=== PATIENT | male | born 1935 | race Caucasian/White ===

== ENCOUNTER 2016-12-23 08:54 | Outpatient (CLI) | payer MEDICARE ==
[2016-12-23 10:03] LABS: #Basophils 0.1 thou/uL (0.0-0.2); #Eosinphils 0.4 thou/uL (0.0-0.7); #Lymphocytes 1.6 thou/uL (1.20-3.40); #Monocytes 0.7 thou/uL (0.11-0.59); #Neutrophils 4.3 thou/uL (1.40-6.50); %Eosinophils 5.6 % (0.0-10.0); %Lymphocytes 22.6 % (21.0-51.0); %Monocytes 9.4 % (0.0-10.0); %Neutrophils 61.4 % (42.0-75.0); Hemoglobin 13.8 g/dL (14.0-18.0); Mean Corpuscular HGB CONC 30.9 g/dL (32.0-36.0); Mean Corpuscular Hemoglobin 25.8 pg (27.0-31.0); Mean Corpuscular Volume 83.6 fl (80.0-94.0); Mean Platelet Volume 7.7 fL (7.4-10.4); Platelet Count 177 thou/uL (130-400); RBC Distribution Width 17.8 % (11.5-14.5); Red Blood Cell (RBC) Count 5.37 mill/uL (4.70-6.10)
[2016-12-23 10:05] LABS: Hemoglobin A1c 5.9 % (4.0-6.0)
[2016-12-23 10:44] LABS: ALT (SGPT) 18 U/L (0-55); AST (SGOT) 21 U/L (5-34); Albumin 3.9 g/dL (3.4-4.8); Alkaline Phosphatase 62 U/L (40-150); Anion Gap 16 mmol/L (10-20); BUN (Urea Nitrogen) 30 mg/dL (8.4-25.7); Bilirubin, Direct 0.2 mg/dL (0.1-0.3); Bilirubin, Total 0.4 mg/dL (0.2-1.2); Calc. Creatinine Clearance 0 mL/min (70-130); Calcium 9.4 mg/dL (7.8-10.44); Carbon Dioxide 26 mmol/L (23-31); Cardiac Risk 3.1 (Less than 4.5); Chloride 103 mmol/L (98-107); Cholesterol 144 mg/dL (< 200 Desired); Estimated GFR-MDRD 34; Globulin 3.3 g/dL (2.4-3.5); Glucose 101 mg/dL (83-110); HDL Cholesterol 46 mg/dL (>60 Neg Risk); LDL Cholesterol, Calculated 68 mg/dL; Potassium 4.8 mmol/L (3.5-5.1); Protein, Total 7.2 g/dL (5.8-8.1); Sodium 140 mmol/L (136-145); Triglycerides 151 mg/dL (Less than 150)
[2016-12-24 12:15] LABS: % Free PSA 18.4 % (.); Total PSA 6.3 ng/mL (0.0-4.0)
== END 2016-12-23 08:55 ==
LOC: MADLABBHPM 08:54
PROVIDERS: ATTEND Urology
DX: E11.9 Type 2 diabetes mellitus without complications (principal)
CPT/HCPCS: 36415; 80053; 80061; 82248; 83036; 84153; 84154; 85025

== ENCOUNTER 2017-01-29 14:20 | Outpatient (CLI) | payer MEDICARE ==
--- NOTE | 2017-01-29 16:55 | RAD ---
TWO VIEW CHEST: Comparison: 01-28-16 Clinical history: Bronchitis. FINDINGS: Re-demonstration of sternotomy. Cardiac silhouette is stable. There is a new nodular density at the right lung base. Chest is otherwise stable. IMPRESSION: Nodular density of the right lung base. This is nonspecific. Possibility of underlying pulmonary nod ule is the diagnosis of exclusion. Recommend follow up CT thorax for further evaluation. Code T POS: CHRISTIE
== END 2017-01-29 14:21 | disposition home or self-care (01) ==
LOC: MADRAD 14:20
PROVIDERS: ATTEND Family Medicine
DX: J45.909 Unspecified asthma, uncomplicated (principal); J98.4 Other disorders of lung
CPT/HCPCS: 71020

== ENCOUNTER 2017-06-18 09:29 | Outpatient (CLI) | payer MEDICARE ==
[2017-06-18 10:06] LABS: #Basophils 0.1 thou/uL (0.0-0.2); #Eosinphils 0.1 thou/uL (0.0-0.7); #Lymphocytes 1.4 thou/uL (1.20-3.40); #Monocytes 0.6 thou/uL (0.11-0.59); #Neutrophils 5.7 thou/uL (1.40-6.50); %Basophils 0.9 % (0.0-1.0); %Eosinophils 1.4 % (0.0-10.0); %Lymphocytes 17.8 % (21.0-51.0); %Monocytes 8.1 % (0.0-10.0); %Neutrophils 71.7 % (42.0-75.0); Hemoglobin 14.9 g/dL (14.0-18.0); Mean Corpuscular HGB CONC 30.4 g/dL (32.0-36.0); Mean Corpuscular Hemoglobin 25.8 pg (27.0-31.0); Mean Corpuscular Volume 85.1 fl (80.0-94.0); Mean Platelet Volume 8.4 fL (7.4-10.4); Platelet Count 180 thou/uL (130-400); RBC Distribution Width 15.5 % (11.5-14.5); Red Blood Cell (RBC) Count 5.79 mill/uL (4.70-6.10); White Blood Cell (WBC) Count 7.9 thou/uL (4.8-10.8)
[2017-06-18 11:23] LABS: Hemoglobin A1c 7.1 % (4.0-6.0)
[2017-06-18 11:32] LABS: ALT (SGPT) 30 U/L (8-55); AST (SGOT) 19 U/L (5-34); Albumin 3.6 g/dL (3.4-4.8); Alkaline Phosphatase 64 U/L (40-150); Anion Gap 14 mmol/L (10-20); BUN (Urea Nitrogen) 26 mg/dL (8.4-25.7); Bilirubin, Direct 0.2 mg/dL (0.1-0.3); Bilirubin, Total 0.4 mg/dL (0.2-1.2); Calc. Creatinine Clearance 0 mL/min (70-130); Calcium 9.2 mg/dL (7.8-10.44); Carbon Dioxide 30 mmol/L (23-31); Cardiac Risk 3.4 (Less than 4.5); Chloride 102 mmol/L (98-107); Cholesterol 172 mg/dl (< 200 Desired); Estimated GFR-MDRD 33; Glucose 124 mg/dL (83-110); HDL Cholesterol 50 mg/dL (>60 Neg Risk); LDL Cholesterol, Calculated 85 mg/dL; Potassium 3.8 mmol/L (3.5-5.1); Protein, Total 7.1 g/dL (5.8-8.1); Sodium 142 mmol/L (136-145); Triglycerides 183 mg/dL (Less than 150)
== END 2017-06-18 09:30 | disposition home or self-care (01) ==
LOC: MADLABBHPM 09:29
PROVIDERS: ATTEND Family Medicine
DX: E78.5 Hyperlipidemia, unspecified (principal); E11.22 Type 2 diabetes mellitus with diabetic chronic kidney disease; N18.9 Chronic kidney disease, unspecified
CPT/HCPCS: 36415; 80048; 80061; 80076; 83036; 85025

== ENCOUNTER 2018-02-03 14:13 | Outpatient (CLI) | payer MEDICARE ==
--- NOTE | 2018-02-03 16:04 | RAD ---
CHEST PA AND LATERAL: 02/03/18 HISTORY: 82-year-old male with history of pulmonary nodule. COMPARISON: 01/29/17. FINDINGS: Postop midline sternotomy. Heart size is within normal limits. A poorly circumscribed focal asymmetry seen on the prior study is not redemonstrated on today's study, although there is slightly less insp iration and this could conceivably be hidden by the diaphragm. Minimal bilateral pleural thickening. No new process. IMPRESSION: Somewhat poorly defined nodular area seen in the right lower chest on the prior study is not redemons trated on this study, although may be obscured by the overlying right hemidiaphragm. Consider followu p chest CT scan to completely rule out the possibility of a small right lower lobe pulmonary nodule. POS: CHRISTIE
== END 2018-02-03 14:14 | disposition home or self-care (01) ==
LOC: MADLAB 14:13
DX: R91.1 Solitary pulmonary nodule (principal)
CPT/HCPCS: 71046

== ENCOUNTER 2018-02-25 13:59 | Inpatient (IN) | payer MEDICARE ==
[~2018-02-25 13:59] MED LIST: Iopamidol 370 76% 100 ML VIAL ONE; Sodium Chloride 0.9% 1,000 ML BAG ONE
[2018-02-25] MEDS ORDERED: Ondansetron HCl/PF 4 MG/2 ML Vial ONE (14:16)
[2018-02-25] MEDS ORDERED: Morphine 10 MG/ML VIAL ONE (14:16)
[2018-02-25 14:26] LABS: #Basophils 0.1 thou/uL (0.0-0.2); #Eosinphils 0.1 thou/uL (0.0-0.7); #Lymphocytes 1.3 thou/uL (1.20-3.40); %Basophils 0.6 % (0.0-1.0); %Eosinophils 0.6 % (0.0-10.0); %Lymphocytes 12.3 % (21.0-51.0); %Monocytes 9.4 % (0.0-10.0); %Neutrophils 77.1 % (42.0-75.0); Hemoglobin 15.3 g/dL (14.0-18.0); Mean Corpuscular HGB CONC 31.4 g/dL (32.0-36.0); Mean Corpuscular Hemoglobin 27.2 pg (27.0-31.0); Mean Corpuscular Volume 86.6 fl (80.0-94.0); Mean Platelet Volume 6.9 fL (7.4-10.4); Platelet Count 173 thou/uL (130-400); RBC Distribution Width 13.9 % (11.5-14.5); Red Blood Cell (RBC) Count 5.65 mill/uL (4.70-6.10); White Blood Cell (WBC) Count 10.3 thou/uL (4.8-10.8)
[2018-02-25 14:37] LABS: PTT 30.5 SEC (22.9-36.1); Prothrombin Time 13.5 SEC (12.0-14.7)
[2018-02-25 14:48] LABS: ALT (SGPT) 32 U/L (8-55); AST (SGOT) 28 U/L (5-34); Albumin 3.7 g/dL (3.4-4.8); Alkaline Phosphatase 52 U/L (40-150); Anion Gap 16 mmol/L (10-20); BUN (Urea Nitrogen) 24 mg/dL (8.4-25.7); Bilirubin, Total 0.8 mg/dL (0.2-1.2); Calc. Creatinine Clearance 0 mL/min (70-130); Calcium 9.3 mg/dL (7.8-10.44); Carbon Dioxide 29 mmol/L (23-31); Chloride 99 mmol/L (98-107); Estimated GFR-MDRD 36; Globulin 3.4 g/dL (2.4-3.5); Glucose 136 mg/dL (83-110); Lipase 39 U/L (8-78); Potassium 4.2 mmol/L (3.5-5.1); Protein, Total 7.1 g/dL (5.8-8.1); Sodium 140 mmol/L (136-145)
--- NOTE | 2018-02-25 15:37 | CT ---
CT OF THE BRAIN WITHOUT CONTRAST: Date: 02/25/18 COMPARISON: 01/23/16. HISTORY: Fell down stairs with head injury. TECHNIQUE: Multiple contiguous axial images were obtained in a CT of the brain without contrast. FINDINGS: There are diffuse hypodensities in the subcortical and periventricular white matter, likely secondary to small vessel ischemic disease. No large confluent infarction is seen. There is no evidence of hyd rocephalus, intracranial hemorrhage, or extra-axial fluid collection. Calvarium and overlying soft tissues are unremarkable. The visualized mastoid air cells are well aera pat. Fluid is seen in the bilateral maxillary sinuses. IMPRESSION: 1. No evidence of acute intracranial abnormality. 2. Extensive small vessel ischemic disease. POS: [facility]
[2018-02-25] MEDS ORDERED: Adacel (T-DAP) 0.5 ML VIAL ONE (16:09)
--- NOTE | 2018-02-25 16:15 | CT ---
CHEST CT WITH CONTRAST ABDOMEN CT WITH CONTRAST PELVIC CT WITH CONTRAST LIMITED CT OF THE THORACIC AND LUMBAR SPINE 02/25/18 HISTORY: Patient fell down some stairs yesterday. Left sided pain. COMPARISON: None. TECHNIQUE: Chest, abdomen and pelvic CT are performed with IV contrast. Coronal reformatted images are submitted for interpretation. Limited CT of the thoracic and lumbar spine with reformatted images. FINDINGS: CHEST CT: No mediastinal mass, lymphadenopathy or hematoma. Heart size is upper normal. No significant pericard ial fluid. The thoracic aorta and abdominal aorta have a normal caliber. No periaortic fat stranding. There is opacification of the right lower lobe which may represent aspiration pneumonia versus atelec tasis. Pulmonary contusion is less favored given no evidence of right thoracic injury. Dependent atel ectatic changes in the left lower lobe. Small left sided pleural effusion is suspected. Trachea and c entral bronchi are patent. No pneumothorax. ABDOMEN CT: Nonspecific subcentimeter hypodensity in the liver. Liver, spleen, pancreas, and adrenal glands have appropriate arterial phase enhancement. Gallbladder is surgically absent. Portal vein is unremarkable. Exophytic hypodensity emanating from the lower pole of the left kidney measuring 11.7 cm has a small peripheral area of nodular enhancement measuring 1.2 cm which may represent a small focus of renal pa renchyma or possible enhancement of the wall of the cyst. There is an isodense lesion in the mid pole of the right kidney with attenuation coefficient of 54 Hounsfield units measuring 1.4 cm. No evidenc e of obstructive uropathy. No gastrohepatic, retrocrural or periportal lymphadenopathy. No mesenteric mass, lymphadenopathy, free air or free fluid. Limited evaluation of the alimentary canal due to lack of oral contrast. No evidence of bowel obstruc tion. Ileocecal junction is normal. Normal caliber appendix. No evidence of colon obstruction. There is diverticulosis, without evidence of diverticulitis. There are fractures involving the left third, fourth, fifth, sixth ribs. There is mild displacement o f multiple ribs. No evidence of a right rib fracture. Sternotomy changes are noted. The bony pelvis i s intact. PELVIC CT: No pelvic mass, lymphadenopathy, free air or free fluid. Urinary bladder is unremarkable. CT OF THE THORACIC AND LUMBAR SPINE. Vertebral body heights are maintained. No fracture. IMPRESSION: 1. Multiple left sided rib fractures. 2. No evidence of pneumothorax. 3. Opacification of the right lower lobe which may be due to atelectasis or pneumonia. 4. Possible Bosniak 3 lesion involving the right kidney. Urological consultation is recommended nonemergently. POS: CHRISTIE
[2018-02-25] MEDS ORDERED: HYDROcodone/Acetaminophen 5/325 mg Tablet ONE (16:42)
[2018-02-25] MEDS ORDERED: Ondansetron ODT 4 MG TAB PO PRN (17:13)
[2018-02-25] MEDS ORDERED: Acetaminophen 325 MG TAB PO PRN (17:13)
[2018-02-25] MEDS ORDERED: HYDROcodone/Acetaminophen 5/325 mg Tablet PO PRN ×3 (17:13→18:41)
[2018-02-25 17:30] VITALS: BMI 27.3
[2018-02-25] MEDS ORDERED: Meclizine HCl 25 MG TAB PO PRN (18:36)
[2018-02-25] MEDS: HYDROcodone/Acetaminophen 5/325 mg Tablet PO PRN (20:36)
[2018-02-25] MEDS: Fluticasone Propionate Nasal Spray 16 gm Bottle NASAL SCH (20:37)
[2018-02-25] MEDS: Senokot 8.6 MG TAB PO SCH (20:39)
[2018-02-25] MEDS: Docusate 100 MG CAP PO SCH (20:39)
[2018-02-25] MEDS: Clopidogrel Bisulfate 75 MG TAB PO SCH (20:39)
[2018-02-25] MEDS: Albuterol Sulfate 2.5 mg/3 ml Neb NEB SCH (20:40)
[2018-02-25] MEDS: Famotidine 20 MG TAB PO SCH (20:41)
[2018-02-25] MEDS: Tamsulosin HCl 0.4 MG CAP PO SCH (20:41)
[2018-02-25] MEDS: Cephalexin 500 MG CAP PO SCH (20:45)
[2018-02-25] MEDS: Melatonin 3 MG TAB PO SCH (20:45)
[2018-02-25] MEDS: ALOE VERA PO SCH (20:46)
[2018-02-25] MEDS: Pitavastatin Calcium [Livalo] 4 MG PO SCH (20:46)
--- NOTE | 2018-02-26 03:11 | HP ---
DATE OF ADMISSION: 02/26/2018 CHIEF COMPLAINT: Fell and hurt his upper back. PRESENT ILLNESS: Patient is an 82-year-old white male who has a history of hypertension, coronary ar mark disease, for which he is asymptomatic, chronic kidney disease, and severe generalized osteoarthr itis. He has undergone a right total knee replacement that was complicated by fall requiring a repai r and washout after had bust it open from the fall, this later became infected and required removal o f hardware and long-term IV antibiotics eventually underwent a right total knee arthroplasty on 05/09, and complete the 6-week course of IV ceftriaxone, did very well. He is on long-term suppressi ve antibiotics with cephalexin. Patient is independent of his ADLs, but has chronic pain in the knee s and legs and gets around with the use of a cane. He lives at home where he assisted his who h as early Alzheimer's. Patient had been seen in the office on 02/23/2018 for routine checkup and he w as doing well other than the chronic pain in the legs. He was managing this with one hydrocodone at night time that allowed him relief from the pain and allowed him to rest. Patient had a fall that same day. He had gone to visit his son and was stepping off a porch that had 2 steps and he ma naged to get onto the upper step, but then somehow fell onto the ground and hit his left upper back. He had immediate pain. He had no loss of consciousness, did not think he hit his head. He had rest less night. He had this hydrocodone that he used to help and the following day 02/24/2018, he said h e could just not doing very well. He is having a hard time getting around, his legs felt weak. On 0 02/25/2018, he was no better, still had the pain in the right upper back and was weak that had not muc h of an appetite and could hardly get around. His family brought him to the emergency room, where he was evaluated and there he underwent CT scan of the chest, abdomen, and pelvis that showed a fractur e of the left posterior third, fourth, fifth and sixth ribs with mild displacement. There was no aurelio dence of pneumothorax. He had some mild opacification of the right lower lobe that probably was from atelectasis, also noted that he had a lesion of the right kidney that was considered a Bosniak 3 les ion and recommended nonemergent neurologic consult. He had a CT scan of the brain that showed no acu te changes, but did show extensive small vessel ischemic changes. Patient initially was given morphi ne to help with his pain, later hydrocodone. His O2 saturation room air was 89%, for which he was pl aced on O2 and he was admitted for control of the pain and treatment of the atelectasis. Patient was seen in his room soon after his admission and he was able to relay to me the history of w hat had happened. He said he has had a lot of pain in that left upper back particularly with movemen t or breathing and he said he cannot use the left arm. His legs have been very weak. He said he has not been short of breath. Patient has been trying to manage the pain at home with the hydrocodone u sually only takes 10/325 in the mornings to help get him go on, but lately he has been having to take some more. Also in the emergency room, CBC was done that showed an H&H of 15.3 and 48.6, white cell count 10,300 with 77% segs, 12% lymphocytes, platelet count of 173,000. His PT was 13.5, INR 1, PTT 30.5. Sodium 140, potassium 4.2, BUN 24, creatinine 1.81, GFR 36, glucose 136, albumin 3.7. PAST HISTORY: Patient has severe generalized osteoarthritis, particularly of the right knee. He [place] underwent replacement of that right knee on 08/06/2016. After he went home, he had a fall, op ening the incision with near displacement requiring repeat operation repair of medial collatera l ligaments on 01/19/2016. 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 He underwent excisional arthropl asty and right total knee temporary arthroplasty on 05/09/2016. He completed a 6-week course of IV ceftriaxone and then he went in for a revision of the right total knee arthroplasty on 08/06/2016. Barbie wiseman has since been on cephalexin 500 mg b.i.d. for the infected right total knee arthroplasty. He has had no recurrence of the infection in the knee does pretty well. He is able to ambulate with the use of a cane, but the knee still causes some chronic pain. Patient has coronary artery disease, for wh [facility] he has undergone a coronary artery bypass x4 in 2008. He has since been asymptomatic. He has hy pertension, hypercholesterolemia, benign prostatic hypertrophy, depression, insomnia, neuropathy of t he lower extremities, chronic kidney disease stage 3, gastroesophageal reflux disease, history of olegario betes has been controlled with diet alone, obstructive sleep apnea, tobacco abuse from chewing tobacc o, EGD 2010 showed Grgeg's esophagus, hiatal hernia, status post cholecystectomy. Patient has had a lithotripsy for renal calculus. Colonoscopy 04 showed diverticulosis, repeat 05/08/2014 showed div erticulosis, depression. PRESENT MEDICATIONS: Cephalexin 500 mg b.i.d. indefinitely, Aloe vera 120 mg b.i.d. for his arthriti s, vitamin D3 of 5000 units daily, Zyrtec 10 mg daily, carvedilol 3.125 mg b.i.d., aspirin 81 mg clementina y, Livalo 4 mg at bedtime, Senna 1 tablet at bedtime, Antivert 1-2 tablets b.i.d. p.r.n. vertigo, the se were the 12.5 mg, melatonin 3 mg at bedtime, Zetia 10 mg daily, fluticasone 2 sprays in each nostr um daily, hydrocodone/acetaminophen 10/325 one daily p.r.n., tamsulosin 40 mg daily, Plavix 75 mg tiffanie ly, venlafaxine 150 mg q.a.m. ALLERGIES: PENICILLIN causes a rash, LEVAQUIN causes a rash, SIMVASTATIN myalgias, CELEXA nausea, an d vomiting, LYRICA myalgias, NIACIN myalgias, NEXIUM headaches, CRESTOR myalgias, ATORVASTATIN myalgi as. REVIEW OF SYSTEMS: Patient said he has not had any recent fevers, had no recent weight gain or loss. Head and Neck: No complaints. Pulmonary: Patient said he is not breathing well deep because it h urts. He has not felt short of breath. He has not been coughing. Cardiovascular: No anterior ches t pain. Gastrointestinal: Appetite diminished. He has had no nausea or vomiting, no change in dave l habits. Musculoskeletal: Patient has a lot of pain in his legs from his arthritis and multiple keys rgeries on the right knee. ADLs: Patient is independent of his ADLs, ambulates with the use of a wa lker. Patient still drives and looks after his and a son. HABITS: Alcohol none. Tobacco, chews tobacco. PHYSICAL EXAMINATION: GENERAL: Shows an 82-year-old white male who is lying in bed with the head elevated. He is alert, b ut he has recently had the hydrocodone. He is a little slow answering his questions, but he did coleman gnize me and knows that he is in the hospital and could relate to me what had happened. VITAL SIGNS: Shows a temperature of 97.4, pulse 83, respirations 20, O2 saturation 94% on 2 liters, blood pressure 168/90, weight 201. HEAD: Normocephalic and atraumatic. EYES: Pupils are equal, round, and reactive. Sclerae nonicteric. EARS: TMs are clear. NOSE: Normal. MOUTH AND THROAT: Normal. NECK: Supple. There is no points of tenderness. Carotids are equal and strong, no bruits. Thyroid not enlarged. LUNGS: Patient has good breath sounds anteriorly. There is mild decreased breath sounds at the righ t posterior base. There is bruising over the left upper chest in the scapula and just below the scap ular area that extends across to the right side. The bruising extends down some to the left lateral chest wall. I did not feel any bony crepitation or air crepitation. He does splint when asked to ta ke a deep breath. HEART: Regular rate. No murmurs. ABDOMEN: Soft, no organomegaly, no areas of tenderness. EXTREMITIES: Upper extremity, patient keeps the left arm flexed and up against his side to help spli nt that left chest, but he is able to move the arm and there is no evidence of injury or the arms. T he lower extremities, there is no edema. There is no redness over the knees. NEUROLOGIC: Patient is alert and oriented to person, place, and situation. He has generalized weakn ess, but no focal weakness. IMPRESSION: 1. Closed mildly displaced fracture of the left posterior third, fourth, fifth and sixth ribs. A. Secondary to a fall to the ground from a porch step. B. No evidence of pneumothorax. C. Mild atelectasis of the right base. D. Pain not well controlled at home. 2. Generalized weakness. A. Complicated by gait abnormality stabilized with a cane. B. Marked decline in functional capability after a fall on 02/23/2018, resulting the multiple rib fr actures. Presently requiring assistance with his ADLs. 3. Mild hypoxemia. A. Secondary to the multiple rib fractures and atelectasis of the right base. 4. Coronary artery disease. A. Status post coronary artery bypass x4 in 2008. B. Stable, asymptomatic. 5. Hypertension. 6. Generalized osteoarthritis, particularly of the right knee. A. 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 B. Fall resulting in opening of the incision and near displacement requiring repeat operation and repair of collateral ligaments on 01/19/2016. C. 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 D. Completed 6-week course of IV ceftriaxone. E. Status post revision right total knee arthroplasty on 08/06/2016. F. Chronic suppressive antibiotics with cephalexin 500 mg b.i.d. 7. Neuropathy of the lower extremity. 8. Chronic kidney disease, stage 3. 9. Gastroesophageal reflux disease. 10. Depression. CODE STATUS: FULL CODE. PLAN: Patient has been admitted to the hospital due to the pain with multiple rib fractures. Compli cated by some splinting of the chest and hypoxemia and atelectasis of the right base. We will start him on DVT prophylaxis, incentive spirometry, supplemental O2 as needed, and nebulization treatments. The hydrocodone will be used the one every 6 hours as needed for pain in the past if he is u sed too much of this and has caused some confusional problem. We will increase his activities when a ble, we will have physical therapy begin working with him. See orders.
[2018-02-26] MEDS: HYDROcodone/Acetaminophen 5/325 mg Tablet PO PRN ×4 (03:41→23:33)
[2018-02-26 05:16] LABS: #Basophils 0.1 thou/uL (0.0-0.2); #Eosinphils 0.2 thou/uL (0.0-0.7); #Lymphocytes 1.2 thou/uL (1.20-3.40); #Monocytes 0.8 thou/uL (0.11-0.59); #Neutrophils 6.3 thou/uL (1.40-6.50); %Basophils 0.9 % (0.0-1.0); %Eosinophils 2.6 % (0.0-10.0); %Lymphocytes 13.4 % (21.0-51.0); %Monocytes 9.6 % (0.0-10.0); %Neutrophils 73.4 % (42.0-75.0); Hemoglobin 14.5 g/dL (14.0-18.0); Mean Corpuscular HGB CONC 31.6 g/dL (32.0-36.0); Mean Corpuscular Hemoglobin 27.4 pg (27.0-31.0); Mean Corpuscular Volume 86.7 fl (80.0-94.0); Mean Platelet Volume 6.9 fL (7.4-10.4); Platelet Count 146 thou/uL (130-400); Red Blood Cell (RBC) Count 5.28 mill/uL (4.70-6.10); White Blood Cell (WBC) Count 8.5 thou/uL (4.8-10.8)
[2018-02-26 05:28] LABS: Anion Gap 17 mmol/L (10-20); BUN (Urea Nitrogen) 25 mg/dL (8.4-25.7); Calc. Creatinine Clearance 39 mL/min (70-130); Carbon Dioxide 29 mmol/L (23-31); Chloride 100 mmol/L (98-107); Estimated GFR-MDRD 34; Glucose 122 mg/dL (83-110); Potassium 4.2 mmol/L (3.5-5.1); Sodium 142 mmol/L (136-145)
[2018-02-26] MEDS: Ezetimibe 10 MG TAB PO SCH (08:56)
[2018-02-26] MEDS: Venlafaxine HCl XR 150 MG CAP PO SCH (08:56)
[2018-02-26] MEDS: Loratadine 10 MG TAB PO SCH (08:57)
[2018-02-26] MEDS: Cephalexin 500 MG CAP PO SCH ×2 (08:57→20:39)
[2018-02-26] MEDS: Albuterol Sulfate 2.5 mg/3 ml Neb NEB SCH ×4 (08:57→21:00)
[2018-02-26] MEDS: Carvedilol 3.125 MG TAB PO SCH ×2 (08:57→17:15)
[2018-02-26] MEDS: Docusate 100 MG CAP PO SCH ×2 (08:59→20:40)
[2018-02-26] MEDS ORDERED: Pantoprazole 40 MG GRANULES PACKET PO SCH (09:00)
[2018-02-26] MEDS ORDERED: Prevnar 13-Val Conj/PF 0.5 ML SYRINGE IM ONE (09:00)
[2018-02-26] MEDS: ALOE VERA PO SCH ×2 (09:01→20:42)
[2018-02-26] MEDS: Enoxaparin Sodium 40 MG/0.4 ML SYRINGE SC SCH (09:02)
--- NOTE | 2018-02-26 12:28 | PRG ---
DATE OF SERVICE: 02/26/2018 SUBJECTIVE: The patient said he is doing okay this morning. He said he still hurts in that left upp er back typically with movement and breathing. He said he has never really had anything hurt as much as these broken ribs. He is breathing good this morning. OBJECTIVE: The patient is sitting up on the side of the bed. Physical therapy is beginning to work with him. The movement to that position was uncomfortable, but he seemed very comfortable sitting the re. He is in no acute distress. His vital signs show a temperature 97.1, pulse 93, respirations 20, O2 sat 95% on 2 liters, blood pressure 166/106, earlier it was 134/95. Lungs; the patient has good breath sounds that are equal on the anterior and posterior chest. The patient has some expiratory rh onchi and some wheeze in the chest. There are no rales. There is bruising across the upper left angel st in the scapular area that extends a little bit across midline to the right side. Heart has regula r rate. Extremities; no edema. His lab shows an H&H of 14.5 and 45.8, white cell count 8500 with 73% segs, 13% lymphocytes, and a pl atelet count 146,000. Sodium 142, potassium 4.2, BUN 25, creatinine 1.9, GFR 34, yesterday 36. FBS 122. ASSESSMENT: 1. Closed mildly displaced fracture of the left posterior third, fourth, fifth and sixth ribs. A. Secondary to a fall to the ground from a porch step on 02/23/2018. B. No evidence of pneumothorax. C. Complicated by mild atelectasis of the right base. Improved as of 02/26/2018. D. Pain better controlled as of 02/26/2018. E. Complicated by bronchitis as of 02/26/2018. 2. Generalized weakness. A. Complicated by gait abnormality stabilized with a cane. B. Marked decline in functional capability after a fall on 02/23/2018, resulting the multiple rib fr actures. Presently requiring assistance with his ADLs. 3. Mild hypoxemia. A. Secondary to the multiple rib fractures and atelectasis of the right base. 4. Coronary artery disease. A. Status post coronary artery bypass x4 in 2008. B. Stable, asymptomatic. 5. Hypertension. 6. Generalized osteoarthritis, particularly of the right knee. A. 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 B. Fall resulting in opening of the incision and near displacement of the TKR requiring repeat opera tion with washout and repair of the collateral ligaments on 01/19/2016. C. 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 D. Completed 6-week course of IV ceftriaxone. E. Status post revision right total knee arthroplasty on 08/06/2016. F. Chronic suppressive antibiotics with cephalexin 500 mg b.i.d. 7. Neuropathy of the lower extremity. 8. Chronic kidney disease, stage 3. 9. Gastroesophageal reflux disease. 10. Depression. PLAN: Continue present care. The patient will continue incentive spirometry, neb treatment, supplem ental O2. Physical therapy is working with him for general strength and gait.
[2018-02-26] MEDS: Famotidine 20 MG TAB PO SCH (20:39)
[2018-02-26] MEDS: Tamsulosin HCl 0.4 MG CAP PO SCH (20:39)
[2018-02-26] MEDS: Clopidogrel Bisulfate 75 MG TAB PO SCH (20:39)
[2018-02-26] MEDS: Melatonin 3 MG TAB PO SCH (20:40)
[2018-02-26] MEDS: Senokot 8.6 MG TAB PO SCH (20:40)
[2018-02-26] MEDS: Pitavastatin Calcium [Livalo] 4 MG PO SCH (20:42)
[2018-02-26] MEDS ORDERED: cloNIDine 0.1 MG TAB ONE (21:13)
[2018-02-27] MEDS: Fluticasone Propionate Nasal Spray 16 gm Bottle NASAL SCH ×2 (02:12→20:17)
[2018-02-27] MEDS: HYDROcodone/Acetaminophen 5/325 mg Tablet PO PRN ×2 (04:22→11:09)
[2018-02-27] MEDS: cloNIDine 0.1 MG TAB PO PRN ×2 (04:23→16:05)
[2018-02-27] MEDS: Albuterol Sulfate 2.5 mg/3 ml Neb NEB SCH ×4 (08:34→20:25)
[2018-02-27] MEDS: Carvedilol 3.125 MG TAB PO SCH ×2 (08:34→16:05)
[2018-02-27] MEDS: Enoxaparin Sodium 40 MG/0.4 ML SYRINGE SC SCH (08:35)
[2018-02-27] MEDS: Docusate 100 MG CAP PO SCH ×2 (08:35→20:16)
[2018-02-27] MEDS: Loratadine 10 MG TAB PO SCH (08:35)
[2018-02-27] MEDS: Cephalexin 500 MG CAP PO SCH ×2 (08:35→20:16)
[2018-02-27] MEDS: Ezetimibe 10 MG TAB PO SCH (08:35)
[2018-02-27] MEDS: Venlafaxine HCl XR 150 MG CAP PO SCH (08:36)
[2018-02-27] MEDS: ALOE VERA PO SCH ×2 (08:36→20:18)
--- NOTE | 2018-02-27 11:09 | PRG ---
DATE OF SERVICE: 02/27/2018 SUBJECTIVE: The patient said he is doing better. He is able to get up into a chair with help and th e movement still creates quite a bit of pain from those fractured ribs. He is with help standing, ab le to walk some, any deep breathing or cough creates severe pain from the ribs. Overall, he thinks h e is a little better. His level of assistance is still beyond what support he would have in the home . OBJECTIVE: GENERAL: The patient is sitting up in a bedside chair. He is alert, talkative, appears comfortable, but when he coughed, he had a sharp pain in that left chest from the rib is never fractured. VITAL SIGNS: His temperature is 96.7, pulse 85, respirations 16, O2 sat is 96% on 2 liters, blood pr essure 130/84, last night blood pressure had risen to 189/207. He was given clonidine 0.1 mg for thi s and the pressure normalized. LUNGS: Clear. There are still some coarse expiratory breath sounds, but did not hear the rhonchi an d wheezes he had yesterday. Breath sounds at the bases are good and equal. HEART: Regular rate. EXTREMITIES: No edema. BACK: Over his back over the upper back scapular area on the left, there is still the transverse str ipe of bruising from the fall. ASSESSMENT: 1. Closed mildly displaced fracture of the left posterior third, fourth, fifth and sixth ribs. A. Secondary to a fall to the ground from a porch step on 02/23/2018. B. No evidence of pneumothorax. C. Complicated by mild atelectasis of the right base. Improved as of 02/27/2018. D. Pain better controlled as of 02/27/2018. E. Complicated by bronchitis that is improving as of 02/27/2018. 2. Generalized weakness. A. Complicated by gait abnormality stabilized with a cane. B. Marked decline in functional capability after a fall on 02/23/2018, resulting the multiple rib fr actures. Presently requiring assistance with his ADLs. C. Improving as of 02/27/2018. 3. Mild hypoxemia. A. Secondary to the multiple rib fractures and atelectasis of the right base. 4. Coronary artery disease. A. Status post coronary artery bypass x4 in 2008. B. Stable, asymptomatic. 5. Hypertension. A. Episode of increasing pressure on the evening of 02/26/2018 that was managed with clonidine p.o. Blood pressure is normal as of the morning of 02/27/2018. Remaining diagnoses are the same. 6. Generalized osteoarthritis, particularly of the right knee. A. 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 B. Fall resulting in opening of the incision and near displacement of the TKR requiring repeat opera tion with washout and repair of the collateral ligaments on 01/19/2016. C. 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 D. Completed 6-week course of IV ceftriaxone. E. Status post revision right total knee arthroplasty on 08/06/2016. F. Chronic suppressive antibiotics with cephalexin 500 mg b.i.d. 7. Neuropathy of the lower extremity. 8. Chronic kidney disease, stage 3. 9. Gastroesophageal reflux disease. 10. Depression. PLAN: Continue present care. Continue physical therapy. We will reevaluate the patient in the [facility] ing. Anticipate moving him then to extended care for continued physical therapy in an effort to impr ove his general strength, gait, and functional capabilities.
[2018-02-27] MEDS: Clopidogrel Bisulfate 75 MG TAB PO SCH (20:15)
[2018-02-27] MEDS: Tamsulosin HCl 0.4 MG CAP PO SCH (20:15)
[2018-02-27] MEDS: Famotidine 20 MG TAB PO SCH (20:15)
[2018-02-27] MEDS: Melatonin 3 MG TAB PO SCH (20:16)
[2018-02-27] MEDS: Senokot 8.6 MG TAB PO SCH (20:16)
[2018-02-27] MEDS: Pitavastatin Calcium [Livalo] 4 MG PO SCH (20:16)
[2018-02-28] MEDS: cloNIDine 0.1 MG TAB PO PRN (05:52)
[2018-02-28 07:00] VITALS: TEMP 98
[2018-02-28] MEDS: HYDROcodone/Acetaminophen 5/325 mg Tablet PO PRN (07:36)
[2018-02-28] MEDS: Carvedilol 3.125 MG TAB PO SCH (07:38)
[2018-02-28] MEDS: Venlafaxine HCl XR 150 MG CAP PO SCH (08:28)
[2018-02-28] MEDS: Docusate 100 MG CAP PO SCH (08:28)
[2018-02-28] MEDS: Cephalexin 500 MG CAP PO SCH (08:28)
[2018-02-28] MEDS: Loratadine 10 MG TAB PO SCH (08:28)
[2018-02-28] MEDS: Ezetimibe 10 MG TAB PO SCH (08:28)
[2018-02-28] MEDS: Enoxaparin Sodium 40 MG/0.4 ML SYRINGE SC SCH (08:29)
[2018-02-28] MEDS: ALOE VERA PO SCH (08:30)
[2018-02-28] MEDS: Albuterol Sulfate 2.5 mg/3 ml Neb NEB SCH (08:31)
[2018-02-28 10:50] VITALS: BP 167/92
--- NOTE | 2018-02-28 13:14 | PRG ---
DATE OF SERVICE: 02/28/2018 SUBJECTIVE: The patient said he still has the pain when he tries to get up and down out of bed and w hen he coughs. His breathing he thinks he is doing pretty good. He is able to get around a little b grisel, but still has the pain. OBJECTIVE: GENERAL: The patient is sitting up in a chair. He appears comfortable. VITAL SIGNS: Shows a temperature 98, pulse 86, respirations 22, O2 sat 92% on room air, blood pressu re 183/93. LUNGS: Clear. There is a little coarseness on forced expiration, otherwise chest clear. HEART: Regular rate. EXTREMITIES: No edema. ASSESSMENT: 1. Closed mildly displaced fracture of the left posterior third, fourth, fifth and sixth ribs. A. Secondary to a fall to the ground from a porch step on 02/23/2018. B. No evidence of pneumothorax. C. Complicated by mild atelectasis of the right base. Improved as of 02/28/2018. D. The patient still has pain with movement and deep breathing, but overall a little better as far a s 02/28/2018. E. Complicated by bronchitis that is improving as of 02/28/2018. 2. Generalized weakness. A. Complicated by gait abnormality stabilized with a cane. B. Marked decline in functional capability after a fall on 02/23/2018, resulting the multiple rib fr actures. Presently requiring assistance with his ADLs. C. Improving as of 02/27/2018. 3. Mild hypoxemia. A. Secondary to the multiple rib fractures and atelectasis of the right base. B. Resolving as of 02/28/2018. 4. Coronary artery disease. A. Status post coronary artery bypass x4 in 2008. B. Stable, asymptomatic. 5. Hypertension. 5. A. Not adequately controlled as of 02/28/2018. 6. Generalized osteoarthritis, particularly of the right knee. A. 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 B. Fall resulting in opening of the incision and near displacement of the TKR requiring repeat opera tion with washout and repair of the collateral ligaments on 01/19/2016. C. 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 D. Completed 6-week course of IV ceftriaxone. E. Status post revision right total knee arthroplasty on 08/06/2016. F. Chronic suppressive antibiotics with cephalexin 500 mg b.i.d. 7. Neuropathy of the lower extremity. 8. Chronic kidney disease, stage 3. 9. Gastroesophageal reflux disease. 10. Depression. PLAN: We will start the patient on low dose lisinopril 10 mg daily. We will move the patient to [facility] for continuation of physical therapy. Continue the incentive spirometry. Continue deep v enous thrombosis prophylaxis.
== END 2018-02-28 10:51 | disposition swing bed (61) | DRG 184 ==
LOC: MADERS 13:59 → MADMS 16:21
PROVIDERS: ADMIT Family Medicine; ATTEND Family Medicine
DX: S22.42XA Multiple fractures of ribs, left side, initial encounter for closed fracture (principal); J98.11 Atelectasis; W10.8XXA Fall (on) (from) other stairs and steps, initial encounter; I25.10 Atherosclerotic heart disease of native coronary artery without angina pectoris; I12.9 Hypertensive chronic kidney disease with stage 1 through stage 4 chronic kidney disease, or unspecified chronic kidney disease; N18.3 Chronic kidney disease, stage 3 (moderate); M19.90 Unspecified osteoarthritis, unspecified site; Z96.651 Presence of right artificial knee joint; G62.9 Polyneuropathy, unspecified; F17.210 Nicotine dependence, cigarettes, uncomplicated; F32.9 Major depressive disorder, single episode, unspecified
CPT/HCPCS: 36415; 70450; 71260; 74177; 80048; 80053; 83690; 85025; 85610; 85730; 90471; 90715; 94640; 96361; 96374; 96375; A4216; G8978-GP-CK; G8979-GP-CI; J1650; J2270; J2405; J7050; J7611; Q0162

== ENCOUNTER 2018-02-28 10:59 | Inpatient (IN) | payer MEDICARE ==
[2018-02-28 11:13] VITALS: BMI 27.3
[2018-02-28] MEDS ORDERED: HYDROcodone/Acetaminophen 5/325 mg Tablet PO PRN (11:52)
[2018-02-28] MEDS ORDERED: Meclizine HCl 25 MG TAB PO PRN (11:53)
[2018-02-28] MEDS ORDERED: Ondansetron ODT 4 MG TAB PO PRN (11:53)
[2018-02-28] MEDS: Albuterol Sulfate 2.5 mg/3 ml Neb NEB SCH ×2 (14:00→18:32)
[2018-02-28] MEDS: Carvedilol 3.125 MG TAB PO SCH (17:13)
[2018-02-28] MEDS: cloNIDine 0.1 MG TAB PO PRN (17:14)
[2018-02-28] MEDS: Fluticasone Propionate Nasal Spray 16 gm Bottle NASAL SCH (21:25)
[2018-02-28] MEDS: Famotidine 20 MG TAB PO SCH (21:25)
[2018-02-28] MEDS: Clopidogrel Bisulfate 75 MG TAB PO SCH (21:26)
[2018-02-28] MEDS: Cephalexin 500 MG CAP PO SCH (21:26)
[2018-02-28] MEDS: Docusate 100 MG CAP PO SCH (21:26)
[2018-02-28] MEDS: Melatonin 3 MG TAB PO SCH (21:26)
[2018-02-28] MEDS: Tamsulosin HCl 0.4 MG CAP PO SCH (21:27)
[2018-02-28] MEDS: Senokot 8.6 MG TAB PO SCH (21:27)
[2018-02-28] MEDS: ALOE VERA CAPSULE PO SCH (21:28)
[2018-02-28] MEDS: LIVALO 4 MG PO SCH (22:28)
[2018-03-01] MEDS: cloNIDine 0.1 MG TAB PO PRN (04:45)
[2018-03-01] MEDS: Albuterol Sulfate 2.5 mg/3 ml Neb NEB SCH ×4 (06:06→18:17)
[2018-03-01] MEDS: Acetaminophen 325 MG TAB PO PRN ×2 (07:47→17:29)
[2018-03-01] MEDS: Enoxaparin Sodium 40 MG/0.4 ML SYRINGE SC SCH (08:15)
[2018-03-01] MEDS: Carvedilol 3.125 MG TAB PO SCH ×2 (08:17→16:44)
[2018-03-01] MEDS: Cephalexin 500 MG CAP PO SCH ×2 (08:17→20:08)
[2018-03-01] MEDS: Venlafaxine HCl XR 150 MG CAP PO SCH (08:17)
[2018-03-01] MEDS: Lisinopril 10 MG TAB PO SCH (08:17)
[2018-03-01] MEDS: Ezetimibe 10 MG TAB PO SCH (08:17)
[2018-03-01] MEDS: Docusate 100 MG CAP PO SCH ×2 (08:17→20:08)
[2018-03-01] MEDS: Loratadine 10 MG TAB PO SCH (08:17)
[2018-03-01] MEDS: Aspirin 81 mg Enteric Coated Tablet PO SCH (08:18)
[2018-03-01] MEDS: ALOE VERA CAPSULE PO SCH ×2 (08:18→20:10)
[2018-03-01] MEDS: Famotidine 20 MG TAB PO SCH (20:08)
[2018-03-01] MEDS: Senokot 8.6 MG TAB PO SCH (20:08)
[2018-03-01] MEDS: Melatonin 3 MG TAB PO SCH (20:08)
[2018-03-01] MEDS: Clopidogrel Bisulfate 75 MG TAB PO SCH (20:08)
[2018-03-01] MEDS: Tamsulosin HCl 0.4 MG CAP PO SCH (20:09)
[2018-03-01] MEDS: Fluticasone Propionate Nasal Spray 16 gm Bottle NASAL SCH (20:09)
[2018-03-01] MEDS: LIVALO 4 MG PO SCH (20:11)
[2018-03-02] MEDS: Albuterol Sulfate 2.5 mg/3 ml Neb NEB SCH ×4 (06:07→18:28)
[2018-03-02] MEDS: HYDROcodone/Acetaminophen 5/325 mg Tablet PO PRN (06:09)
[2018-03-02] MEDS: Carvedilol 3.125 MG TAB PO SCH ×2 (09:07→17:41)
[2018-03-02] MEDS: Aspirin 81 mg Enteric Coated Tablet PO SCH (09:07)
[2018-03-02] MEDS: Docusate 100 MG CAP PO SCH ×2 (09:08→20:39)
[2018-03-02] MEDS: Ezetimibe 10 MG TAB PO SCH (09:08)
[2018-03-02] MEDS: Enoxaparin Sodium 40 MG/0.4 ML SYRINGE SC SCH (09:08)
[2018-03-02] MEDS: Cephalexin 500 MG CAP PO SCH ×2 (09:08→20:39)
[2018-03-02] MEDS: Venlafaxine HCl XR 150 MG CAP PO SCH (09:09)
[2018-03-02] MEDS: Loratadine 10 MG TAB PO SCH (09:09)
[2018-03-02] MEDS: Lisinopril 10 MG TAB PO SCH (09:17)
[2018-03-02] MEDS: ALOE VERA CAPSULE PO SCH ×2 (09:22→20:40)
--- NOTE | 2018-03-02 15:52 | PRG ---
DATE OF SERVICE: 03/02/2018 SUBJECTIVE: The patient is doing better. He is walking well, still has trouble with transfers. Sti ll has pain, but it is a little better. He did have for the first several days while in the hospital , a little bit of confusion that the family feels like is related to the morphine. They said in the p ast when he has received this, it has taken a couple of weeks to completely get his mind back to his baseline. This morning he is already up and walking. He says he does feel better. Most of the time he is only receiving 1 hydrocodone 5/325 for pain and this seemed to be working well. OBJECTIVE: The patient is sitting up in a chair. He is alert, appears comfortable in no distress. His temp 98.1, pulse 85, O2 sat is 91% on room air, respirations 20, blood pressure 178/87, earlier 1 39/78. Lungs are clear with good breath sounds. Heart, regular rate. Extremities, no edema. ASSESSMENT: 1. Closed mildly displaced fracture of the left posterior third, fourth, fifth and sixth ribs. A. Secondary to a fall to the ground from a porch step on 02/23/2018. B. No evidence of pneumothorax. C. Complicated by mild atelectasis of the right base, clinically resolved as of 03/02/2018. D. The patient still has pain with movement and deep breathing. Overall, though, this is improving as of 03/02/2018. E. Complicated by bronchitis that is improving as of 03/02/2018. 2. Generalized weakness. A. Complicated by gait abnormality stabilized with a cane. B. Marked decline in functional capability after a fall on 02/23/2018, resulting the multiple rib fr actures. Presently requiring assistance with his ADLs. C. Improving as of 03/02/2018. 3. Mild hypoxemia. A. Secondary to the multiple rib fractures and atelectasis of the right base. B. Resolving as of 02/28/2018. 4. Coronary artery disease. A. Status post coronary artery bypass x4 in 2008. B. Stable, asymptomatic. 5. Hypertension. A. Not adequately controlled as of 02/28/2018. B. Improved as of 03/02/2018. 6. Generalized osteoarthritis, particularly of the right knee. A. 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 B. Fall resulting in opening of the incision and near displacement of the TKR requiring repeat opera tion with washout and repair of the collateral ligaments on 01/19/2016. C. 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 D. Completed 6-week course of IV ceftriaxone. E. Status post revision right total knee arthroplasty on 08/06/2016. F. Chronic suppressive antibiotics with cephalexin 500 mg b.i.d. 7. Neuropathy of the lower extremity. 8. Chronic kidney disease, stage 3. 9. Gastroesophageal reflux disease. 10. Depression. PLAN: Overall, the patient continues to improve. Will continue physical therapy. Continue present medicines.
[2018-03-02] MEDS: Fluticasone Propionate Nasal Spray 16 gm Bottle NASAL SCH (20:38)
[2018-03-02] MEDS: Melatonin 3 MG TAB PO SCH (20:39)
[2018-03-02] MEDS: Clopidogrel Bisulfate 75 MG TAB PO SCH (20:39)
[2018-03-02] MEDS: Tamsulosin HCl 0.4 MG CAP PO SCH (20:39)
[2018-03-02] MEDS: Famotidine 20 MG TAB PO SCH (20:39)
[2018-03-02] MEDS: Senokot 8.6 MG TAB PO SCH (20:39)
[2018-03-02] MEDS: LIVALO 4 MG PO SCH (20:40)
[2018-03-03] MEDS: Albuterol Sulfate 2.5 mg/3 ml Neb NEB SCH ×4 (06:07→18:10)
[2018-03-03] MEDS: Carvedilol 3.125 MG TAB PO SCH ×2 (08:45→17:11)
[2018-03-03] MEDS: Acetaminophen 325 MG TAB PO PRN (08:45)
[2018-03-03] MEDS: Aspirin 81 mg Enteric Coated Tablet PO SCH (08:45)
[2018-03-03] MEDS: Lisinopril 10 MG TAB PO SCH (08:45)
[2018-03-03] MEDS: Venlafaxine HCl XR 150 MG CAP PO SCH (08:45)
[2018-03-03] MEDS: Loratadine 10 MG TAB PO SCH (08:45)
[2018-03-03] MEDS: Docusate 100 MG CAP PO SCH ×2 (08:46→20:31)
[2018-03-03] MEDS: Enoxaparin Sodium 40 MG/0.4 ML SYRINGE SC SCH (08:46)
[2018-03-03] MEDS: Cephalexin 500 MG CAP PO SCH ×2 (08:47→20:31)
[2018-03-03] MEDS: Ezetimibe 10 MG TAB PO SCH (08:48)
[2018-03-03] MEDS: ALOE VERA CAPSULE PO SCH ×2 (08:48→20:31)
[2018-03-03] MEDS: HYDROcodone/Acetaminophen 5/325 mg Tablet PO PRN (14:02)
[2018-03-03] MEDS: Tamsulosin HCl 0.4 MG CAP PO SCH (20:31)
[2018-03-03] MEDS: Senokot 8.6 MG TAB PO SCH (20:31)
[2018-03-03] MEDS: Famotidine 20 MG TAB PO SCH (20:31)
[2018-03-03] MEDS: Clopidogrel Bisulfate 75 MG TAB PO SCH (20:31)
[2018-03-03] MEDS: Fluticasone Propionate Nasal Spray 16 gm Bottle NASAL SCH (20:31)
[2018-03-03] MEDS: LIVALO 4 MG PO SCH (20:31)
[2018-03-03] MEDS: Melatonin 3 MG TAB PO SCH (20:31)
[2018-03-04] MEDS: Albuterol Sulfate 2.5 mg/3 ml Neb NEB SCH ×4 (06:10→18:04)
[2018-03-04] MEDS: Enoxaparin Sodium 40 MG/0.4 ML SYRINGE SC SCH (08:23)
[2018-03-04] MEDS: Aspirin 81 mg Enteric Coated Tablet PO SCH (08:24)
[2018-03-04] MEDS: Acetaminophen 325 MG TAB PO PRN ×2 (08:24→20:39)
[2018-03-04] MEDS: Ezetimibe 10 MG TAB PO SCH (08:24)
[2018-03-04] MEDS: Lisinopril 10 MG TAB PO SCH (08:24)
[2018-03-04] MEDS: Venlafaxine HCl XR 150 MG CAP PO SCH (08:24)
[2018-03-04] MEDS: Docusate 100 MG CAP PO SCH ×2 (08:24→20:33)
[2018-03-04] MEDS: ALOE VERA CAPSULE PO SCH ×2 (08:24→20:34)
[2018-03-04] MEDS: Carvedilol 3.125 MG TAB PO SCH ×2 (08:24→16:44)
[2018-03-04] MEDS: Cephalexin 500 MG CAP PO SCH ×2 (08:24→20:32)
[2018-03-04] MEDS: Loratadine 10 MG TAB PO SCH (08:24)
--- NOTE | 2018-03-04 09:34 | PRG ---
DATE OF SERVICE: 03/04/2018 SUBJECTIVE: The patient said he is doing better with his therapy. He is walking further, but still having pain and trouble with transfers and still requiring supervision or standby assistance. He has had a little confusion, but this is improving. His pain is being managed with Tylenol and occasiona l 1 hydrocodone/acetaminophen 5/325. He has had his urinary incontinence, maybe a little more than w hat he has at home. OBJECTIVE: The patient is lying in bed, is alert, recognizes me, was talkative and looked comfortabl e. His vital signs show a temperature of 98.2, pulse 82, respirations 22, O2 sat 91% on room air, bl ood pressure 174/92, earlier 135/80. Lungs were clear. Heart, regular rate. Back, there is still br uising over the upper left back scapular area, but this is less. Extremities, no edema. ASSESSMENT: 1. Closed mildly displaced fracture of the left posterior third, fourth, fifth and sixth ribs. A. Secondary to a fall to the ground from a porch step on 02/23/2018. B. No evidence of pneumothorax. C. Complicated by mild atelectasis of the right base, clinically resolved as of 03/02/2018. D. Pain much better controlled. E. Resolving as of 03/04/2018. 2. Generalized weakness. A. Complicated by gait abnormality stabilized with a cane. B. Marked decline in functional capability after a fall on 02/23/2018, resulting the multiple rib fr actures. Presently requiring assistance with his ADLs. C. Continued improvement. Tolerating sitting up in a chair. Walking much further with the use of h is walker. Still requires some help with transfers as of 03/04/2018. 3. Mild hypoxemia. A. Secondary to the multiple rib fractures and atelectasis of the right base. B. Resolved as of 03/04/2018. 4. Coronary artery disease. A. Status post coronary artery bypass x4 in 2008. B. Stable, asymptomatic. 5. Hypertension. A. Controlled as of 03/04/2018. 6. Generalized osteoarthritis, particularly of the right knee. A. 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 B. Fall resulting in opening of the incision and near displacement of the TKR requiring repeat opera tion with washout and repair of the collateral ligaments on 01/19/2016. C. 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 D. Completed 6-week course of IV ceftriaxone. E. Status post revision right total knee arthroplasty on 08/06/2016. F. Chronic suppressive antibiotics with cephalexin 500 mg b.i.d. 7. Neuropathy of the lower extremity. 8. Chronic kidney disease, stage 3. 9. Gastroesophageal reflux disease. 10. Depression. 11. Some confusion. A. Improving. Suspect this has been related to the pain medication, but this pain medicine needs is markedly diminished as of 03/04/2018 and the confusion is improving. 12. Urinary incontinence. PLAN: Overall, patient is better, is primarily try to manage his pain with Tylenol and an occasional 1 hydrocodone 5/325. He had a little confusion, it is improving. The family had talked about selene de leon him home tomorrow. I think the patient would benefit by a little longer staying to allow for impro vement on his transfer which will make things much easier at home. As he transfers easier, I think i t will be easier for him to make it to control his urge incontinence and this also will help alleviat e some of the care needs at home. I will probably allow patient to go home on a pass on Friday, if things go well, then probably early next week should be able to discharge.
[2018-03-04] MEDS: Melatonin 3 MG TAB PO SCH (20:30)
[2018-03-04] MEDS: Clopidogrel Bisulfate 75 MG TAB PO SCH (20:30)
[2018-03-04] MEDS: Famotidine 20 MG TAB PO SCH (20:30)
[2018-03-04] MEDS: Senokot 8.6 MG TAB PO SCH (20:32)
[2018-03-04] MEDS: Tamsulosin HCl 0.4 MG CAP PO SCH (20:33)
[2018-03-04] MEDS: LIVALO 4 MG PO SCH (20:33)
[2018-03-04] MEDS: Fluticasone Propionate Nasal Spray 16 gm Bottle NASAL SCH (20:34)
[2018-03-05] MEDS: Albuterol Sulfate 2.5 mg/3 ml Neb NEB SCH ×4 (06:01→18:01)
[2018-03-05] MEDS: Carvedilol 3.125 MG TAB PO SCH ×2 (08:49→16:33)
[2018-03-05] MEDS: Ezetimibe 10 MG TAB PO SCH (08:50)
[2018-03-05] MEDS: Loratadine 10 MG TAB PO SCH (08:50)
[2018-03-05] MEDS: Aspirin 81 mg Enteric Coated Tablet PO SCH (08:50)
[2018-03-05] MEDS: Cephalexin 500 MG CAP PO SCH ×2 (08:51→21:03)
[2018-03-05] MEDS: Lisinopril 10 MG TAB PO SCH (08:51)
[2018-03-05] MEDS: Enoxaparin Sodium 40 MG/0.4 ML SYRINGE SC SCH (08:51)
[2018-03-05] MEDS: Docusate 100 MG CAP PO SCH ×2 (08:52→21:04)
[2018-03-05] MEDS: Venlafaxine HCl XR 150 MG CAP PO SCH (08:52)
[2018-03-05] MEDS: Acetaminophen 325 MG TAB PO PRN ×2 (08:52→18:00)
[2018-03-05] MEDS: ALOE VERA CAPSULE PO SCH ×2 (08:53→21:10)
[2018-03-05] MEDS: Melatonin 3 MG TAB PO SCH (21:04)
[2018-03-05] MEDS: Famotidine 20 MG TAB PO SCH (21:04)
[2018-03-05] MEDS: Clopidogrel Bisulfate 75 MG TAB PO SCH (21:04)
[2018-03-05] MEDS: Fluticasone Propionate Nasal Spray 16 gm Bottle NASAL SCH (21:05)
[2018-03-05] MEDS: LIVALO 4 MG PO SCH (21:11)
[2018-03-05] MEDS: Senokot 8.6 MG TAB PO SCH (21:12)
[2018-03-05] MEDS: Tamsulosin HCl 0.4 MG CAP PO SCH (21:12)
[2018-03-06] MEDS: Albuterol Sulfate 2.5 mg/3 ml Neb NEB SCH ×4 (06:14→18:07)
[2018-03-06] MEDS: ALOE VERA CAPSULE PO SCH ×2 (08:44→20:53)
[2018-03-06] MEDS: Enoxaparin Sodium 40 MG/0.4 ML SYRINGE SC SCH (08:46)
[2018-03-06] MEDS: Carvedilol 3.125 MG TAB PO SCH ×2 (08:47→16:45)
[2018-03-06] MEDS: Aspirin 81 mg Enteric Coated Tablet PO SCH (08:47)
[2018-03-06] MEDS: Venlafaxine HCl XR 150 MG CAP PO SCH (08:47)
[2018-03-06] MEDS: Lisinopril 10 MG TAB PO SCH (08:47)
[2018-03-06] MEDS: Cephalexin 500 MG CAP PO SCH ×2 (08:48→20:49)
[2018-03-06] MEDS: Ezetimibe 10 MG TAB PO SCH (08:48)
[2018-03-06] MEDS: Loratadine 10 MG TAB PO SCH (08:48)
[2018-03-06] MEDS: Docusate 100 MG CAP PO SCH ×2 (08:48→20:48)
[2018-03-06] MEDS ORDERED: Albuterol Sulfate 2.5 mg/3 ml Neb ONE (11:44)
[2018-03-06] MEDS: Senokot 8.6 MG TAB PO SCH (20:48)
[2018-03-06] MEDS: Tamsulosin HCl 0.4 MG CAP PO SCH (20:49)
[2018-03-06] MEDS: Melatonin 3 MG TAB PO SCH (20:49)
[2018-03-06] MEDS: Famotidine 20 MG TAB PO SCH (20:49)
[2018-03-06] MEDS: Fluticasone Propionate Nasal Spray 16 gm Bottle NASAL SCH (20:50)
[2018-03-06] MEDS: Clopidogrel Bisulfate 75 MG TAB PO SCH (20:50)
[2018-03-06] MEDS: LIVALO 4 MG PO SCH (20:52)
[2018-03-06] MEDS: Acetaminophen 325 MG TAB PO PRN (20:55)
[2018-03-07] MEDS: Albuterol Sulfate 2.5 mg/3 ml Neb NEB SCH ×4 (05:43→18:13)
[2018-03-07] MEDS: Ezetimibe 10 MG TAB PO SCH (08:39)
[2018-03-07] MEDS: Docusate 100 MG CAP PO SCH ×2 (08:40→20:38)
[2018-03-07] MEDS: Enoxaparin Sodium 40 MG/0.4 ML SYRINGE SC SCH (08:40)
[2018-03-07] MEDS: Lisinopril 10 MG TAB PO SCH (08:40)
[2018-03-07] MEDS: Aspirin 81 mg Enteric Coated Tablet PO SCH (08:40)
[2018-03-07] MEDS: Cephalexin 500 MG CAP PO SCH ×2 (08:40→20:38)
[2018-03-07] MEDS: Loratadine 10 MG TAB PO SCH (08:40)
[2018-03-07] MEDS: Carvedilol 3.125 MG TAB PO SCH ×2 (08:41→17:05)
[2018-03-07] MEDS: ALOE VERA CAPSULE PO SCH ×2 (08:49→20:40)
[2018-03-07] MEDS: Tamsulosin HCl 0.4 MG CAP PO SCH (20:38)
[2018-03-07] MEDS: Fluticasone Propionate Nasal Spray 16 gm Bottle NASAL SCH (20:39)
[2018-03-07] MEDS: Famotidine 20 MG TAB PO SCH (20:39)
[2018-03-07] MEDS: Senokot 8.6 MG TAB PO SCH (20:39)
[2018-03-07] MEDS: Clopidogrel Bisulfate 75 MG TAB PO SCH (20:39)
[2018-03-07] MEDS: Melatonin 3 MG TAB PO SCH (20:39)
[2018-03-07] MEDS: LIVALO 4 MG PO SCH (20:40)
[2018-03-07] MEDS: Acetaminophen 325 MG TAB PO PRN (20:40)
[2018-03-08] MEDS: Albuterol Sulfate 2.5 mg/3 ml Neb NEB SCH ×4 (06:17→18:18)
[2018-03-08] MEDS: Ezetimibe 10 MG TAB PO SCH (08:32)
[2018-03-08] MEDS: Lisinopril 10 MG TAB PO SCH (08:32)
[2018-03-08] MEDS: Acetaminophen 325 MG TAB PO PRN ×2 (08:32→15:38)
[2018-03-08] MEDS: Loratadine 10 MG TAB PO SCH (08:33)
[2018-03-08] MEDS: Docusate 100 MG CAP PO SCH ×2 (08:33→20:52)
[2018-03-08] MEDS: Cephalexin 500 MG CAP PO SCH ×2 (08:33→20:52)
[2018-03-08] MEDS: Carvedilol 3.125 MG TAB PO SCH ×2 (08:33→17:14)
[2018-03-08] MEDS: Venlafaxine HCl XR 150 MG CAP PO SCH (08:33)
[2018-03-08] MEDS: Aspirin 81 mg Enteric Coated Tablet PO SCH (08:33)
[2018-03-08] MEDS: Enoxaparin Sodium 40 MG/0.4 ML SYRINGE SC SCH (08:34)
[2018-03-08] MEDS: ALOE VERA CAPSULE PO SCH ×2 (08:34→20:53)
--- NOTE | 2018-03-08 13:51 | PRG ---
DATE OF SERVICE: 03/06/2018 SUBJECTIVE: The patient says he is feeling better. He says that he still has pain in the back, part icularly if he sneezes or coughs, but overall he thinks it is a little better. He is getting up a li ttle easier and able to walk better. The patient has not had any more of the hydrocodone last dose w as 3 days ago. He is trying to get Tylenol. He said a little bit of confusion seems to all be clearing. OBJECTIVE: GENERAL: The patient is lying in bed, is moving in bed much easier. VITAL SIGNS: Show a temperature of 98.3, pulse 94, blood pressure 169/93, respirations 22, O2 sat 95 % on room air, 90% this morning, this improves once he is up and breathing deeper. LUNGS: Clear. HEART: Regular rate. He still has bruising over the left upper back, but this is slowly diminishing . EXTREMITIES: No edema. The patient is doing better with his physical therapy, walking further and his transfers are improvin g, where he is (02:25) with standby assistance. ASSESSMENT: 1. Closed mildly displaced fracture of the left posterior third, fourth, fifth and sixth ribs. A. Secondary to a fall to the ground from a porch step on 02/23/2018. B. No evidence of pneumothorax. C. Complicated by mild atelectasis of the right base, clinically resolved as of 03/02/2018. D. Pain controlled with Tylenol as of 03/06/2018. 2. Generalized weakness. A. Complicated by gait abnormality stabilized with a cane. B. Marked decline in functional capability after a fall on 02/23/2018, resulting the multiple rib fr actures. Presently requiring assistance with his ADLs. C. Marked improvement where he is walking up to 200 feet and transferring with standby assistance as of 03/06/2018. 3. Mild hypoxemia. A. Secondary to the multiple rib fractures and atelectasis of the right base. B. Resolved as of 03/04/2018. 4. Coronary artery disease. A. Status post coronary artery bypass x4 in 2008. B. Stable, asymptomatic. 5. Hypertension. A. Controlled as of 03/06/2018. 6. Generalized osteoarthritis, particularly of the right knee. A. 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 B. Fall resulting in opening of the incision and near displacement of the TKR requiring repeat opera tion with washout and repair of the collateral ligaments on 01/19/2016. C. 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 D. Completed 6-week course of IV ceftriaxone. E. Status post revision right total knee arthroplasty on 08/06/2016. F. Chronic suppressive antibiotics with cephalexin 500 mg b.i.d. 7. Neuropathy of the lower extremity. 8. Chronic kidney disease, stage 3. 9. Gastroesophageal reflux disease. 10. Depression. 11. Some confusion. A. Improving. Suspect this has been related to the pain medication, but this pain medicine needs is markedly diminished as of 03/04/2018 and the confusion is improving. 12. Urinary incontinence. A. Improved as of 03/06/2018. PLAN: Overall, patient looks better. His pain seems to be adequately controlled with Tylenol. The episodes where he was a little bit more confused or forgetful all resolving. Tomorrow, we will plan on let him go on pass home if this works well, probably early next week, plan on discharge.
[2018-03-08] MEDS: Clopidogrel Bisulfate 75 MG TAB PO SCH (20:52)
[2018-03-08] MEDS: Tamsulosin HCl 0.4 MG CAP PO SCH (20:52)
[2018-03-08] MEDS: Melatonin 3 MG TAB PO SCH (20:52)
[2018-03-08] MEDS: Senokot 8.6 MG TAB PO SCH (20:52)
[2018-03-08] MEDS: Famotidine 20 MG TAB PO SCH (20:52)
[2018-03-08] MEDS: LIVALO 4 MG PO SCH (20:53)
[2018-03-08] MEDS: Fluticasone Propionate Nasal Spray 16 gm Bottle NASAL SCH (20:53)
[2018-03-09] MEDS: Albuterol Sulfate 2.5 mg/3 ml Neb NEB SCH ×2 (05:47→11:29)
[2018-03-09] MEDS: Acetaminophen 325 MG TAB PO PRN ×2 (05:49→08:36)
[2018-03-09 06:52] VITALS: TEMP 99.5
[2018-03-09] MEDS: Venlafaxine HCl XR 150 MG CAP PO SCH (08:32)
[2018-03-09] MEDS: Ezetimibe 10 MG TAB PO SCH (08:32)
[2018-03-09] MEDS: Carvedilol 3.125 MG TAB PO SCH (08:32)
[2018-03-09] MEDS: Cephalexin 500 MG CAP PO SCH (08:33)
[2018-03-09] MEDS: ALOE VERA CAPSULE PO SCH (08:33)
[2018-03-09] MEDS: Docusate 100 MG CAP PO SCH (08:33)
[2018-03-09] MEDS: Enoxaparin Sodium 40 MG/0.4 ML SYRINGE SC SCH (08:33)
[2018-03-09] MEDS: Loratadine 10 MG TAB PO SCH (08:33)
[2018-03-09] MEDS: Lisinopril 10 MG TAB PO SCH (08:33)
[2018-03-09 08:34] VITALS: BP 169/93
[2018-03-09] MEDS: Aspirin 81 mg Enteric Coated Tablet PO SCH (08:34)
--- NOTE | 2018-03-09 10:48 | DIS ---
FINAL DIAGNOSES: 1. Closed mildly displaced fracture of the left posterior third, fourth, fifth and sixth ribs. A. Secondary to a fall to the ground from a porch step on 02/23/2018. B. No evidence of pneumothorax. C. Complicated by mild atelectasis of the right base, clinically resolved as of 03/02/2018. D. Pain controlled with Tylenol as of 03/09/2018. 2. Generalized weakness. A. Complicated by gait abnormality stabilized with a cane. B. Marked decline in functional capability after a fall on 02/23/2018, resulting the multiple rib fr actures. Presently requiring assistance with his ADLs. C. Walking up to 200 feet with his rolling walker and transferring just was standby assistance as of 03/09/2018. 3. Mild hypoxemia. A. Secondary to the multiple rib fractures and atelectasis of the right base. B. Resolved as of 03/04/2018. 4. Coronary artery disease. A. Status post coronary artery bypass x4 in 2008. B. Stable, asymptomatic. 5. Hypertension. A. Controlled as of 03/06/2018. 6. Generalized osteoarthritis, particularly of the right knee. A. 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 B. Fall resulting in opening of the incision and near displacement of the TKR requiring repeat opera tion with washout and repair of the collateral ligaments on 01/19/2016. C. 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 D. Completed 6-week course of IV ceftriaxone. E. Status post revision right total knee arthroplasty on 08/06/2016. F. Chronic suppressive antibiotics with cephalexin 500 mg b.i.d. 7. Neuropathy of the lower extremity. 8. Chronic kidney disease, stage 3. 9. Gastroesophageal reflux disease. 10. Depression. 11. Some confusion. A. Improving. Suspect this has been related to the pain medication, but this pain medicine needs is markedly diminished as of 03/04/2018 and the confusion is improving. B. Resolved as of 03/09/2018. 12. Urinary incontinence. A. Resolved as of 03/09/2018. REASON FOR ADMISSION: The patient is an 82-year-old white male with a history of hypertension, coron terri heart disease for which he is asymptomatic, chronic kidney disease, severe generalized osteoarthr itis, he has undergone right total knee replacement that was complicated by a fall with reopening of the incision requiring a washout and repair of ligaments. He then developed an infection in that an d required removal of hardware and long-term IV antibiotics and then a repeat knee arthroplasty. He has done well since then, but has required chronic suppressive antibiotics with cephalexin. The michelle ent presented to the emergency room on 02/26/2018. He had fallen coming down some porch steps on 05/2018. The patient said there were two steps up to the porch and he was on coming down and fell fr om the 1st step. He must have hit on that left upper back. There was no loss of consciousness. He had immediate pain in that area of the left upper back. He tried to put up with it at home, but it j ust got worse and worse where his pain was not manageable and he was unable to take care of himself. In the emergency room he was evaluated and a CT scan showed fracture of the left posterior 3rd, 4th, 5th and 6th ribs with mild displacement. There was no evidence of pneumothorax. He had some mild a telectasis of the right base and mild hypoxemia. The patient was admitted. The patient in the emerg ency room he was given a dose of morphine, hydrocodone and was admitted to the hospital for pain cont rol, mild hypoxemia and atelectasis. HOSPITAL COURSE: The patient was admitted to a hospital room. He was placed on supplemental O2. He had a bronchitis for which he was placed on antibiotics, he was placed on neb treatments and incenti ve spirometry and was ordered the hydrocodone 5/325 1-2 q.6h. The patient became a little confused. It was felt to be from the morphine. Morphine had been stopped and the hydrocodone dosing was decrea sed. Overall, he continued to improve, but was extremely sore. He was moved to extended care on 09/2018. His pain gradually was improved. The confusion improved, but still was a little present. He was able to tolerate and manage the pain with Tylenol 325 mg 2 every 4 hours and the hydrocodone w as stopped. Once the hydrocodone was stopped the confusion seemed to get better and better and he re turned to his baseline. He had also had some incontinence, but this seemed improve as his mobility i mproved. His lungs remained clear. The atelectasis and the hypoxemia resolved. His O2 saturation r emained in the mid 90s on room air. The patient made excellent progress with his physical therapy wh ere he was walking over 200 feet twice a day with a rolling walker and just standby assistance and he was transferring with standby assistance. The patient went home on a pass for a few hours on 2017 and did very well with this. On 03/09/2018 he was doing well and felt like he could now manage at home. His son lives next door and he said he will be looking in on him and assisting him and he f eels like he will be fine there. He is able to manage his pain strictly with the Tylenol. The atele ctasis had resolved, the hypoxemia resolved. The acute bronchitis, resolved. His pain was well cont rolled. He was ambulating independently with a walker and transferring independently. DIET: Regular diet. ACTIVITIES: Ambulate with the use of a rolling walker. MEDICATIONS: Acetaminophen 325 mg 2 every 4 hours as needed, albuterol inhaler (Ventolin 2 inhalatio ns q.i.d. and every 4 hours as needed) Aloe vera capsule 120 mg b.i.d., aspirin 81 mg daily, carvedil ol 3.125 mg b.i.d., cephalexin 500 mg b.i.d., vitamin D3 5000 units daily, Plavix 75 mg daily, docusa te sodium 100 mg b.i.d., Zetia 10 mg daily, famotidine 20 mg at bedtime, Flonase 2 inhalations each n ostrum daily, lisinopril 10 mg daily, Livalo 4 mg daily, loratadine 10 mg daily as needed, meclizine 25 mg b.i.d. p.r.n. vertigo, melatonin 3 mg at bedtime, pantoprazole 40 mg q.a.m., Senokot-S 1 at be dtime, tamsulosin 0.4 mg at bedtime, venlafaxine XR 150 mg daily. FOLLOW UP: The patient will be seen in followup in my office in 2 weeks.
== END 2018-03-09 12:30 | disposition home or self-care (01) | DRG 560 ==
LOC: MADMS 10:59
PROVIDERS: ADMIT Family Medicine; ATTEND Family Medicine
DX: S22.42XD Multiple fractures of ribs, left side, subsequent encounter for fracture with routine healing (principal); J98.11 Atelectasis; R26.9 Unspecified abnormalities of gait and mobility; R09.02 Hypoxemia; I25.10 Atherosclerotic heart disease of native coronary artery without angina pectoris; Z95.1 Presence of aortocoronary bypass graft; M17.11 Unilateral primary osteoarthritis, right knee; Z96.651 Presence of right artificial knee joint; G62.9 Polyneuropathy, unspecified; K21.9 Gastro-esophageal reflux disease without esophagitis; F32.9 Major depressive disorder, single episode, unspecified; R41.0 Disorientation, unspecified; R32 Unspecified urinary incontinence; I12.9 Hypertensive chronic kidney disease with stage 1 through stage 4 chronic kidney disease, or unspecified chronic kidney disease; N18.3 Chronic kidney disease, stage 3 (moderate); N28.9 Disorder of kidney and ureter, unspecified; E11.22 Type 2 diabetes mellitus with diabetic chronic kidney disease; G47.33 Obstructive sleep apnea (adult) (pediatric); Z72.0 Tobacco use
CPT/HCPCS: 94640; G8987-GO-CK; G8988-GO-CH; J1650; J7611; Q0162

== ENCOUNTER 2018-04-09 09:46 | Emergency (ER) | payer MEDICARE ==
[~2018-04-09 09:46] MED LIST changes: -Iopamidol 370 76% 100 ML VIAL ONE
[2018-04-09] MEDS ORDERED: Azithromycin 500 MG VIAL ONE (10:14)
[2018-04-09] MEDS ORDERED: Ibuprofen 800 MG TAB ONE (10:14)
[2018-04-09] MEDS ORDERED: Acetaminophen 500 MG TAB ONE (10:15)
[2018-04-09 10:39] LABS: Band 7 % (5-11); Hemoglobin 15.5 g/dL (14.0-18.0); Lymphocytes 6 % (21-51); MDiff Complete? YES; Mean Corpuscular HGB CONC 30.3 g/dL (32.0-36.0); Mean Corpuscular Hemoglobin 26.5 pg (27.0-31.0); Mean Corpuscular Volume 87.4 fL (78.0-98.0); Mean Platelet Volume 7.2 fL (7.4-10.4); Metamyelocyte 1 % (0-0); Monocytes 3 % (0-10); Neutrophil 83 % (42-75); Platelet Count 176 thou/uL (130-400); RBC Distribution Width 14.4 % (11.5-14.5); Red Blood Cell (RBC) Count 5.84 mill/uL (4.70-6.10); White Blood Cell (WBC) Count 14.4 thou/uL (4.8-10.8)
[2018-04-09 10:41] LABS: ALT (SGPT) 22 U/L (8-55); AST (SGOT) 24 U/L (5-34); Albumin 3.6 g/dL (3.4-4.8); Alkaline Phosphatase 85 U/L (40-150); Anion Gap 18 mmol/L (10-20); BUN (Urea Nitrogen) 21 mg/dL (8.4-25.7); Bilirubin, Total 0.6 mg/dL (0.2-1.2); Calc. Creatinine Clearance 0 mL/min (70-130); Carbon Dioxide 26 mmol/L (23-31); Chloride 102 mmol/L (98-107); Estimated GFR-MDRD 43; Globulin 3.3 g/dL (2.4-3.5); Glucose 123 mg/dL (83-110); Potassium 3.5 mmol/L (3.5-5.1); Protein, Total 6.9 g/dL (5.8-8.1); Sodium 142 mmol/L (136-145)
[2018-04-09 10:43] LABS: Bilirubin Negative (Negative); Blood, Urine Large (Negative); Clarity Hazy (Clear); Glucose, Urine (Dipstick) Negative (Negative); Leukocyte Negative (Negative); Nitrite Negative (Negative); Protein, Urine (Dipstick) 100 mg/dL (Neg-Trace); Specific Gravity, Urine 1.025 (1.005-1.030); Urobilinogen 0.2 mg/dL (0.2-1.0); pH, Urine 5.5 (5.0-9.0)
[2018-04-09 10:44] LABS: Bacteria/HPF Rare-Few HPF (None Seen); RBC/HPF GREATER THAN 50-TNTC HPF (0-3); Squamous Epithelial 0-3 HPF (0-3); WBC/HPF None Seen HPF (0-3)
[2018-04-09 10:47] LABS: CKMB 1.1 ng/mL (0-6.6); Troponin I 0.022 ng/mL (< 0.028)
--- NOTE | 2018-04-09 10:59 | RAD ---
CHEST ONE VIEW: History: Dyspnea. Comparison: 02-25-18 FINDINGS: Cardiac silhouette magnified by projection. Pulmonary vasculature upper limits of normal. Dense conso lidation at the lateral anterior lung base with some component of atelectasis. Mediastinum is midline with post-operative changes. Post-operative changes left shoulder. IMPRESSION: Dense consolidation lateral segment right middle lobe. Close radiographic follow up after medical micah atment is suggested. CT chest could be considered also. POS: [facility]
[2018-04-09] MEDS ORDERED: Cefepime 1 GM VIAL ONE (11:28)
== END 2018-04-09 12:35 | disposition short-term general hospital (02) ==
LOC: MADERS 09:46
DX: A41.9 Sepsis, unspecified organism (principal); J18.9 Pneumonia, unspecified organism; I10 Essential (primary) hypertension; I25.10 Atherosclerotic heart disease of native coronary artery without angina pectoris; F17.220 Nicotine dependence, chewing tobacco, uncomplicated
CPT/HCPCS: 36415; 71045; 80053; 81003; 81015; 82553; 83605; 83880; 84484; 85025; 87040; 87086; 93005; 94760; 96365; 96367; J0456; J0692; J7050; J7620

== ENCOUNTER 2018-05-01 11:20 | Emergency (ER) | payer MEDICARE ==
[2018-05-01] MEDS ORDERED: HYDROcodone/Acetaminophen 10/325 mg Tablet ONE (11:55)
[2018-05-01] MEDS ORDERED: Ibuprofen 600 MG TAB ONE (12:27)
--- NOTE | 2018-05-01 12:30 | RAD ---
THREE VIEWS OF THE LEFT WRIST: DATE: 05/01/18. HISTORY: Fall, trauma, pain. FINDINGS: There is prominent degenerative change of the 1st carpometacarpal joint and the distal carpal row lat erally. There is no widening of the scapulolunate interval. There is no displaced fracture or evide nce of dislocation noted. IMPRESSION: Degenerative changes. No displaced fracture or dislocation. If symptoms persist, followup in 7-10 d ays with dedicated scaphoid views advised. POS: [facility]
== END 2018-05-01 12:30 | disposition home or self-care (01) ==
LOC: MADERS 11:20
DX: S63.502A Unspecified sprain of left wrist, initial encounter (principal); W18.30XA Fall on same level, unspecified, initial encounter

== ENCOUNTER 2018-12-07 14:50 | Outpatient (CLI) | payer MEDICARE ==
--- NOTE | 2018-12-07 16:20 | RAD ---
CHEST TWO VIEWS: 12/07/2018 HISTORY: Follow up atelectasis. COMPARISON: 02/03/2018 FINDINGS: Two views of the chest demonstrate sternotomy wires seen. The lungs are well aerated. No evidence of active intrathoracic disease is seen. No evidence of eff usions, pneumonia, or pneumothorax is seen. When compared to the previous chest radiograph from 04/10/2018, the right lung base is now well aerat ed. IMPRESSION: Unremarkable two views chest. No evidence of acute intrathoracic abnormality is seen. POS: [facility]
== END 2018-12-07 14:51 | disposition home or self-care (01) ==
LOC: MADRAD 14:50
PROVIDERS: ATTEND Family Medicine
DX: J98.11 Atelectasis (principal)
CPT/HCPCS: 71046

== ENCOUNTER 2019-04-14 09:24 | Inpatient (IN) | payer MEDICARE ==
[2019-04-14] MEDS ORDERED: Meclizine HCl 25 MG TAB PO PRN (17:24)
[2019-04-14] MEDS: traMADol HCl 50 MG TAB PO PRN (19:53)
[2019-04-14] MEDS: Senokot S 8.6-50 MG TAB PO SCH (20:33)
[2019-04-14] MEDS: Apixaban 5 MG TAB PO SCH (20:33)
[2019-04-14] MEDS: Melatonin 3 MG TAB PO SCH (20:33)
[2019-04-14] MEDS: Tamsulosin HCl 0.4 MG CAP PO SCH (20:33)
[2019-04-14] MEDS: Cephalexin 500 MG CAP PO SCH (20:33)
[2019-04-14] MEDS: Fluticasone Propionate Nasal Spray 16 gm Bottle NASAL SCH (20:34)
[2019-04-14] MEDS: PITAVASTATIN CALCIUM 4 MG PO SCH (20:34)
[2019-04-15 05:22] LABS: ALT (SGPT) Less than 7 U/L (8-55); AST (SGOT) 22 U/L (5-34); Albumin 3.1 g/dL (3.4-4.8); Alkaline Phosphatase 39 U/L (40-150); Anion Gap 11 mmol/L (10-20); BUN (Urea Nitrogen) 15 mg/dL (8.4-25.7); Bilirubin, Total 0.4 mg/dL (0.2-1.2); Calc. Creatinine Clearance 48 mL/min (70-130); Calcium 8.5 mg/dL (7.8-10.44); Carbon Dioxide 31 mmol/L (23-31); Cardiac Risk 2.8 (Less than 4.5); Chloride 104 mmol/L (98-107); Cholesterol 135 mg/dl (< 200 Desired); Estimated GFR-MDRD 43; Globulin 2.7 g/dL (2.4-3.5); Glucose 91 mg/dL (83-110); HDL Cholesterol 49 mg/dL (>60 Neg Risk); LDL Cholesterol, Calculated 66 mg/dL; Potassium 3.8 mmol/L (3.5-5.1); Protein, Total 5.8 g/dL (5.8-8.1); Sodium 142 mmol/L (136-145); Triglycerides 100 mg/dL (Less than 150)
[2019-04-15 05:32] LABS: Eosinophils 1 % (0-10); Hemoglobin 10.1 g/dL (14.0-18.0); Hypochromia MODERATE=16-30 cells (100X) (0-5/hpf); Lymphocytes 16 % (21-51); MDiff Complete? YES; Mean Corpuscular HGB CONC 31.1 g/dL (32.0-36.0); Mean Corpuscular Hemoglobin 27.3 pg (27.0-31.0); Mean Corpuscular Volume 87.7 fL (78.0-98.0); Mean Platelet Volume 6.3 fL (7.4-10.4); Monocytes 11 % (0-10); Neutrophil 65 % (42-75); Platelet Count 141 thou/uL (130-400); Platelet Morphology Comment Appears Adequate; RBC Distribution Width 16.2 % (11.5-14.5); RBC Morphology Abnormal; Reactive Lymphocytes 7 % (0-10); Red Blood Cell (RBC) Count 3.72 mill/uL (4.70-6.10); White Blood Cell (WBC) Count 6.9 thou/uL (4.8-10.8)
[2019-04-15] MEDS: Cephalexin 500 MG CAP PO SCH ×2 (07:54→21:48)
[2019-04-15] MEDS: Ezetimibe 10 MG TAB PO SCH (07:54)
[2019-04-15] MEDS: Venlafaxine HCl XR 150 MG CAP PO SCH (07:54)
[2019-04-15] MEDS: Polyethylene Glycol 3350 17 GM Packet PO SCH (07:54)
[2019-04-15] MEDS: Carvedilol 6.25 MG TAB PO SCH ×2 (07:55→17:30)
[2019-04-15] MEDS: Aspirin Chewable 81 MG TAB PO SCH (07:55)
[2019-04-15] MEDS: Apixaban 5 MG TAB PO SCH ×2 (07:55→21:48)
[2019-04-15] MEDS: Multivit, Therapeutic 1 TAB PO SCH (07:55)
[2019-04-15] MEDS: Furosemide 20 MG TAB PO SCH (07:55)
[2019-04-15] MEDS: Amlodipine 5 MG TAB PO SCH (07:55)
[2019-04-15] MEDS: Senokot S 8.6-50 MG TAB PO SCH ×2 (07:56→21:50)
--- NOTE | 2019-04-15 08:15 | HP ---
CHIEF COMPLAINT: Weakness following a fracture and surgery on his right ankle. HISTORY OF PRESENT ILLNESS: The patient is an 84-year-old white male, who has a history of hypertension, coronary artery disease, for which he is asymptomatic, chronic kidney disease, and generalized osteoarthritis. He has undergone right total knee replacement that was complicated by a fall requiring repair and washout after it burst open. This later became infected and required removal of hardware and long-term IV antibiotics and then eventually underwent a right total knee arthroplasty again on 05/09/2016 and completed 6 weeks of IV ceftriaxone. This has healed well. He lives at home with his and is independent of his ADLs. His has had problems with Alzheimer's and infections and amputation of her toe and he assists with her care, also assists with the care of a son, who lives in a home adjacent to theirs, who has traumatic brain injury and recent fracture of his ankle. The patient was cleaning a bathroom and sprained it with Lysol and slipped on the tile floors and fell and injured his right ankle. He was taken to the emergency room and transferred to [facility] on 04/11/2019 for a trimalleolar fracture of the right ankle. He underwent surgery on 04/12/2019, open reduction and internal fixation using a Pfeiffer michelle and screws and then was placed in a posterior splint and nonweightbearing. He has done well postop, but has been left very weak and unable to ambulate due to the nonweightbearing on the right leg. He was sent to [facility] for Physical Therapy and Occupational Therapy. The patient was seen soon after his admission, was able to review with me the history what had happened and he said he is presently doing well other than soreness in the ankle and the weakness and hopes to stay here until he can get stronger. He is due to see Dr. Zabala in followup in 2 weeks. PAST MEDICAL HISTORY: Hospitalized at [facility] from 04/11/2019 to 04/14/2019 for trimalleolar fracture of the right ankle from a fall, ground level, requiring open reduction and internal fixation with a Pfeiffer michelle and two screws on 04/12/[address] Zabala. Hospitalized in March 2018 for community-acquired pneumonia. Hospitalized for a fall at [facility] that resulted in mildly displaced fracture of the left posterior 3rd, 4th, 5th, and 6th ribs complicated by mild atelectasis, that clinically resolved. The patient has generalized osteoarthritis. He underwent a right total knee replacement that after discharge was complicated by a fall that burst opened the incision, required a washout and repair of some ligaments that were injured. This later became infected and required removal of the hardware and long-term IV antibiotics and eventually underwent a right total knee arthroplasty on 05/09/2016, followed by a 6-week course of IV ceftriaxone. He has been on suppressive antibiotics with cephalexin since and has done well. He has some chronic pain from his knees and legs. He has coronary artery disease, underwent coronary artery bypass x4 in 2008. He has since been asymptomatic. He has hypertension, hypercholesterolemia, benign prostatic hypertrophy, depression, insomnia, neuropathy of the lower extremities, chronic kidney disease stage 3, GERD, history of diabetes controlled with diet alone, obstructive sleep apnea, tobacco abuse of chewing tobacco. 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 Colonoscopy in 2003 showed diverticulosis. Repeat colonoscopy in 2013 showed diverticulosis. The patient also has a history of a deep vein thrombosis, for which he is on Eliquis. This occurred in October 2018. PRESENT MEDICATIONS: 1. Aspirin 81 mg a day. 2. Melatonin 3 mg at bedtime. 3. Livalo 4 mg daily. 4. Claritin 10 mg daily p.r.n. congestion. 5. Cephalexin 500 mg every 12 hours. 6. Zetia 10 mg daily. 7. Tamsulosin 0.4 mg at bedtime. 8. Venlafaxine 150 mg ER daily. 9. Coreg 12.5 mg b.i.d. 10. Meclizine 25 mg daily p.r.n. vertigo. 11. Sulfasalazine 1000 mg b.i.d. 12. Senokot S 1 b.i.d. as needed. 13. Pantoprazole 40 mg daily. 14. Furosemide 40 mg daily. 15. Vitamin D3 5000 units at bedtime. 16. Hydrocodone/acetaminophen 10/325 one a day p.r.n. knee pain. 17. Hydralazine 25 mg b.i.d. 18. Eliquis 5 mg b.i.d. 19. Tramadol 50 mg 1 every 6 hours p.r.n. 20. Multivitamin 1 a day. 21. Amlodipine 5 mg daily. ALLERGIES: AMBIEN CAUSES JERKING MOVEMENTS AT NIGHT. SIMVASTATIN, MUSCLE PAIN. CELEXA, NAUSEA. LYRICA, MYALGIAS. NIACIN, MYALGIAS. PENICILLIN, RASH. LEVAQUIN, RASH. NEXIUM, HEADACHES. CRESTOR, MYALGIAS. ATORVASTATIN, MYALGIAS. REVIEW OF SYSTEMS: GENERAL: The patient said he has not had any chills or fever. He does not think his weight changed any. HEAD AND NECK: No complaints. PULMONARY: No complaints. CARDIOVASCULAR: No chest pain. GI: No nausea or vomiting. : No complaints. MUSCULOSKELETAL: The patient said he cannot do any weightbearing on the right leg. Prior to his fall, he had some chronic pain in the right knee from the previous surgeries and on occasion he would use the hydrocodone for this. ADLs, the patient was independent of all his ADLs prior to this fall and fracture of the right ankle. HABITS: Alcohol, none. Tobacco, the patient does not smoke. SOCIAL HISTORY: The patient lives at home with his and he assist her with her care and his son who lives next door, who has traumatic brain injury. PHYSICAL EXAMINATION: GENERAL: Shows a very pleasant 84-year-old white male, who is sitting up in bed. He is alert, talkative, appears comfortable, and in no distress. VITAL SIGNS: Shows a temperature of 98.4, pulse 72, respirations 16, O2 saturation 95% on room air, blood pressure 166/83. His weight is 203. HEENT: Head, normocephalic and atraumatic. Eyes, pupils are equal, round, and reactive. Sclerae are nonicteric. Nose normal. Mouth and throat normal. Neck, carotids are equal and strong. No bruits. Thyroid not enlarged. LUNGS: Clear. HEART: Regular rate. No murmurs. ABDOMEN: Soft, no organomegaly, nor areas of tenderness. EXTREMITIES: Lower extremities, the right lower leg is in a posterior splint. The toes were out of the splint and showed no swelling or blue discoloration, and they are warm. The right knee has a well-healed vertical incision. There is no effusion or redness. Left knee, there is no effusion or swelling. NEUROLOGIC: The patient is alert and oriented x3. Has weakness in the right lower extremity from the fracture and is nonweightbearing, otherwise remainder of extremities were all weak and symmetric. IMPRESSION: 1. Generalized weakness. a. Secondary to trimalleolar fracture of the right ankle and repair and open reduction and internal fixation on 04/12. b. Left the patient nonweightbearing on the right leg. c. Requires assistance with all his ADLs and ambulation since he is nonweightbearing on the right. 2. Fall from slipping, ground level resulting in trimalleolar fracture of the right ankle. 3. Trimalleolar fracture of the right ankle. a. Secondary to a fall on 04/11. b. Status post open reduction and internal fixation with a Pfeiffer michelle and two screws on 04/12/[address] Ramy Zabala. c. In a posterior splint and no weightbearing on the right leg. 4. Coronary artery disease. a. Status post coronary artery bypass x4 in 2008. b. Stable, asymptomatic. 5. Hypertension. 6. Hyperlipidemia. 7. Chronic kidney disease, stage III. 8. Neuropathy of the lower extremity. 9. Severe osteoarthritis of the right knee. a. 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 b. Fall resulting in opened incision and displacement of the total knee replacement requiring washout and repair of the collateral ligaments. c. Complicated by infection requiring re-excision and arthoplasty and 6- week course of IV antibiotics. d. 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 e. On chronic suppressive antibiotics with cephalexin 500 mg b.i.d. 10. Depression, controlled. 11. Deep venous thrombosis of the left lower leg. a. Venous Doppler 11/26/2018 showed DVT. b. On Eliquis 5 mg b.i.d. PLAN: The patient is admitted to [facility] for purpose of Physical Therapy and Occupational Therapy, presently is nonweightbearing on the right leg. PT and OT will work with him. He is due to see Dr. Zabala, Orthopedic Surgeon. Follow up in 2 weeks. We will continue his Eliquis. CODE STATUS: Full code. Job ID: [id number] MTDD
[2019-04-15] MEDS ORDERED: Prevnar 13-Val Conj/PF 0.5 ML SYRINGE IM ONE (09:00)
[2019-04-15] MEDS: traMADol HCl 50 MG TAB PO PRN (09:52)
--- NOTE | 2019-04-15 09:55 | PRG ---
DATE OF SERVICE: 04/15/2019 SUBJECTIVE: The patient said he was doing all right this morning. He is ready to get up, get started. Initially in conversation, he seemed to be just a little mixed up, he did recognize me and call me correctly by name, but seemed to be a little disoriented, this quickly though resolved and he was able to correctly recall that he was here in the hospital in [place]. OBJECTIVE: GENERAL: The patient is sitting up in bed. He is alert, talkative, appears comfortable, in no distress. VITAL SIGNS: Show a temperature of 98.6, pulse 78, respirations 18, O2 saturation 95% on room air, blood pressure was 184/90, last night 149/70, he has not yet had his morning medications. LUNGS: Clear. HEART: Regular rate. EXTREMITIES: Right lower leg, he has a posterior splint on the lower leg. Toes show adequate circulation and appears comfortable. LABORATORY DATA: H and H of 10.1 and 32.6, white cell count 6900 with 65% segs , 16% lymphocytes and platelet count of 141,000. Sodium 142, potassium 3.8, BUN 15, creatinine 1.5, GFR 43, and glucose 91. TSH 1.4. Cholesterol 135, triglycerides 100, LDL 66, and HDL 49. ASSESSMENT: 1. Generalized weakness. a. Secondary to trimalleolar fracture of the right ankle and repair and open reduction and internal fixation on 04/12. b. Left the patient nonweightbearing on the right leg. c. Requires assistance with all his ADLs and ambulation since he is nonweightbearing on the right. d. Physical Therapy and Occupational Therapy will start working with him today, as of 04/15/2019. 2. Fall from slipping, ground level resulting in trimalleolar fracture of the right ankle. 3. Trimalleolar fracture of the right ankle. a. Secondary to a fall on 04/11. b. Status post open reduction and internal fixation with a Pfeiffer michelle and two screws on 04/12/[address] Ramy Zabala. c. In a posterior splint and no weightbearing on the right leg. d. Comfortable, posterior splint appropriately fitting as of . 4. Coronary artery disease. a. Status post coronary artery bypass x4 in 2008. b. Stable, asymptomatic. 5. Hypertension. 6. Hyperlipidemia. 7. Chronic kidney disease, stage III. 8. Neuropathy of the lower extremity. 9. Severe osteoarthritis of the right knee. a. 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 b. Fall resulting in opened incision and displacement of the total knee replacement requiring washout and repair of the collateral ligaments. c. Complicated by infection requiring re-excision and arthoplasty and 6- week course of IV antibiotics. d. 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 e. On chronic suppressive antibiotics with cephalexin 500 mg b.i.d. 10. Depression, controlled. 11. Deep venous thrombosis of the left lower leg. a. Venous Doppler 11/26/2018 showed DVT. b. On Eliquis 5 mg b.i.d. PLAN: Continue present care. The patient seemed to have taken just a minute to get oriented to where he was this morning, but this quickly improved. We will watch this. We will utilize the Tylenol as initially for pain and the tramadol only as a fall back. PT and OT will begin working with him. Job ID: [id number] [facility]
[2019-04-15] MEDS: Fluticasone Propionate Nasal Spray 16 gm Bottle NASAL SCH (21:49)
[2019-04-15] MEDS: Melatonin 3 MG TAB PO SCH (21:49)
[2019-04-15] MEDS: PITAVASTATIN CALCIUM 4 MG PO SCH (21:49)
[2019-04-15] MEDS: Tamsulosin HCl 0.4 MG CAP PO SCH (21:50)
[2019-04-16] MEDS: traMADol HCl 50 MG TAB PO PRN ×3 (08:50→23:21)
[2019-04-16] MEDS: Ezetimibe 10 MG TAB PO SCH (08:51)
[2019-04-16] MEDS: Furosemide 20 MG TAB PO SCH (08:51)
[2019-04-16] MEDS: Apixaban 5 MG TAB PO SCH ×2 (08:51→20:27)
[2019-04-16] MEDS: Aspirin Chewable 81 MG TAB PO SCH (08:51)
[2019-04-16] MEDS: Carvedilol 6.25 MG TAB PO SCH ×2 (08:51→17:31)
[2019-04-16] MEDS: Venlafaxine HCl XR 150 MG CAP PO SCH (08:51)
[2019-04-16] MEDS: Multivit, Therapeutic 1 TAB PO SCH (08:52)
[2019-04-16] MEDS: Senokot S 8.6-50 MG TAB PO SCH ×2 (08:52→20:26)
[2019-04-16] MEDS: Polyethylene Glycol 3350 17 GM Packet PO SCH (08:52)
[2019-04-16] MEDS: Amlodipine 5 MG TAB PO SCH (08:52)
[2019-04-16] MEDS: Cephalexin 500 MG CAP PO SCH ×2 (08:52→20:27)
--- NOTE | 2019-04-16 10:50 | PRG ---
DATE OF SERVICE: 04/16/2019 SUBJECTIVE: The patient thinks he is doing better. It just hurts a lot when he moves the right leg. There was just a little serous drainage on the dressing yesterday. This was just reinforced with that Adaptic per recommendations of his surgeon, Dr. Zabala. OBJECTIVE: GENERAL: The patient is sitting up in bed. He is alert and answers question appropriately. He is oriented x3. VITAL SIGNS: Shows a temperature of 98.7, pulse 84, respirations 18, O2 saturation 96%, and blood pressure 161/81. LUNGS: Clear. HEART: Regular rate. EXTREMITIES: Right lower leg, toes are normal color. Good capillary refill. The posterior splint seemed to be fitting appropriately. Around the ankle area, there has been a Kerlix wrap, but the dressing is dry. ASSESSMENT: 1. Generalized weakness. a. Secondary to trimalleolar fracture of the right ankle and repair and open reduction and internal fixation on 04/12. b. Left the patient nonweightbearing on the right leg. c. Requires assistance with all his ADLs and ambulation since he is nonweightbearing on the right. d. PT and OT. Continue to work with the patient as of 04/16/2019. 2. Fall from slipping, ground level resulting in trimalleolar fracture of the right ankle. 3. Trimalleolar fracture of the right ankle. a. Secondary to a fall on 04/11. b. Status post open reduction and internal fixation with a Pfeiffer michelle and two screws on 04/12/[address] Ramy Zabala. c. In a posterior splint and no weightbearing on the right leg. d. Comfortable, posterior splint appropriately fitting as of 04/16/2019. 4. Coronary artery disease. a. Status post coronary artery bypass x4 in 2008. b. Stable, asymptomatic. 5. Hypertension. 6. Hyperlipidemia. 7. Chronic kidney disease, stage III. 8. Neuropathy of the lower extremity. 9. Severe osteoarthritis of the right knee. a. 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 b. Fall resulting in opened incision and displacement of the total knee replacement requiring washout and repair of the collateral ligaments. c. Complicated by infection requiring re-excision and arthoplasty and 6- week course of IV antibiotics. d. 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 e. On chronic suppressive antibiotics with cephalexin 500 mg b.i.d. 10. Depression, controlled. 11. Deep venous thrombosis of the left lower leg. a. Venous Doppler 11/26/2018 showed DVT. b. On Eliquis 5 mg b.i.d. PLAN: Continue present care. Continue PT/OT. The patient is due to see Dr. Zabala in followup on 04/27/2019. Job ID: [id number] MTDD
[2019-04-16] MEDS: Melatonin 3 MG TAB PO SCH (20:25)
[2019-04-16] MEDS: Tamsulosin HCl 0.4 MG CAP PO SCH (20:26)
[2019-04-16] MEDS: Fluticasone Propionate Nasal Spray 16 gm Bottle NASAL SCH (20:27)
[2019-04-16] MEDS: PITAVASTATIN CALCIUM 4 MG PO SCH (20:28)
[2019-04-17] MEDS: Furosemide 20 MG TAB PO SCH (08:16)
[2019-04-17] MEDS: Ezetimibe 10 MG TAB PO SCH (08:16)
[2019-04-17] MEDS: Polyethylene Glycol 3350 17 GM Packet PO SCH (08:16)
[2019-04-17] MEDS: Aspirin Chewable 81 MG TAB PO SCH (08:16)
[2019-04-17] MEDS: Carvedilol 6.25 MG TAB PO SCH ×2 (08:16→17:27)
[2019-04-17] MEDS: Senokot S 8.6-50 MG TAB PO SCH ×2 (08:17→20:34)
[2019-04-17] MEDS: Cephalexin 500 MG CAP PO SCH ×2 (08:17→20:34)
[2019-04-17] MEDS: Venlafaxine HCl XR 150 MG CAP PO SCH (08:17)
[2019-04-17] MEDS: Multivit, Therapeutic 1 TAB PO SCH (08:17)
[2019-04-17] MEDS: Apixaban 5 MG TAB PO SCH ×2 (08:17→20:34)
[2019-04-17] MEDS: traMADol HCl 50 MG TAB PO PRN ×2 (08:17→19:46)
[2019-04-17] MEDS: Amlodipine 5 MG TAB PO SCH (08:20)
[2019-04-17] MEDS: Acetaminophen 325 MG TAB PO PRN (12:31)
[2019-04-17] MEDS: Tamsulosin HCl 0.4 MG CAP PO SCH (20:33)
[2019-04-17] MEDS: Melatonin 3 MG TAB PO SCH (20:35)
[2019-04-17] MEDS: Fluticasone Propionate Nasal Spray 16 gm Bottle NASAL SCH (20:37)
[2019-04-17] MEDS: PITAVASTATIN CALCIUM 4 MG PO SCH (20:37)
[2019-04-18] MEDS: traMADol HCl 50 MG TAB PO PRN ×2 (08:13→15:42)
[2019-04-18] MEDS: Acetaminophen 325 MG TAB PO PRN ×2 (08:15→12:31)
[2019-04-18] MEDS: Aspirin Chewable 81 MG TAB PO SCH (08:15)
[2019-04-18] MEDS: Ezetimibe 10 MG TAB PO SCH (08:16)
[2019-04-18] MEDS: Carvedilol 6.25 MG TAB PO SCH ×2 (08:16→17:08)
[2019-04-18] MEDS: Multivit, Therapeutic 1 TAB PO SCH (08:16)
[2019-04-18] MEDS: Apixaban 5 MG TAB PO SCH ×2 (08:16→20:11)
[2019-04-18] MEDS: Furosemide 20 MG TAB PO SCH (08:16)
[2019-04-18] MEDS: Amlodipine 5 MG TAB PO SCH (08:16)
[2019-04-18] MEDS: Cephalexin 500 MG CAP PO SCH ×2 (08:16→20:09)
[2019-04-18] MEDS: Venlafaxine HCl XR 150 MG CAP PO SCH (08:16)
[2019-04-18] MEDS: Senokot S 8.6-50 MG TAB PO SCH ×2 (08:17→20:08)
[2019-04-18] MEDS: Polyethylene Glycol 3350 17 GM Packet PO SCH (08:17)
[2019-04-18] MEDS: Melatonin 3 MG TAB PO SCH (20:09)
[2019-04-18] MEDS: Tamsulosin HCl 0.4 MG CAP PO SCH (20:10)
[2019-04-18] MEDS: PITAVASTATIN CALCIUM 4 MG PO SCH (20:11)
[2019-04-18] MEDS: Fluticasone Propionate Nasal Spray 16 gm Bottle NASAL SCH (20:11)
[2019-04-19] MEDS: traMADol HCl 50 MG TAB PO PRN (00:19)
[2019-04-19] MEDS: Carvedilol 6.25 MG TAB PO SCH (08:22)
[2019-04-19] MEDS: Polyethylene Glycol 3350 17 GM Packet PO SCH (08:22)
[2019-04-19] MEDS: Ezetimibe 10 MG TAB PO SCH (08:23)
[2019-04-19] MEDS: Apixaban 5 MG TAB PO SCH ×2 (08:23→22:01)
[2019-04-19] MEDS: Venlafaxine HCl XR 150 MG CAP PO SCH (08:23)
[2019-04-19] MEDS: Senokot S 8.6-50 MG TAB PO SCH ×2 (08:23→22:03)
[2019-04-19] MEDS: Multivit, Therapeutic 1 TAB PO SCH (08:23)
[2019-04-19] MEDS: Cephalexin 500 MG CAP PO SCH ×2 (08:23→22:01)
[2019-04-19] MEDS: Aspirin Chewable 81 MG TAB PO SCH (08:23)
[2019-04-19] MEDS: Amlodipine 5 MG TAB PO SCH (08:23)
[2019-04-19] MEDS: Furosemide 20 MG TAB PO SCH (08:23)
--- NOTE | 2019-04-19 10:47 | PRG ---
DATE OF SERVICE: 04/19/2019 SUBJECTIVE: Last evening, through the night, the patient has gotten confused. He has been seeing things on the wall and he has not been agitated. He has been placed in a Julianne chair, and this morning, he is up at the nurses station. He was alert and talkative, but still mixed up. In visiting with family, his [id number], this apparently had happened before as a result of pain medication. It has happened when he had to take higher dose of the hydrocodone, but she said it is also happening with the tramadol. He yesterday had received three tramadol, last one was last evening. This has been stopped. OBJECTIVE: GENERAL: The patient is sitting in a Julianne chair. He is smiling, alert, but mixed up. He appears though in no distress. VITAL SIGNS: His temp is 99, pulse 75, respirations 16, O2 saturation 92% on room air, blood pressure 135/75. LUNGS: Clear. HEART: Regular rate. EXTREMITIES: Right leg; the patient has posterior lower leg splint. The toes show evidence of good circulation. ASSESSMENT: 1. Generalized weakness. a. Secondary to trimalleolar fracture of the right ankle and repair and open reduction and internal fixation on 04/12. b. Left the patient nonweightbearing on the right leg. c. Requires assistance with all his ADLs and ambulation since he is nonweightbearing on the right. d. Limited in capabilities due to the nonweightbearing on the right leg. PT and OT working with him as of 04/19/2019. 2. Fall from slipping, ground level resulting in trimalleolar fracture of the right ankle. 3. Trimalleolar fracture of the right ankle. a. Secondary to a fall on 04/11. b. Status post open reduction and internal fixation with a Pfeiffer michelle and two screws on 04/12/[address] Ramy Zabala. c. In a posterior splint and no weightbearing on the right leg. d. Comfortable, posterior splint appropriately fitting as of 04/19/2019. 4. Coronary artery disease. a. Status post coronary artery bypass x4 in 2008. b. Stable, asymptomatic. 5. Hypertension. 6. Hyperlipidemia. 7. Chronic kidney disease, stage III. 8. Neuropathy of the lower extremity. 9. Severe osteoarthritis of the right knee. a. 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 b. Fall resulting in opened incision and displacement of the total knee replacement requiring washout and repair of the collateral ligaments. c. Complicated by infection requiring re-excision and arthoplasty and 6- week course of IV antibiotics. d. 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 e. On chronic suppressive antibiotics with cephalexin 500 mg b.i.d. 10. Depression, controlled. 11. Deep venous thrombosis of the left lower leg. a. Venous Doppler 11/26/2018 showed DVT. b. On Eliquis 5 mg b.i.d. 12. Confusion. a. Secondary to the effect of the tramadol. PLAN: Stop the tramadol. We will use the Tylenol 500 mg two every 6 hours as needed. Anticipate gradual clearing of this confusion as the tramadol is metabolized from his system. Job ID: [id number] MTDD
--- NOTE | 2019-04-19 10:48 | PRG ---
DATE OF SERVICE: 04/17/2019 SUBJECTIVE: The patient says he feels better today. His right lower leg and ankle feels better. OBJECTIVE: GENERAL: The patient is sitting up in a lounge chair. He has just shaved, and he appears very comfortable. He is oriented x3. Appears in no distress. VITAL SIGNS: Shows a temperature of 98.6, pulse 80, respirations 16, O2 saturation 93% on room air, blood pressure 144/92. LUNGS: Clear. HEART: Regular rate. EXTREMITIES: Lower extremity, the patient has a lower leg posterior splint, it fits appropriately. The toes are not edematous or blue. They are warm with good capillary refill. The Kerlix wrapping around the ankles dry. There is no drainage on this. ASSESSMENT: 1. Generalized weakness. a. Secondary to trimalleolar fracture of the right ankle and repair and open reduction and internal fixation on 04/12. b. Left the patient nonweightbearing on the right leg. c. Requires assistance with all his ADLs and ambulation since he is nonweightbearing on the right. d. Physical therapy and occupational therapy continues to work with the patient. He is nonweightbearing on the right leg as of 04/17/2019. 2. Fall from slipping, ground level resulting in trimalleolar fracture of the right ankle. 3. Trimalleolar fracture of the right ankle. a. Secondary to a fall on 04/11. b. Status post open reduction and internal fixation with a Pfeiffer michelle and two screws on 04/12/[address] Ramy Zabala. c. In a posterior splint and no weightbearing on the right leg. d. Comfortable, posterior splint appropriately fitting as of 04/17/2019. 4. Coronary artery disease. a. Status post coronary artery bypass x4 in 2008. b. Stable, asymptomatic. 5. Hypertension. 6. Hyperlipidemia. 7. Chronic kidney disease, stage III. 8. Neuropathy of the lower extremity. 9. Severe osteoarthritis of the right knee. a. 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 b. Fall resulting in opened incision and displacement of the total knee replacement requiring washout and repair of the collateral ligaments. c. Complicated by infection requiring re-excision and arthoplasty and 6- week course of IV antibiotics. d. 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 e. On chronic suppressive antibiotics with cephalexin 500 mg b.i.d. 10. Depression, controlled. 11. Deep venous thrombosis of the left lower leg. a. Venous Doppler 11/26/2018 showed DVT. b. On Eliquis 5 mg b.i.d. PLAN: Continue present care. Continue PT/OT. The patient will see his orthopedic surgeon, Dr. Zabala, in followup on 04/27/2019. Job ID: [id number] [facility]
[2019-04-19] MEDS: Acetaminophen 500 MG TAB PO PRN ×2 (11:29→22:05)
[2019-04-19] MEDS: Carvedilol 12.5 MG TAB PO SCH (17:08)
[2019-04-19] MEDS: Melatonin 3 MG TAB PO SCH (22:03)
[2019-04-19] MEDS: Fluticasone Propionate Nasal Spray 16 gm Bottle NASAL SCH (22:03)
[2019-04-19] MEDS: Tamsulosin HCl 0.4 MG CAP PO SCH (22:04)
[2019-04-19] MEDS: PITAVASTATIN CALCIUM 4 MG PO SCH (22:05)
[2019-04-20] MEDS: Venlafaxine HCl XR 150 MG CAP PO SCH (08:55)
[2019-04-20] MEDS: Amlodipine 5 MG TAB PO SCH (08:55)
[2019-04-20] MEDS: Aspirin Chewable 81 MG TAB PO SCH (08:55)
[2019-04-20] MEDS: Apixaban 5 MG TAB PO SCH ×2 (08:55→20:36)
[2019-04-20] MEDS: Cephalexin 500 MG CAP PO SCH ×2 (08:55→20:36)
[2019-04-20] MEDS: Multivit, Therapeutic 1 TAB PO SCH (08:55)
[2019-04-20] MEDS: Ezetimibe 10 MG TAB PO SCH (08:55)
[2019-04-20] MEDS: Senokot S 8.6-50 MG TAB PO SCH ×2 (08:55→20:37)
[2019-04-20] MEDS: Furosemide 20 MG TAB PO SCH (08:55)
[2019-04-20] MEDS: Carvedilol 12.5 MG TAB PO SCH ×2 (08:55→17:32)
[2019-04-20] MEDS: Polyethylene Glycol 3350 17 GM Packet PO SCH (08:56)
[2019-04-20] MEDS: Acetaminophen 500 MG TAB PO PRN ×2 (11:59→20:45)
--- NOTE | 2019-04-20 12:22 | PRG ---
DATE OF SERVICE: 04/20/2019 SUBJECTIVE: Nurses reported during the night, the patient did get up out of bed and started walking some. He was immediately assisted back into bed. This morning , he seems to be a little better, but not quite back to his usual mental status baseline. OBJECTIVE: GENERAL: The patient is alert. He is lying in bed. He recognizes me. He thought he was at home, but he quickly corrected himself and said he was in the hospital. He does know the month of the year. He looks better. He does not look agitated or anxious or in any distress. VITAL SIGNS: Show a temperature 98.8, pulse 87, respirations 16, O2 saturation 95% on room air, blood pressure 182/89, earlier 161/74. LUNGS: Clear. HEART: Regular rate. EXTREMITIES: Right leg, the posterior lower leg splint is fitting appropriately. The toes show good capillary refill. No discoloration. ASSESSMENT 1. Generalized weakness. a. Secondary to trimalleolar fracture of the right ankle and repair and open reduction and internal fixation on 04/12. b. Left the patient nonweightbearing on the right leg. c. Requires assistance with all his ADLs and ambulation since he is nonweightbearing on the right. d. Limited in capabilities due to the nonweightbearing on the right leg. PT and OT working with him as of 04/20/2019. 2. Fall from slipping, ground level resulting in trimalleolar fracture of the right ankle. 3. Trimalleolar fracture of the right ankle. a. Secondary to a fall on 04/11. b. Status post open reduction and internal fixation with a Pfeiffer michelle and two screws on 04/12/[address] Ramy Zabala. c. In a posterior splint and no weightbearing on the right leg. d. Comfortable, posterior splint appropriately fitting as of 04/19/2019. 4. Coronary artery disease. a. Status post coronary artery bypass x4 in 2008. b. Stable, asymptomatic. 5. Hypertension. 6. Hyperlipidemia. 7. Chronic kidney disease, stage III. 8. Neuropathy of the lower extremity. 9. Severe osteoarthritis of the right knee. a. 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 b. Fall resulting in opened incision and displacement of the total knee replacement requiring washout and repair of the collateral ligaments. c. Complicated by infection requiring re-excision and arthoplasty and 6-week course of IV antibiotics. d. 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 e. On chronic suppressive antibiotics with cephalexin 500 mg b.i.d. 10. Depression, controlled. 11. Deep venous thrombosis of the left lower leg. a. Venous Doppler 11/26/2018 showed DVT. b. On Eliquis 5 mg b.i.d. 12. Confusion. a. Secondary to the effect of the tramadol. b. Improved, but not quite back to his mental status baseline as of 2018. PLAN: The patient has now been off the tramadol for about a 36-hour period and his mental status is improving. I expect this to continue to improve. For now, the Tylenol alone seem to be managing his pain. We will continue PT. Job ID: [id number] MTDD
[2019-04-20] MEDS: Tamsulosin HCl 0.4 MG CAP PO SCH (20:36)
[2019-04-20] MEDS: Melatonin 3 MG TAB PO SCH (20:38)
[2019-04-20] MEDS: Fluticasone Propionate Nasal Spray 16 gm Bottle NASAL SCH (20:39)
[2019-04-20] MEDS: PITAVASTATIN CALCIUM 4 MG PO SCH (20:40)
[2019-04-21] MEDS: Amlodipine 5 MG TAB PO SCH (08:52)
[2019-04-21] MEDS: Acetaminophen 500 MG TAB PO PRN ×2 (08:52→16:46)
[2019-04-21] MEDS: Aspirin Chewable 81 MG TAB PO SCH (08:52)
[2019-04-21] MEDS: Venlafaxine HCl XR 150 MG CAP PO SCH (08:52)
[2019-04-21] MEDS: Ezetimibe 10 MG TAB PO SCH (08:52)
[2019-04-21] MEDS: Furosemide 20 MG TAB PO SCH (08:52)
[2019-04-21] MEDS: Senokot S 8.6-50 MG TAB PO SCH (08:53)
[2019-04-21] MEDS: Polyethylene Glycol 3350 17 GM Packet PO SCH (08:53)
[2019-04-21] MEDS: Carvedilol 12.5 MG TAB PO SCH ×2 (08:53→16:46)
[2019-04-21] MEDS: Cephalexin 500 MG CAP PO SCH ×2 (08:53→20:24)
[2019-04-21] MEDS: Multivit, Therapeutic 1 TAB PO SCH (08:53)
[2019-04-21] MEDS: Apixaban 5 MG TAB PO SCH ×2 (08:53→20:24)
--- NOTE | 2019-04-21 11:34 | PRG ---
DATE OF SERVICE: 04/21/2019 SUBJECTIVE: The patient said he had a good night. He slept good. Did not try to get up on his own last night. He worked well with Physical Therapy. He is still nonweightbearing on the right leg. He said that the confusion seems to be resolved. OBJECTIVE: GENERAL: The patient is lying in bed, alert, recognizes me, knows he is in the hospital, knows what city he is in. Answers questions appropriately. He appears comfortable, in no distress. VITAL SIGNS: His temperature is 98.7, pulse 72, respirations 16, O2 saturation 95% on room air, blood pressure 182/97, last evening 152/81. LUNGS: Clear. HEART: Regular rate. EXTREMITIES: Right leg is in a posterior lower leg splint, fits appropriately and toes show good capillary refill. ASSESSMENT: 1. Generalized weakness. a. Secondary to trimalleolar fracture of the right ankle and repair and open reduction and internal fixation on 04/12. b. Left the patient nonweightbearing on the right leg. c. Requires assistance with all his ADLs and ambulation since he is nonweightbearing on the right. d. Improved. Remains nonweightbearing on the right leg as of 04/21/2019. 2. Fall from slipping, ground level resulting in trimalleolar fracture of the right ankle. 3. Trimalleolar fracture of the right ankle. a. Secondary to a fall on 04/11. b. Status post open reduction and internal fixation with a Pfeiffer michelle and two screws on 04/12/[address] Ramy Zabala. c. In a posterior splint and no weightbearing on the right leg. d. Comfortable, posterior splint appropriately fitting as of 04/21/2019. 4. Coronary artery disease. a. Status post coronary artery bypass x4 in 2008. b. Stable, asymptomatic. 5. Hypertension. 6. Hyperlipidemia. 7. Chronic kidney disease, stage III. 8. Neuropathy of the lower extremity. 9. Severe osteoarthritis of the right knee. a. 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 b. Fall resulting in opened incision and displacement of the total knee replacement requiring washout and repair of the collateral ligaments. c. Complicated by infection requiring re-excision and arthoplasty and 6- week course of IV antibiotics. d. 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 e. On chronic suppressive antibiotics with cephalexin 500 mg b.i.d. 10. Depression, controlled. 11. Deep venous thrombosis of the left lower leg. a. Venous Doppler 11/26/2018 showed DVT. b. On Eliquis 5 mg b.i.d. 12. Confusion. a. Secondary to the effect of the tramadol. b. Resolved as of 04/21/2019. PLN: Continue present care. Continue pain management at this point with just a plain Tylenol. At home, he has used hydrocodone and as long as this is a limited amount, he does not have a confusional problem, so this would be a future option , if necessary. Continue PT/OT. Job ID: [id number] [facility]
[2019-04-21] MEDS ORDERED: Ondansetron ODT 4 MG TAB SL PRN (13:17)
[2019-04-21] MEDS: Melatonin 3 MG TAB PO SCH (20:24)
[2019-04-21] MEDS: Tamsulosin HCl 0.4 MG CAP PO SCH (20:24)
[2019-04-21] MEDS: PITAVASTATIN CALCIUM 4 MG PO SCH (20:26)
[2019-04-21] MEDS: Fluticasone Propionate Nasal Spray 16 gm Bottle NASAL SCH (20:28)
[2019-04-22] MEDS: Aspirin Chewable 81 MG TAB PO SCH (08:27)
[2019-04-22] MEDS: Amlodipine 5 MG TAB PO SCH (08:27)
[2019-04-22] MEDS: Ezetimibe 10 MG TAB PO SCH (08:28)
[2019-04-22] MEDS: Cephalexin 500 MG CAP PO SCH ×2 (08:28→21:12)
[2019-04-22] MEDS: Carvedilol 12.5 MG TAB PO SCH ×2 (08:28→18:01)
[2019-04-22] MEDS: Furosemide 20 MG TAB PO SCH (08:28)
[2019-04-22] MEDS: Acetaminophen 500 MG TAB PO PRN (08:28)
[2019-04-22] MEDS: Polyethylene Glycol 3350 17 GM Packet PO SCH (08:28)
[2019-04-22] MEDS: Venlafaxine HCl XR 150 MG CAP PO SCH (08:28)
[2019-04-22] MEDS: Multivit, Therapeutic 1 TAB PO SCH (08:28)
[2019-04-22] MEDS: Apixaban 5 MG TAB PO SCH ×2 (08:28→21:12)
[2019-04-22] MEDS: Tamsulosin HCl 0.4 MG CAP PO SCH (21:12)
[2019-04-22] MEDS: Melatonin 3 MG TAB PO SCH (21:12)
[2019-04-22] MEDS: PITAVASTATIN CALCIUM 4 MG PO SCH (21:13)
[2019-04-22] MEDS: Fluticasone Propionate Nasal Spray 16 gm Bottle NASAL SCH (21:13)
[2019-04-23] MEDS: Acetaminophen 500 MG TAB PO PRN ×3 (04:07→21:04)
[2019-04-23] MEDS: Aspirin Chewable 81 MG TAB PO SCH (08:47)
[2019-04-23] MEDS: Venlafaxine HCl XR 150 MG CAP PO SCH (08:47)
[2019-04-23] MEDS: Multivit, Therapeutic 1 TAB PO SCH (08:47)
[2019-04-23] MEDS: Furosemide 20 MG TAB PO SCH (08:47)
[2019-04-23] MEDS: Cephalexin 500 MG CAP PO SCH ×2 (08:47→21:00)
[2019-04-23] MEDS: Ezetimibe 10 MG TAB PO SCH (08:48)
[2019-04-23] MEDS: Polyethylene Glycol 3350 17 GM Packet PO SCH (08:48)
[2019-04-23] MEDS: Carvedilol 12.5 MG TAB PO SCH ×2 (08:48→17:12)
[2019-04-23] MEDS: Amlodipine 5 MG TAB PO SCH (08:48)
[2019-04-23] MEDS: Apixaban 5 MG TAB PO SCH ×2 (08:48→21:00)
--- NOTE | 2019-04-23 09:53 | PRG ---
DATE OF SERVICE: 04/22/2019 SUBJECTIVE: The patient said he is doing better. He says all the confusion is gone away. He continues to work with Physical Therapy. OBJECTIVE: GENERAL: The patient is sitting up in bed. He is alert, talkative, appears in no distress. Answers questions all appropriately. VITAL SIGNS: Shows a temperature of 99, pulse 86, respirations 18, O2 saturation 94% on room air, blood pressure 164/82. LUNGS: Clear. HEART: Regular rate. EXTREMITIES: No edema. Right lower leg is in a posterior splint, but toes have good color and have good capillary refill. ASSESSMENT: 1. Generalized weakness. a. Secondary to trimalleolar fracture of the right ankle and repair and open reduction and internal fixation on 04/12. b. Left the patient nonweightbearing on the right leg. c. Requires assistance with all his ADLs and ambulation since he is nonweightbearing on the right. d. Improved. Remains nonweightbearing on the right leg as of 04/22/2019. 2. Fall from slipping, ground level resulting in trimalleolar fracture of the right ankle. 3. Trimalleolar fracture of the right ankle. a. Secondary to a fall on 04/11. b. Status post open reduction and internal fixation with a Pfeiffer michelle and two screws on 04/12/[address] Ramy Zabala. c. In a posterior splint and no weightbearing on the right leg. d. Comfortable, posterior splint appropriately fitting as of 04/22/2019. 4. Coronary artery disease. a. Status post coronary artery bypass x4 in 2008. b. Stable, asymptomatic. 5. Hypertension. 6. Hyperlipidemia. 7. Chronic kidney disease, stage III. 8. Neuropathy of the lower extremity. 9. Severe osteoarthritis of the right knee. a. 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 b. Fall resulting in opened incision and displacement of the total knee replacement requiring washout and repair of the collateral ligaments. c. Complicated by infection requiring re-excision and arthoplasty and 6-week course of IV antibiotics. d. 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 e. On chronic suppressive antibiotics with cephalexin 500 mg b.i.d. 10. Depression, controlled. 11. Deep venous thrombosis of the left lower leg. a. Venous Doppler 11/26/2018 showed DVT. b. On Eliquis 5 mg b.i.d. 12. Confusion. a. Secondary to the effect of the tramadol. b. Resolved as of 04/21/2019. c. No recurrence as of 04/22/2019. He remains at his normal baseline mental status. PLAN: Continue present care. Continue PT/OT. The patient is scheduled to see his orthopedic surgeon Dr. Torrez on Friday, 04/26. Job ID: [id number] MTDKiko
[2019-04-23] MEDS: Fluticasone Propionate Nasal Spray 16 gm Bottle NASAL SCH (21:01)
[2019-04-23] MEDS: PITAVASTATIN CALCIUM 4 MG PO SCH (21:02)
[2019-04-23] MEDS: Melatonin 3 MG TAB PO SCH (21:02)
[2019-04-23] MEDS: Tamsulosin HCl 0.4 MG CAP PO SCH (21:03)
[2019-04-24] MEDS: Amlodipine 5 MG TAB PO SCH (08:40)
[2019-04-24] MEDS: Aspirin Chewable 81 MG TAB PO SCH (08:41)
[2019-04-24] MEDS: Carvedilol 12.5 MG TAB PO SCH ×2 (08:41→17:47)
[2019-04-24] MEDS: Apixaban 5 MG TAB PO SCH ×2 (08:41→20:32)
[2019-04-24] MEDS: Multivit, Therapeutic 1 TAB PO SCH (08:41)
[2019-04-24] MEDS: Ezetimibe 10 MG TAB PO SCH (08:41)
[2019-04-24] MEDS: Venlafaxine HCl XR 150 MG CAP PO SCH (08:41)
[2019-04-24] MEDS: Furosemide 20 MG TAB PO SCH (08:41)
[2019-04-24] MEDS: Cephalexin 500 MG CAP PO SCH ×2 (08:41→20:32)
[2019-04-24] MEDS: Polyethylene Glycol 3350 17 GM Packet PO SCH (08:42)
[2019-04-24] MEDS: Acetaminophen 500 MG TAB PO PRN (17:47)
[2019-04-24] MEDS: Fluticasone Propionate Nasal Spray 16 gm Bottle NASAL SCH (20:33)
[2019-04-24] MEDS: Melatonin 3 MG TAB PO SCH (20:33)
[2019-04-24] MEDS: PITAVASTATIN CALCIUM 4 MG PO SCH (20:33)
[2019-04-24] MEDS: Tamsulosin HCl 0.4 MG CAP PO SCH (20:34)
[2019-04-25] MEDS: Venlafaxine HCl XR 150 MG CAP PO SCH (08:28)
[2019-04-25] MEDS: Furosemide 20 MG TAB PO SCH (08:28)
[2019-04-25] MEDS: Ezetimibe 10 MG TAB PO SCH (08:28)
[2019-04-25] MEDS: Aspirin Chewable 81 MG TAB PO SCH (08:28)
[2019-04-25] MEDS: Apixaban 5 MG TAB PO SCH ×2 (08:28→20:56)
[2019-04-25] MEDS: Carvedilol 12.5 MG TAB PO SCH ×2 (08:28→16:56)
[2019-04-25] MEDS: Multivit, Therapeutic 1 TAB PO SCH (08:28)
[2019-04-25] MEDS: Amlodipine 5 MG TAB PO SCH (08:28)
[2019-04-25] MEDS: Cephalexin 500 MG CAP PO SCH ×2 (08:28→20:56)
[2019-04-25] MEDS: Polyethylene Glycol 3350 17 GM Packet PO SCH (08:29)
[2019-04-25] MEDS: Acetaminophen 500 MG TAB PO PRN ×2 (09:01→20:56)
[2019-04-25] MEDS: Fluticasone Propionate Nasal Spray 16 gm Bottle NASAL SCH (20:55)
[2019-04-25] MEDS: PITAVASTATIN CALCIUM 4 MG PO SCH (20:55)
[2019-04-25] MEDS: Tamsulosin HCl 0.4 MG CAP PO SCH (20:56)
[2019-04-25] MEDS: Melatonin 3 MG TAB PO SCH (20:57)
[2019-04-26] MEDS: Multivit, Therapeutic 1 TAB PO SCH (09:02)
[2019-04-26] MEDS: Cephalexin 500 MG CAP PO SCH ×2 (09:02→20:46)
[2019-04-26] MEDS: Venlafaxine HCl XR 150 MG CAP PO SCH (09:02)
[2019-04-26] MEDS: Carvedilol 12.5 MG TAB PO SCH ×2 (09:02→17:12)
[2019-04-26] MEDS: Polyethylene Glycol 3350 17 GM Packet PO SCH ×2 (09:03→17:12)
[2019-04-26] MEDS: Furosemide 20 MG TAB PO SCH (09:03)
[2019-04-26] MEDS: Ezetimibe 10 MG TAB PO SCH (09:03)
[2019-04-26] MEDS: Acetaminophen 500 MG TAB PO PRN (09:03)
[2019-04-26] MEDS: Aspirin Chewable 81 MG TAB PO SCH (09:03)
[2019-04-26] MEDS: Amlodipine 5 MG TAB PO SCH (09:03)
[2019-04-26] MEDS: Apixaban 5 MG TAB PO SCH ×2 (09:03→20:45)
--- NOTE | 2019-04-26 12:20 | PRG ---
DATE OF SERVICE: 04/26/2019 SUBJECTIVE: The patient is feeling good today. He slept well. He has no complaint. OBJECTIVE: GENERAL: The patient is lying in bed. He looks comfortable, in no distress. VITAL SIGNS: Temp 97.6, pulse 62, respirations 18, O2 saturation 97% on room air, blood pressure 136/68. LUNGS: Clear. HEART: Regular rate. EXTREMITIES: Right lower leg is in a posterior splint and fits well. Toes show no swelling and good capillary refill. ASSESSMENT: 1. Generalized weakness. a. Secondary to trimalleolar fracture of the right ankle and repair and open reduction and internal fixation on 04/12. b. Left the patient nonweightbearing on the right leg. c. Requires assistance with all his ADLs and ambulation since he is nonweightbearing on the right. d. Improved. Remains nonweightbearing on the right leg. Walking by hopping a little further each day as of 04/26/2019. 2. Fall from slipping, ground level resulting in trimalleolar fracture of the right ankle. 3. Trimalleolar fracture of the right ankle. a. Secondary to a fall on 04/11. b. Status post open reduction and internal fixation with a Pfeiffer michelle and two screws on 04/12/[address] Ramy Zabala. c. In a posterior splint and no weightbearing on the right leg. d. Comfortable, posterior splint appropriately fitting as of 04/26/2019. 4. Coronary artery disease. a. Status post coronary artery bypass x4 in 2008. b. Stable, asymptomatic. 5. Hypertension. 6. Hyperlipidemia. 7. Chronic kidney disease, stage III. 8. Neuropathy of the lower extremity. 9. Severe osteoarthritis of the right knee. a. 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 b. Fall resulting in opened incision and displacement of the total knee replacement requiring washout and repair of the collateral ligaments. c. Complicated by infection requiring re-excision and arthoplasty and 6- week course of IV antibiotics. d. 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 e. On chronic suppressive antibiotics with cephalexin 500 mg b.i.d. 10. Depression, controlled. 11. Deep venous thrombosis of the left lower leg. a. Venous Doppler 11/26/2018 showed DVT. b. On Eliquis 5 mg b.i.d. 12. Confusion. a. Secondary to the effect of the tramadol. b. Resolved as of 04/21/2019. c. No recurrence as of 04/26/2019. He remains in his normal mental status baseline. PLAN: Continue PT and OT. The patient is due to see his orthopedic surgeon, Dr. Zabala tomorrow on 04/27. Job ID: [id number] MTDD
--- NOTE | 2019-04-26 12:21 | PRG ---
DATE OF SERVICE: 04/24/2019 SUBJECTIVE: The patient said he is doing good today. He said he is making progress with physical therapy. Yesterday, he was able to walk by hopping since he has no weightbearing on that right leg, 30 feet on two occasions and 20 feet on two other occasions, used his rolling walker. He is still requiring some assistance with transfers. The patient has not had any confusion issues. OBJECTIVE: GENERAL: The patient is sitting up in a lounge chair. He looks comfortable, in no distress. VITAL SIGNS: His temperature is 97.7, pulse 77, respirations 18, O2 saturations 96% on room air, and blood pressure 165/81. LUNGS: Clear. HEART: Regular rate. EXTREMITIES: Right lower leg, the patient has a posterior lower leg splint that is well fitting. Toe showed good capillary refill. ASSESSMENT: 1. Generalized weakness. a. Secondary to trimalleolar fracture of the right ankle and repair and open reduction and internal fixation on 04/12. b. Left the patient nonweightbearing on the right leg. c. Requires assistance with all his ADLs and ambulation since he is nonweightbearing on the right. d. Improved. Remains nonweightbearing on the right leg. Able to walk by hopping and use of a walker 20 to 30 feet several times a day as of 04/24/2019. Still requires assistance with transfers. 2. Fall from slipping, ground level resulting in trimalleolar fracture of the right ankle. 3. Trimalleolar fracture of the right ankle. a. Secondary to a fall on 04/11. b. Status post open reduction and internal fixation with a Pfeiffer michelle and two screws on 04/12/[address] Ramy Zabala. c. In a posterior splint and no weightbearing on the right leg. d. Comfortable, posterior splint appropriately fitting as of 04/24/2019. 4. Coronary artery disease. a. Status post coronary artery bypass x4 in 2008. b. Stable, asymptomatic. 5. Hypertension. 6. Hyperlipidemia. 7. Chronic kidney disease, stage III. 8. Neuropathy of the lower extremity. 9. Severe osteoarthritis of the right knee. a. 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 b. Fall resulting in opened incision and displacement of the total knee replacement requiring washout and repair of the collateral ligaments. c. Complicated by infection requiring re-excision and arthoplasty and 6- week course of IV antibiotics. d. 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 e. On chronic suppressive antibiotics with cephalexin 500 mg b.i.d. 10. Depression, controlled. 11. Deep venous thrombosis of the left lower leg. a. Venous Doppler 11/26/2018 showed DVT. b. On Eliquis 5 mg b.i.d. 12. Confusion. a. Secondary to the effect of the tramadol. b. Resolved as of 04/21/2019. c. No recurrence as of 04/24/2019. He remains at his normal baseline mental status. PLAN: Continue present care. The patient is due to see his orthopedic surgeon , Dr. Zabala on 04/27. Job ID: [id number] MTDD
[2019-04-26] MEDS: Melatonin 3 MG TAB PO SCH (20:46)
[2019-04-26] MEDS: Tamsulosin HCl 0.4 MG CAP PO SCH (20:46)
[2019-04-26] MEDS: PITAVASTATIN CALCIUM 4 MG PO SCH (20:47)
[2019-04-26] MEDS: Fluticasone Propionate Nasal Spray 16 gm Bottle NASAL SCH (21:20)
[2019-04-27] MEDS: Cephalexin 500 MG CAP PO SCH ×2 (08:57→21:46)
[2019-04-27] MEDS: Acetaminophen 500 MG TAB PO PRN ×2 (08:57→22:30)
[2019-04-27] MEDS: Venlafaxine HCl XR 150 MG CAP PO SCH (08:57)
[2019-04-27] MEDS: Polyethylene Glycol 3350 17 GM Packet PO SCH (08:57)
[2019-04-27] MEDS: Aspirin Chewable 81 MG TAB PO SCH (08:57)
[2019-04-27] MEDS: Multivit, Therapeutic 1 TAB PO SCH (08:57)
[2019-04-27] MEDS: Furosemide 20 MG TAB PO SCH (08:57)
[2019-04-27] MEDS: Amlodipine 5 MG TAB PO SCH (08:57)
[2019-04-27] MEDS: Carvedilol 12.5 MG TAB PO SCH ×2 (08:57→17:25)
[2019-04-27] MEDS: Apixaban 5 MG TAB PO SCH ×2 (08:57→21:46)
[2019-04-27] MEDS: Ezetimibe 10 MG TAB PO SCH (08:57)
[2019-04-27] MEDS: Melatonin 3 MG TAB PO SCH (21:45)
[2019-04-27] MEDS: Fluticasone Propionate Nasal Spray 16 gm Bottle NASAL SCH (21:45)
[2019-04-27] MEDS: Tamsulosin HCl 0.4 MG CAP PO SCH (21:46)
[2019-04-27] MEDS: PITAVASTATIN CALCIUM 4 MG PO SCH (21:48)
[2019-04-28] MEDS: Apixaban 5 MG TAB PO SCH ×2 (08:31→21:36)
[2019-04-28] MEDS: Furosemide 20 MG TAB PO SCH (08:31)
[2019-04-28] MEDS: Polyethylene Glycol 3350 17 GM Packet PO SCH (08:31)
[2019-04-28] MEDS: Amlodipine 5 MG TAB PO SCH (08:31)
[2019-04-28] MEDS: Ezetimibe 10 MG TAB PO SCH (08:31)
[2019-04-28] MEDS: Cephalexin 500 MG CAP PO SCH ×2 (08:32→21:36)
[2019-04-28] MEDS: Aspirin Chewable 81 MG TAB PO SCH (08:32)
[2019-04-28] MEDS: Carvedilol 12.5 MG TAB PO SCH ×2 (08:32→17:06)
[2019-04-28] MEDS: Multivit, Therapeutic 1 TAB PO SCH (08:32)
[2019-04-28] MEDS: Venlafaxine HCl XR 150 MG CAP PO SCH (08:32)
--- NOTE | 2019-04-28 08:53 | PRG ---
DATE OF SERVICE: 04/28/2019 SUBJECTIVE: The patient said he is doing good today. He saw the PA working with his orthopedic surgeon, Dr. Zabala yesterday, and he was told he is doing well. Orders been sent back that indicate that he had some little blistering on the lower leg from the fracture and this is all healing and they recommended just dry gauze. They have placed him in a walking boot and have allowed him to toe touch with that right foot. OBJECTIVE: GENERAL: The patient is alert, appears in no distress. VITAL SIGNS: Shows a temperature 97.6, pulse 82, respirations 16, O2 saturation 95%, blood pressure 138/66. LUNGS: Clear. HEART: Regular rate. EXTREMITIES: Right foot, the cast and Kamar and Kerlix were removed. There is bruising on the lower leg that is fading from the previous fracture and surgery around the ankle and lower third of the lower leg. There are areas of skin that had blistered and is all healing and reepithelialized, just has some little superficial eschar on these areas. There is no open wound. No redness. The ankle has just some mild swelling. The toes have good capillary refill. ASSESSMENT: 1. Generalized weakness. a. Secondary to trimalleolar fracture of the right ankle and repair and open reduction and internal fixation on 04/12. b. Left the patient nonweightbearing on the right leg. c. Requires assistance with all his ADLs and ambulation since he is nonweightbearing on the right. d. Improved. Now in a lower leg walking cast and allowed to toe touch when ambulating as of 04/28/2019. 2. Fall from slipping, ground level resulting in trimalleolar fracture of the right ankle. 3. Trimalleolar fracture of the right ankle. a. Secondary to a fall on 04/11. b. Status post open reduction and internal fixation with a Pfeiffer michelle and two screws on 04/12/[address] Ramy Zabala. c. In a posterior splint and no weightbearing on the right leg. d. Improved. Has now been progressed to a lower leg removable walking cast and allowed to toe touch as of 04/28. 4. Coronary artery disease. a. Status post coronary artery bypass x4 in 2008. b. Stable, asymptomatic. 5. Hypertension. 6. Hyperlipidemia. 7. Chronic kidney disease, stage III. 8. Neuropathy of the lower extremity. 9. Severe osteoarthritis of the right knee. a. 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 b. Fall resulting in opened incision and displacement of the total knee replacement requiring washout and repair of the collateral ligaments. c. Complicated by infection requiring re-excision and arthoplasty and 6- week course of IV antibiotics. d. 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 e. On chronic suppressive antibiotics with cephalexin 500 mg b.i.d. 10. Depression, controlled. 11. Deep venous thrombosis of the left lower leg. a. Venous Doppler 11/26/2018 showed DVT. b. On Eliquis 5 mg b.i.d. 12. Confusion. a. Secondary to the effect of the tramadol. b. Resolved as of 04/21/2019. c. No recurrence as of 04/28/2019. He remains in his normal mental status baseline. PLAN: The little areas that had blistered on the lower leg that are all healing and have no open wounds. Will just be protected with a gauze or Kerlix, and then he will wear his removable walking cast and allow to toe touch when ambulating. Continue PT. The patient is due to see his orthopedic surgeon. Follow up in a week. [facility]: [id number] [facility]
--- NOTE | 2019-04-28 08:55 | PRG ---
DATE OF SERVICE: 04/27/2019 SUBJECTIVE: The patient said he is doing better. His right ankle is still sore , but better. He is working with Physical Therapy and hopping. When he ambulates , as he gets tired, he starts putting a little weight on that foot. The patient is scheduled to see his orthopedic surgeon, Dr. Zabala today. OBJECTIVE: GENERAL: The patient is sitting in a chair, alert, appears comfortable, in no distress. VITAL SIGNS: Show a temperature 97.6, pulse 72, respirations 20, O2 saturation 96% on room air, blood pressure 108/68. LUNGS: Clear. HEART: Regular rate. EXTREMITIES: Right lower leg, the patient is wearing a lower leg posterior splint that fits appropriately. Toes showed good capillary refill. ASSESSMENT: 1. Generalized weakness. a. Secondary to trimalleolar fracture of the right ankle and repair and open reduction and internal fixation on 04/12. b. Left the patient nonweightbearing on the right leg. c. Requires assistance with all his ADLs and ambulation since he is nonweightbearing on the right. d. Improved. Remains nonweightbearing on the right leg. Walking by hopping a little further each day as of 04/27/2019. 2. Fall from slipping, ground level resulting in trimalleolar fracture of the right ankle. 3. Trimalleolar fracture of the right ankle. a. Secondary to a fall on 04/11. b. Status post open reduction and internal fixation with a Pfeiffer michelle and two screws on 04/12/[address] Raym Zabala. c. In a posterior splint and no weightbearing on the right leg. d. Comfortable, posterior splint appropriately fitting as of 04/27/2019. 4. Coronary artery disease. a. Status post coronary artery bypass x4 in 2008. b. Stable, asymptomatic. 5. Hypertension. 6. Hyperlipidemia. 7. Chronic kidney disease, stage III. 8. Neuropathy of the lower extremity. 9. Severe osteoarthritis of the right knee. a. 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 b. Fall resulting in opened incision and displacement of the total knee replacement requiring washout and repair of the collateral ligaments. c. Complicated by infection requiring re-excision and arthoplasty and 6- week course of IV antibiotics. d. 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 e. On chronic suppressive antibiotics with cephalexin 500 mg b.i.d. 10. Depression, controlled. 11. Deep venous thrombosis of the left lower leg. a. Venous Doppler 11/26/2018 showed DVT. b. On Eliquis 5 mg b.i.d. 12. Confusion. a. Secondary to the effect of the tramadol. b. Resolved as of 04/21/2019. c. No recurrence as of 04/27/2019. The patient remains at his normal mental status. PLAN: Continue present care. Continue PT/OT. The patient is scheduled to see his orthopedic surgeon, Dr. Zabala today. Job ID: [id number] MTDD
[2019-04-28] MEDS: Acetaminophen 500 MG TAB PO PRN ×2 (09:10→21:41)
[2019-04-28] MEDS: PITAVASTATIN CALCIUM 4 MG PO SCH (21:37)
[2019-04-28] MEDS: Tamsulosin HCl 0.4 MG CAP PO SCH (21:37)
[2019-04-28] MEDS: Fluticasone Propionate Nasal Spray 16 gm Bottle NASAL SCH (21:37)
[2019-04-28] MEDS: Melatonin 3 MG TAB PO SCH (21:37)
[2019-04-29] MEDS: Acetaminophen 500 MG TAB PO PRN ×2 (08:18→20:49)
[2019-04-29] MEDS: Cephalexin 500 MG CAP PO SCH ×2 (08:19→20:33)
[2019-04-29] MEDS: Furosemide 20 MG TAB PO SCH (08:19)
[2019-04-29] MEDS: Multivit, Therapeutic 1 TAB PO SCH (08:19)
[2019-04-29] MEDS: Aspirin Chewable 81 MG TAB PO SCH (08:19)
[2019-04-29] MEDS: Venlafaxine HCl XR 150 MG CAP PO SCH (08:19)
[2019-04-29] MEDS: Apixaban 5 MG TAB PO SCH ×2 (08:19→20:33)
[2019-04-29] MEDS: Amlodipine 5 MG TAB PO SCH (08:19)
[2019-04-29] MEDS: Carvedilol 12.5 MG TAB PO SCH ×2 (08:19→17:03)
[2019-04-29] MEDS: Ezetimibe 10 MG TAB PO SCH (08:19)
[2019-04-29] MEDS: Polyethylene Glycol 3350 17 GM Packet PO SCH (08:20)
--- NOTE | 2019-04-29 11:41 | PRG ---
DATE OF SERVICE: 04/29/2019 SUBJECTIVE: The patient said he is doing pretty good. He did work with Physical Therapy yesterday. He is toe touching with the right foot with the short leg removable walking cast and this went pretty well. OBJECTIVE: GENERAL: The patient is lying in bed, is comfortable, appears in no distress. VITAL SIGNS: His temp is 97.5, pulse 91, respirations 16, O2 saturation 95% on room air, blood pressure 160/75. LUNGS: Clear. HEART: Regular rate. EXTREMITIES: Right lower leg is in a lower leg removable walking cast. ASSESSMENT: 1. Generalized weakness. a. Secondary to trimalleolar fracture of the right ankle and repair and open reduction and internal fixation on 04/12. b. Left the patient nonweightbearing on the right leg. c. Requires assistance with all his ADLs and ambulation since he is nonweightbearing on the right. d. Improved. Now in a lower leg walking cast and allowed to toe touch when ambulating as of 04/28/2019. 2. Fall from slipping, ground level resulting in trimalleolar fracture of the right ankle. 3. Trimalleolar fracture of the right ankle. a. Secondary to a fall on 04/11. b. Status post open reduction and internal fixation with a Pfeiffer michelle and two screws on 04/12/[address] Ramy Zabala. c. In a posterior splint and no weightbearing on the right leg. d. Improved. Has now been progressed to a lower leg removable walking cast and allowed to toe touch as of 04/29/2019. 4. Coronary artery disease. a. Status post coronary artery bypass x4 in 2008. b. Stable, asymptomatic. 5. Hypertension. 6. Hyperlipidemia. 7. Chronic kidney disease, stage III. 8. Neuropathy of the lower extremity. 9. Severe osteoarthritis of the right knee. a. 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 b. Fall resulting in opened incision and displacement of the total knee replacement requiring washout and repair of the collateral ligaments. c. Complicated by infection requiring re-excision and arthoplasty and 6- week course of IV antibiotics. d. 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 e. On chronic suppressive antibiotics with cephalexin 500 mg b.i.d. 10. Depression, controlled. 11. Deep venous thrombosis of the left lower leg. a. Venous Doppler 11/26/2018 showed DVT. b. On Eliquis 5 mg b.i.d. 12. Confusion. a. Secondary to the effect of the tramadol. b. Resolved as of 04/21/2019. c. No recurrence as of 04/29/2019. He remains in his normal mental status baseline. PLAN: Continue present care. Continue PT/OT. Job ID: [id number] [facility]
[2019-04-29] MEDS: Tamsulosin HCl 0.4 MG CAP PO SCH (20:32)
[2019-04-29] MEDS: Melatonin 3 MG TAB PO SCH (20:33)
[2019-04-29] MEDS: Fluticasone Propionate Nasal Spray 16 gm Bottle NASAL SCH (20:34)
[2019-04-29] MEDS: PITAVASTATIN CALCIUM 4 MG PO SCH (20:49)
[2019-04-30] MEDS: Polyethylene Glycol 3350 17 GM Packet PO SCH (09:07)
[2019-04-30] MEDS: Ezetimibe 10 MG TAB PO SCH (09:08)
[2019-04-30] MEDS: Amlodipine 5 MG TAB PO SCH (09:08)
[2019-04-30] MEDS: Furosemide 20 MG TAB PO SCH (09:08)
[2019-04-30] MEDS: Cephalexin 500 MG CAP PO SCH ×2 (09:08→20:54)
[2019-04-30] MEDS: Aspirin Chewable 81 MG TAB PO SCH (09:08)
[2019-04-30] MEDS: Apixaban 5 MG TAB PO SCH ×2 (09:08→20:54)
[2019-04-30] MEDS: Carvedilol 12.5 MG TAB PO SCH ×2 (09:08→17:21)
[2019-04-30] MEDS: Venlafaxine HCl XR 150 MG CAP PO SCH (09:08)
[2019-04-30] MEDS: Multivit, Therapeutic 1 TAB PO SCH (09:08)
--- NOTE | 2019-04-30 12:02 | PRG ---
DATE OF SERVICE: 04/30/2019 SUBJECTIVE: The patient says he is doing good. He had no complaint. He is doing good with therapy with his toe touching. OBJECTIVE: GENERAL: The patient is sitting up in a Julianne chair. He is alert, talkative, appears comfortable, and in no distress. VITAL SIGNS: His temperature is 98.5, pulse 79, respirations 18, O2 saturation 95% on room air, blood pressure was 173/81. He had not yet had his medicines. Last evening pressure 136/75. LUNGS: Clear. HEART: Regular rate. EXTREMITIES: Lower extremities; no edema. The patient is wearing his removable lower leg walking boot on the right leg that fits well. Toes show good capillary refill, no swelling. ASSESSMENT: 1. Generalized weakness. a. Secondary to trimalleolar fracture of the right ankle and repair and open reduction and internal fixation on 04/12. b. Left the patient nonweightbearing on the right leg. c. Requires assistance with all his ADLs and ambulation since he is nonweightbearing on the right. d. Improved. Now in a lower leg walking cast and allowed to toe touch when ambulating as of 04/28/2019. e.Continues to improve as of 04/30/2019. 2. Fall from slipping, ground level resulting in trimalleolar fracture of the right ankle. 3. Trimalleolar fracture of the right ankle. a. Secondary to a fall on 04/11. b. Status post open reduction and internal fixation with a Pfeiffer michelle and two screws on 04/12/[address] Ramy Zabala. c. In a posterior splint and no weightbearing on the right leg. d. Improved. Has now been progressed to a lower leg removable walking cast and allowed to toe touch as of 04/29/2019. 4. Coronary artery disease. a. Status post coronary artery bypass x4 in 2008. b. Stable, asymptomatic. 5. Hypertension. 6. Hyperlipidemia. 7. Chronic kidney disease, stage III. 8. Neuropathy of the lower extremity. 9. Severe osteoarthritis of the right knee. a. 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 b. Fall resulting in opened incision and displacement of the total knee replacement requiring washout and repair of the collateral ligaments. c. Complicated by infection requiring re-excision and arthoplasty and 6- week course of IV antibiotics. d. 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 e. On chronic suppressive antibiotics with cephalexin 500 mg b.i.d. 10. Depression, controlled. 11. Deep venous thrombosis of the left lower leg. a. Venous Doppler 11/26/2018 showed DVT. b. On Eliquis 5 mg b.i.d. 12. Confusion. a. Secondary to the effect of the tramadol. b. Resolved as of 04/21/2019. c. No recurrence as of 04/30/2019. He remains in his normal mental status baseline. PLAN: Continue present care. Continue PT and OT. Job ID: [id number] MTDD
[2019-04-30] MEDS: Acetaminophen 500 MG TAB PO PRN ×2 (13:28→20:52)
[2019-04-30] MEDS: Tamsulosin HCl 0.4 MG CAP PO SCH (20:54)
[2019-04-30] MEDS: Melatonin 3 MG TAB PO SCH (20:54)
[2019-04-30] MEDS: Fluticasone Propionate Nasal Spray 16 gm Bottle NASAL SCH (20:55)
[2019-04-30] MEDS: PITAVASTATIN CALCIUM 4 MG PO SCH (20:55)
[2019-05-01] MEDS: Apixaban 5 MG TAB PO SCH ×2 (08:15→21:03)
[2019-05-01] MEDS: Acetaminophen 500 MG TAB PO PRN ×2 (08:15→21:03)
[2019-05-01] MEDS: Amlodipine 5 MG TAB PO SCH (08:15)
[2019-05-01] MEDS: Polyethylene Glycol 3350 17 GM Packet PO SCH (08:16)
[2019-05-01] MEDS: Ezetimibe 10 MG TAB PO SCH (08:16)
[2019-05-01] MEDS: Multivit, Therapeutic 1 TAB PO SCH (08:16)
[2019-05-01] MEDS: Aspirin Chewable 81 MG TAB PO SCH (08:16)
[2019-05-01] MEDS: Carvedilol 12.5 MG TAB PO SCH ×2 (08:16→17:18)
[2019-05-01] MEDS: Cephalexin 500 MG CAP PO SCH ×2 (08:16→21:03)
[2019-05-01] MEDS: Furosemide 20 MG TAB PO SCH (08:16)
[2019-05-01] MEDS: Venlafaxine HCl XR 150 MG CAP PO SCH (08:16)
[2019-05-01] MEDS: Fluticasone Propionate Nasal Spray 16 gm Bottle NASAL SCH (21:02)
[2019-05-01] MEDS: Tamsulosin HCl 0.4 MG CAP PO SCH (21:02)
[2019-05-01] MEDS: PITAVASTATIN CALCIUM 4 MG PO SCH (21:03)
[2019-05-01] MEDS: Melatonin 3 MG TAB PO SCH (21:03)
[2019-05-02] MEDS: Venlafaxine HCl XR 150 MG CAP PO SCH (08:31)
[2019-05-02] MEDS: Carvedilol 12.5 MG TAB PO SCH ×2 (08:31→17:18)
[2019-05-02] MEDS: Apixaban 5 MG TAB PO SCH ×2 (08:31→20:56)
[2019-05-02] MEDS: Aspirin Chewable 81 MG TAB PO SCH (08:31)
[2019-05-02] MEDS: Furosemide 20 MG TAB PO SCH (08:31)
[2019-05-02] MEDS: Amlodipine 5 MG TAB PO SCH (08:31)
[2019-05-02] MEDS: Polyethylene Glycol 3350 17 GM Packet PO SCH (08:31)
[2019-05-02] MEDS: Multivit, Therapeutic 1 TAB PO SCH (08:31)
[2019-05-02] MEDS: Ezetimibe 10 MG TAB PO SCH (08:31)
[2019-05-02] MEDS: Cephalexin 500 MG CAP PO SCH ×2 (08:31→20:57)
[2019-05-02] MEDS: Fluticasone Propionate Nasal Spray 16 gm Bottle NASAL SCH (20:58)
[2019-05-02] MEDS: Melatonin 3 MG TAB PO SCH (20:59)
[2019-05-02] MEDS: Tamsulosin HCl 0.4 MG CAP PO SCH (20:59)
[2019-05-02] MEDS: Acetaminophen 500 MG TAB PO PRN (21:02)
[2019-05-02] MEDS: PITAVASTATIN CALCIUM 4 MG PO SCH (21:14)
[2019-05-03] MEDS: Carvedilol 12.5 MG TAB PO SCH ×2 (08:08→17:20)
[2019-05-03] MEDS: Aspirin Chewable 81 MG TAB PO SCH (08:08)
[2019-05-03] MEDS: Polyethylene Glycol 3350 17 GM Packet PO SCH (08:08)
[2019-05-03] MEDS: Multivit, Therapeutic 1 TAB PO SCH (08:09)
[2019-05-03] MEDS: Furosemide 20 MG TAB PO SCH (08:09)
[2019-05-03] MEDS: Apixaban 5 MG TAB PO SCH ×2 (08:09→20:41)
[2019-05-03] MEDS: Venlafaxine HCl XR 150 MG CAP PO SCH (08:09)
[2019-05-03] MEDS: Cephalexin 500 MG CAP PO SCH ×2 (08:09→20:41)
[2019-05-03] MEDS: Ezetimibe 10 MG TAB PO SCH (08:09)
[2019-05-03] MEDS: Amlodipine 5 MG TAB PO SCH (08:09)
--- NOTE | 2019-05-03 12:27 | PRG ---
DATE OF SERVICE: 05/03/2019 SUBJECTIVE: The patient is doing better. He did take a pass on Tuesday 05/01 and went home. His family was there to assist him and this went well. He is having no trouble with his leg. He is comfortable in the removable lower leg boot. He is due to go back and see Dr. Zabala, his orthopedic surgeon tomorrow, 05/04. OBJECTIVE: GENERAL: The patient is alert, appears in no distress. VITAL SIGNS: Show temperature 98.5, pulse 85, respirations 18, O2 saturation 96 % on room air, and blood pressure 155/70. LUNGS: Clear. HEART: Regular rate. EXTREMITIES: The patient wearing the lower leg removable walking boot and it fits appropriately. Toes show good capillary refill. No swelling. ASSESSMENT: 1. Generalized weakness. a. Secondary to trimalleolar fracture of the right ankle and repair and open reduction and internal fixation on 04/12. b. Left the patient nonweightbearing on the right leg. c. Requires assistance with all his ADLs and ambulation since he is nonweightbearing on the right. d. Improved. Now in a lower leg walking cast and allowed to toe touch when ambulating as of 04/28/2019. e.Continues to improve as of 05/03/2019. 2. Fall from slipping, ground level resulting in trimalleolar fracture of the right ankle. 3. Trimalleolar fracture of the right ankle. a. Secondary to a fall on 04/11. b. Status post open reduction and internal fixation with a Pfeiffer michelle and two screws on 04/12/[address] Ramy Zabala. c. In a posterior splint and no weightbearing on the right leg. d. Improved. Has now been progressed to a lower leg removable walking cast and allowed to toe touch as of 04/29/2019. 4. Coronary artery disease. a. Status post coronary artery bypass x4 in 2008. b. Stable, asymptomatic. 5. Hypertension. 6. Hyperlipidemia. 7. Chronic kidney disease, stage III. 8. Neuropathy of the lower extremity. 9. Severe osteoarthritis of the right knee. a. 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 b. Fall resulting in opened incision and displacement of the total knee replacement requiring washout and repair of the collateral ligaments. c. Complicated by infection requiring re-excision and arthoplasty and 6- week course of IV antibiotics. d. 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 e. On chronic suppressive antibiotics with cephalexin 500 mg b.i.d. 10. Depression, controlled. 11. Deep venous thrombosis of the left lower leg. a. Venous Doppler 11/26/2018 showed DVT. b. On Eliquis 5 mg b.i.d. 12. Confusion. a. Secondary to the effect of the tramadol. b. Resolved as of 04/21/2019. c. No recurrence as of 05/03/2019. He remains in his normal mental status baseline. PLAN: Continue present care. Continue PT/OT. The patient due to see Dr. Zabala, orthopedic surgeon tomorrow, 05/04. Job ID: [id number] MTDD
[2019-05-03 15:22] VITALS: BMI 26.0
[2019-05-03] MEDS: Acetaminophen 500 MG TAB PO PRN ×2 (17:20→20:40)
[2019-05-03] MEDS: Tamsulosin HCl 0.4 MG CAP PO SCH (20:40)
[2019-05-03] MEDS: Melatonin 3 MG TAB PO SCH (20:41)
[2019-05-03] MEDS: PITAVASTATIN CALCIUM 4 MG PO SCH (20:47)
[2019-05-03] MEDS: Fluticasone Propionate Nasal Spray 16 gm Bottle NASAL SCH (20:47)
[2019-05-04] MEDS: Multivit, Therapeutic 1 TAB PO SCH (08:24)
[2019-05-04] MEDS: Furosemide 20 MG TAB PO SCH (08:24)
[2019-05-04] MEDS: Polyethylene Glycol 3350 17 GM Packet PO SCH (08:24)
[2019-05-04] MEDS: Apixaban 5 MG TAB PO SCH ×2 (08:24→20:29)
[2019-05-04] MEDS: Cephalexin 500 MG CAP PO SCH ×2 (08:24→20:30)
[2019-05-04] MEDS: Amlodipine 5 MG TAB PO SCH (08:25)
[2019-05-04] MEDS: Acetaminophen 500 MG TAB PO PRN ×2 (08:25→20:28)
[2019-05-04] MEDS: Ezetimibe 10 MG TAB PO SCH (08:25)
[2019-05-04] MEDS: Aspirin Chewable 81 MG TAB PO SCH (08:25)
[2019-05-04] MEDS: Venlafaxine HCl XR 150 MG CAP PO SCH (08:25)
[2019-05-04] MEDS: Carvedilol 12.5 MG TAB PO SCH ×2 (08:25→17:06)
--- NOTE | 2019-05-04 10:13 | PRG ---
DATE OF SERVICE: 05/04/2019 SUBJECTIVE: The patient said he is doing well. He is doing good with his physical therapy. He is walking better and further. Usually, he can go about 30 feet with a toe walking and then he tends to increase the weight on that right foot. He said he has no pain. He is walking up to 75 to 100 feet at least 3 to 4 times a day with a rolling walker and supervision. He is transferring with just standby assistance. OBJECTIVE: GENERAL: The patient is sitting up in his Julianne chair just returning from a walk. He is alert, appears very comfortable, in no distress. VITAL SIGNS: His temperature is 97.3, his pulse 73, respirations 16, O2 saturation 97% on room air, blood pressure 166/78. LUNGS: Clear. HEART: Regular rate. EXTREMITIES: Right lower leg has a removable walking cast on this that fits appropriately. ASSESSMENT: 1. Generalized weakness. a. Secondary to trimalleolar fracture of the right ankle and repair and open reduction and internal fixation on 04/12. b. Left the patient nonweightbearing on the right leg. c. Requires assistance with all his ADLs and ambulation since he is nonweightbearing on the right. d. Improved. Now in a lower leg walking cast and allowed to toe touch when ambulating as of 04/28/2019. e. Continues to improve. Walking up to 75 to 100 feet several times a day with a rolling walker and standby assistance. Transferring with standby assistance as of 05/04/2019. 2. Fall from slipping, ground level resulting in trimalleolar fracture of the right ankle. 3. Trimalleolar fracture of the right ankle. a. Secondary to a fall on 04/11. b. Status post open reduction and internal fixation with a Pfeiffer michelle and two screws on 04/12/[address] Ramy Zabala. c. In a posterior splint and no weightbearing on the right leg. d. Improved. Has now been progressed to a lower leg removable walking cast and allowed to toe touch as of 04/29/2019. 4. Coronary artery disease. a. Status post coronary artery bypass x4 in 2008. b. Stable, asymptomatic. 5. Hypertension. 6. Hyperlipidemia. 7. Chronic kidney disease, stage III. 8. Neuropathy of the lower extremity. 9. Severe osteoarthritis of the right knee. a. 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 b. Fall resulting in opened incision and displacement of the total knee replacement requiring washout and repair of the collateral ligaments. c. Complicated by infection requiring re-excision and arthoplasty and 6- week course of IV antibiotics. d. 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 e. On chronic suppressive antibiotics with cephalexin 500 mg b.i.d. 10. Depression, controlled. 11. Deep venous thrombosis of the left lower leg. a. Venous Doppler 11/26/2018 showed DVT. b. On Eliquis 5 mg b.i.d. 12. Confusion. a. Secondary to the effect of the tramadol. b. Resolved as of 04/21/2019. c. No recurrence as of 05/04/2019. He remains in his normal mental status baseline. . PLAN: Continue present care. Continue PT, OT. The patient was due to see Dr. Zabala, his orthopedic surgeon today, but Dr. Zabala has rescheduled this. Job ID: [id number] [facility]
[2019-05-04] MEDS: Melatonin 3 MG TAB PO SCH (20:29)
[2019-05-04] MEDS: Tamsulosin HCl 0.4 MG CAP PO SCH (20:30)
[2019-05-04] MEDS: PITAVASTATIN CALCIUM 4 MG PO SCH (20:31)
[2019-05-04] MEDS: Fluticasone Propionate Nasal Spray 16 gm Bottle NASAL SCH (20:31)
[2019-05-05] MEDS: Furosemide 20 MG TAB PO SCH (08:07)
[2019-05-05] MEDS: Venlafaxine HCl XR 150 MG CAP PO SCH (08:07)
[2019-05-05] MEDS: Apixaban 5 MG TAB PO SCH ×2 (08:07→20:28)
[2019-05-05] MEDS: Multivit, Therapeutic 1 TAB PO SCH (08:07)
[2019-05-05] MEDS: Aspirin Chewable 81 MG TAB PO SCH (08:07)
[2019-05-05] MEDS: Ezetimibe 10 MG TAB PO SCH (08:07)
[2019-05-05] MEDS: Cephalexin 500 MG CAP PO SCH ×2 (08:07→20:28)
[2019-05-05] MEDS: Carvedilol 12.5 MG TAB PO SCH ×2 (08:07→17:02)
[2019-05-05] MEDS: Amlodipine 5 MG TAB PO SCH (08:07)
[2019-05-05] MEDS: Polyethylene Glycol 3350 17 GM Packet PO SCH (08:08)
--- NOTE | 2019-05-05 11:01 | PRG ---
DATE OF SERVICE: 05/05/2019 SUBJECTIVE: The patient is doing very well. He has already been out physical therapy room and doing excellent. His family and he thinks everything set for him to be able to go home tomorrow on 05/06. We will arrange for home health to see him with guardian and continue PT and OT in the home. OBJECTIVE: GENERAL: The patient is sitting up in the chair, just having returned from physical therapy. He is alert, comfortable, in no distress. VITAL SIGNS: His temperature is 97.4, pulse 70, respirations 14, O2 saturation 96% on room air, blood pressure 140/67. LUNGS: Clear. HEART: Regular rate. EXTREMITIES: No edema. The right lower leg has a lower leg walking cast that fits appropriately. ASSESSMENT: 1. Generalized weakness. a. Secondary to trimalleolar fracture of the right ankle and repair and open reduction and internal fixation on 04/12. b. Left the patient nonweightbearing on the right leg. c. Requires assistance with all his ADLs and ambulation since he is nonweightbearing on the right. d. Improved. Now in a lower leg walking cast and allowed to toe touch when ambulating as of 04/28/2019. e. Continues to improve. Walking up to 75 to 100 feet several times a day with a rolling walker and standby assistance. Transferring with standby assistance as of 05/05/2019. 2. Fall from slipping, ground level resulting in trimalleolar fracture of the right ankle. 3. Trimalleolar fracture of the right ankle. a. Secondary to a fall on 04/11. b. Status post open reduction and internal fixation with a Pfeiffer michelle and two screws on 04/12/[address] Ramy Zabala. c. In a posterior splint and no weightbearing on the right leg. d. Improved. Has now been progressed to a lower leg removable walking cast and allowed to toe touch as of 04/29/2019. 4. Coronary artery disease. a. Status post coronary artery bypass x4 in 2008. b. Stable, asymptomatic. 5. Hypertension. 6. Hyperlipidemia. 7. Chronic kidney disease, stage III. 8. Neuropathy of the lower extremity. 9. Severe osteoarthritis of the right knee. a. 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 b. Fall resulting in opened incision and displacement of the total knee replacement requiring washout and repair of the collateral ligaments. c. Complicated by infection requiring re-excision and arthoplasty and 6- week course of IV antibiotics. d. 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 e. On chronic suppressive antibiotics with cephalexin 500 mg b.i.d. 10. Depression, controlled. 11. Deep venous thrombosis of the left lower leg. a. Venous Doppler 11/26/2018 showed DVT. b. On Eliquis 5 mg b.i.d. 12. Confusion. a. Secondary to the effect of the tramadol. b. Resolved as of 04/21/2019. c. No recurrence as of 05/05/2019. He remains in his normal mental status baseline. PLAN: Continue present care. Continue PT arranged. The patient will be discharged tomorrow. Job ID: [id number] MTDD
[2019-05-05] MEDS: Acetaminophen 500 MG TAB PO PRN (20:26)
[2019-05-05] MEDS: Tamsulosin HCl 0.4 MG CAP PO SCH (20:27)
[2019-05-05] MEDS: Melatonin 3 MG TAB PO SCH (20:28)
[2019-05-05] MEDS: Fluticasone Propionate Nasal Spray 16 gm Bottle NASAL SCH (20:29)
[2019-05-05] MEDS: PITAVASTATIN CALCIUM 4 MG PO SCH (20:29)
[2019-05-06] MEDS: Multivit, Therapeutic 1 TAB PO SCH (08:29)
[2019-05-06] MEDS: Apixaban 5 MG TAB PO SCH (08:29)
[2019-05-06] MEDS: Aspirin Chewable 81 MG TAB PO SCH (08:29)
[2019-05-06] MEDS: Amlodipine 5 MG TAB PO SCH (08:29)
[2019-05-06] MEDS: Cephalexin 500 MG CAP PO SCH (08:29)
[2019-05-06] MEDS: Furosemide 20 MG TAB PO SCH (08:29)
[2019-05-06] MEDS: Venlafaxine HCl XR 150 MG CAP PO SCH (08:29)
[2019-05-06] MEDS: Carvedilol 12.5 MG TAB PO SCH (08:29)
[2019-05-06] MEDS: Ezetimibe 10 MG TAB PO SCH (08:29)
[2019-05-06] MEDS: Polyethylene Glycol 3350 17 GM Packet PO SCH (08:30)
[2019-05-06 08:38] VITALS: BP 162/85; TEMP 96
--- NOTE | 2019-05-06 11:31 | DIS ---
DATE OF ADMISSION: 04/14/2019 DATE OF DISCHARGE: 05/06/2019 FINAL DIAGNOSES: 1. Generalized weakness. a. Secondary to trimalleolar fracture of the right ankle and repair and open reduction and internal fixation on 04/12. b. Left the patient nonweightbearing on the right leg. c. Requires assistance with all his ADLs and ambulation since he is nonweightbearing on the right. d. Improved. Now in a lower leg walking cast and allowed to toe touch when ambulating as of 04/28/2019. Continues to improve as of 05/03/2019. e. Ccntinues to improved. Walking up to 150 feet several times a day with a rolling walker and standby assistance. Transferring with standby assistance as of 05/06/2019 2. Fall from slipping, ground level resulting in trimalleolar fracture of the right ankle. 3. Trimalleolar fracture of the right ankle. a. Secondary to a fall on 04/11. b. Status post open reduction and internal fixation with a Pfeiffer michelle and two screws on 04/12/[address] Ramy Zabala. c. In a posterior splint and no weightbearing on the right leg. d. Improved. Has now been progressed to a lower leg removable walking cast and allowed to toe touch as of 04/29/2019. 4. Coronary artery disease. a. Status post coronary artery bypass x4 in 2008. b. Stable, asymptomatic. 5. Hypertension. 6. Hyperlipidemia. 7. Chronic kidney disease, stage III. 8. Neuropathy of the lower extremity. 9. Severe osteoarthritis of the right knee. a. 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 b. Fall resulting in opened incision and displacement of the total knee replacement requiring washout and repair of the collateral ligaments. c. Complicated by infection requiring re-excision and arthoplasty and 6-week course of IV antibiotics. d. 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 e. On chronic suppressive antibiotics with cephalexin 500 mg b.i.d. 10. Depression, controlled. 11. Deep venous thrombosis of the left lower leg. a. Venous Doppler 11/26/2018 showed DVT. b. On Eliquis 5 mg b.i.d. 12. Confusion. a. Secondary to the effect of the tramadol. b. Resolved as of 04/21/2019. c. No recurrence as of 05/06/2019. He remains in his normal mental status baseline.. SUMMARY: The patient is an 84-year-old white male, who has a history of coronary artery disease, for which he has undergone a coronary artery bypass in 2008 and has remained asymptomatic. He has hypertension, stage 3 chronic kidney disease, severe osteoarthritis, for which he had undergone right knee replacement. He also has a history of deep vein thrombosis of the left lower leg in November of 2018, for which he is on Eliquis. The patient lives at home with his and a son and another son who lives close and available to assist with his instrumental ADLs. The patient had a fall from slipping and sustained a trimalleolar closed fracture of the right ankle on 04/11/2019. He was hospitalized at [facility] from 04/11 to 04/12, and underwent an open reduction and internal fixation with a Pfeiffer michelle and 2 screws on 04/12/2019 by orthopedic surgeon, Dr. Ramy Zabala. He was placed in a posterior lower leg splint and was instructed no weightbearing with the right leg. He was left very weak and not able to ambulate due to the nonweightbearing on the right leg. He was transferred to [facility] on 04/14/2019 for his continual care, PT, and OT. During his hospitalization, he made excellent progress. His posterior lower leg splint fit very well and there was no evidence of any circulatory compromise. His toes remained with good color, good capillary refill, and no swelling. The patient's pain initially was managed with Tylenol with backup with tramadol. The patient for several days had been taking several of the tramadol and got very confused. Apparently, this has happened to him before with the tramadol. The tramadol was stopped and the confusion completely resolved, but at this time, his pain was very well managed with just Tylenol alone. The patient saw orthopedic surgeon in followup on 04/29/2019, and he was placed in a removable lower leg walking cast and was allowed to toe touch. With this, he made excellent advancement with his physical therapy and by the time of his discharge on 05/06 , he was ambulating at times up to 150 feet with a rolling walker and only standby assistance. He was able to transfer, which is standby assistance. He and his family both felt that he had improved such that he could be managed at home. He had plenty of support from the family that is close by to assist him. Home health with guardian will be asked to see him and continued in-home PT and OT. His pain had been well managed with Tylenol alone and he had no recurrence of confusion. During his hospitalization, he had no problems with any chest pain or shortness of breath. He continued throughout the hospitalization on the Eliquis due to his history of a DVT of the left leg. The patient was discharged in excellent condition on 05/06/2019. DISPOSITION: DIET: Regular diet. No added salt. ACTIVITIES: Ambulate with the use of a rolling walker with toe touching on the right leg. Should continue to wear the removable lower leg walking cast. MEDICATIONS: 1. Livalo 4 mg at bedtime. 2. Acetaminophen 500 mg 1 to 2 every 6 hours as needed for pain. 3. Amlodipine 5 mg daily. 4. Eliquis 5 mg b.i.d. 5. Aspirin 81 mg daily. 6. Carvedilol 12.5 mg b.i.d. 7. Cephalexin 500 mg b.i.d. 8. Vitamin D3 5000 units at bedtime. 9. Zetia 10 mg daily. 10. Flonase nasal inhaler two sprays in each nostrum daily as needed. 11. Furosemide 20 mg daily. 12. Meclizine 25 mg b.i.d. p.r.n. vertigo. 13. Melatonin 3 mg at bedtime. 14. Multivitamin one a day. 15. Pantoprazole 40 mg daily. 16. MiraLAX 17 g 8 ounces of water daily. 17. Tamsulosin 0.4 mg at bedtime. 18. Venlafaxine XR 150 mg daily. FOLLOWUP: The patient is due to see Dr. Zabala, his orthopedic surgeon on 05/25/2019. The patient should be seen by myself in 2 weeks with CBC and basic metabolic panel. CODE STATUS: Full code. Job ID: [id number] MTDD
== END 2019-05-06 13:50 | disposition home health service (06) | DRG 560 ==
LOC: MADMS 16:02
PROVIDERS: ADMIT Family Medicine; ATTEND Family Medicine
DX: S82.851D Displaced trimalleolar fracture of right lower leg, subsequent encounter for closed fracture with routine healing (principal); I82.502 Chronic embolism and thrombosis of unspecified deep veins of left lower extremity; I25.10 Atherosclerotic heart disease of native coronary artery without angina pectoris; I12.9 Hypertensive chronic kidney disease with stage 1 through stage 4 chronic kidney disease, or unspecified chronic kidney disease; Z96.651 Presence of right artificial knee joint; E78.00 Pure hypercholesterolemia, unspecified; N40.0 Benign prostatic hyperplasia without lower urinary tract symptoms; F32.9 Major depressive disorder, single episode, unspecified; G47.00 Insomnia, unspecified; N18.3 Chronic kidney disease, stage 3 (moderate); K21.9 Gastro-esophageal reflux disease without esophagitis; E11.22 Type 2 diabetes mellitus with diabetic chronic kidney disease; E11.40 Type 2 diabetes mellitus with diabetic neuropathy, unspecified; R41.0 Disorientation, unspecified; T40.4X5A Adverse effect of other synthetic narcotics, initial encounter; Z95.1 Presence of aortocoronary bypass graft; Z90.49 Acquired absence of other specified parts of digestive tract; Z79.82 Long term (current) use of aspirin; Z88.8 Allergy status to other drugs, medicaments and biological substances; Z88.1 Allergy status to other antibiotic agents; Z88.0 Allergy status to penicillin; W01.0XXD Fall on same level from slipping, tripping and stumbling without subsequent striking against object, subsequent encounter
CPT/HCPCS: 36415; 80053; 80061; 84443; 85025; G0283-GP; Q0162

== ENCOUNTER 2020-10-26 14:29 | Outpatient (CLI) | payer MEDICARE ==
[2020-10-27 02:23] LABS: SARS-CoV-2 MS2 Positive; SARS-CoV-2 N Gene Negative; SARS-CoV-2 S Gene Negative; SARS-CoV-2 by NAA Not Detected (NotDetected); SARS-CoV-2 orf1ab Negative
== END 2020-10-26 14:30 | disposition home or self-care (01) ==
LOC: MADLAB 14:29
PROVIDERS: ATTEND Family Medicine
DX: Z20.822 Contact with and (suspected) exposure to COVID-19 (principal)
CPT/HCPCS: 87635; U0003

== ENCOUNTER 2020-11-09 13:02 | Outpatient (CLI) | payer MEDICARE ==
[2020-11-10 05:32] LABS: SARS-CoV-2 PCR by NAA Not Detected (NotDetected)
== END 2020-11-09 13:03 | disposition home or self-care (01) ==
LOC: MADLAB 13:02
PROVIDERS: ATTEND Family Medicine
DX: Z20.822 Contact with and (suspected) exposure to COVID-19 (principal)
CPT/HCPCS: 87635; U0003; U0005

== ENCOUNTER 2021-03-12 11:52 | Emergency (ER) | payer MEDICARE | END 2021-03-12 13:00 | disposition home or self-care (01) | LOC: MADERS 11:52 | DX: M43.6 Torticollis (principal); I10 Essential (primary) hypertension; Z95.1 Presence of aortocoronary bypass graft; E78.5 Hyperlipidemia, unspecified; I25.10 Atherosclerotic heart disease of native coronary artery without angina pectoris; F17.220 Nicotine dependence, chewing tobacco, uncomplicated | CPT/HCPCS: 36415; 72125; 80053; 80061; 84443; 85025 ==

== ENCOUNTER 2021-09-14 21:33 | Emergency (ER) | payer MEDICARE ==
[2021-09-14] MEDS ORDERED: Metoprolol Tartrate 5 MG/5 ML VIAL ONE (21:58)
[2021-09-14] MEDS ORDERED: Aspirin Chewable 81 MG TAB ONE (21:58)
[2021-09-14 22:34] LABS: #Monocytes 0.6 thou/uL (0.11-0.59); #Neutrophils 9.1 thou/uL (1.40-6.50); %Basophils 0.2 % (0.0-1.0); %Lymphocytes 10.5 % (21.0-51.0); %Monocytes 5.7 % (0.0-10.0); %Neutrophils 83.5 % (42.0-75.0); Hemoglobin 13.3 g/dL (14.0-18.0); Hypochromia SLIGHT = 6-15 cells (100X) (0-5/hpf); MDiff Complete? YES; Mean Corpuscular HGB CONC 29.9 g/dL (32.0-36.0); Mean Corpuscular Hemoglobin 29.4 pg (27.0-31.0); Mean Corpuscular Volume 98.2 fL (78.0-98.0); Mean Platelet Volume 6.8 fL (7.4-10.4); Platelet Count 216 thou/uL (130-400); RBC Distribution Width 15.6 % (11.5-14.5); Red Blood Cell (RBC) Count 4.53 mill/uL (4.70-6.10); White Blood Cell (WBC) Count 10.8 thou/uL (4.8-10.8)
[2021-09-14 22:39] LABS: ALT (SGPT) 20 U/L (8-55); AST (SGOT) 21 U/L (5-34); Albumin 3.7 g/dL (3.4-4.8); Alkaline Phosphatase 58 U/L (40-110); Anion Gap 14 mmol/L (10-20); BUN (Urea Nitrogen) 28 mg/dL (8.4-25.7); Bilirubin, Total 0.4 mg/dL (0.2-1.2); Calc. Creatinine Clearance 0 mL/min (70-130); Calcium 8.7 mg/dL (7.8-10.44); Carbon Dioxide 27 mmol/L (23-31); Chloride 102 mmol/L (98-107); Globulin 2.8 g/dL (2.4-3.5); Glucose 405 mg/dL (83-110); Potassium 3.5 mmol/L (3.5-5.1); Protein, Total 6.5 g/dL (5.8-8.1); Sodium 139 mmol/L (136-145)
[2021-09-14] MEDS ORDERED: Insulin Regular 300 UNITS/3 ML VIAL ONE (22:57)
[2021-09-14 23:02] LABS: CKMB 1.2 ng/mL (0-6.6)
== END 2021-09-15 00:43 | disposition short-term general hospital (02) ==
LOC: MADERS 21:33
DX: I21.4 Non-ST elevation (NSTEMI) myocardial infarction (principal); E11.65 Type 2 diabetes mellitus with hyperglycemia; I10 Essential (primary) hypertension; E78.5 Hyperlipidemia, unspecified; I25.10 Atherosclerotic heart disease of native coronary artery without angina pectoris; F17.220 Nicotine dependence, chewing tobacco, uncomplicated; Z79.899 Other long term (current) drug therapy; Z79.82 Long term (current) use of aspirin
CPT/HCPCS: 36416; 71045; 80053; 82553; 83880; 84484; 85025; 93005; 94760; 96374; 96375; J1815

== ENCOUNTER 2022-05-30 13:32 | Emergency (ER) | payer MEDICARE ==
[2022-05-30] MEDS ORDERED: Acetaminophen 500 MG TAB ONE (14:49)
== END 2022-05-30 15:07 | disposition home or self-care (01) ==
LOC: MADERS 13:32
DX: S83.91XA Sprain of unspecified site of right knee, initial encounter (principal); S70.01XA Contusion of right hip, initial encounter; E78.5 Hyperlipidemia, unspecified; I10 Essential (primary) hypertension; F17.220 Nicotine dependence, chewing tobacco, uncomplicated; Z79.899 Other long term (current) drug therapy; W19.XXXA Unspecified fall, initial encounter
CPT/HCPCS: 72170

== ENCOUNTER 2022-09-14 17:00 | Emergency (ER) | payer MEDICARE ==
[2022-09-14] MEDS ORDERED: Ondansetron PF 4 MG/2 ML Vial ONE (17:33)
[2022-09-14] MEDS ORDERED: Ketorolac Tromethamine 30 MG/ML VIAL ONE (17:33)
[2022-09-14 17:47] LABS: #Eosinphils 0.1 thou/uL (0.0-0.7); #Lymphocytes 1.1 thou/uL (1.20-3.40); #Neutrophils 7.8 thou/uL (1.40-6.50); %Basophils 0.5 % (0.0-1.0); %Eosinophils 0.7 % (0.0-10.0); %Lymphocytes 10.8 % (21.0-51.0); %Monocytes 9.7 % (0.0-10.0); %Neutrophils 78.3 % (42.0-75.0); Hemoglobin 12.4 g/dL (14.0-18.0); Mean Corpuscular HGB CONC 31.3 g/dL (32.0-36.0); Mean Corpuscular Hemoglobin 27.8 pg (27.0-31.0); Mean Corpuscular Volume 88.6 fl (78.0-98.0); Platelet Count 216 10x3/uL (130-400); RBC Distribution Width 14.6 % (11.5-14.5); Red Blood Cell (RBC) Count 4.48 mill/uL (4.70-6.10); White Blood Cell (WBC) Count 9.9 10x3/uL (4.8-10.8)
[2022-09-14 18:03] LABS: Anion Gap 15 mmol/L (10-20); BUN (Urea Nitrogen) 29 mg/dL (8.4-25.7); Calc. Creatinine Clearance 0 mL/min (70-130); Calcium 9.2 mg/dL (7.8-10.44); Carbon Dioxide 26 mmol/L (23-31); Chloride 101 mmol/L (98-107); Estimated GFR 29; Glucose 128 mg/dL (83-110); Potassium 3.9 mmol/L (3.5-5.1); Sodium 138 mmol/L (136-145)
[2022-09-14 19:25] LABS: Bilirubin Negative (Negative); Blood, Urine Negative (Negative); Clarity Clear (Clear); Glucose, Urine (Dipstick) Negative (Negative); Ketone, Urine Negative (Negative); Leukocyte Negative (Negative); Nitrite Negative (Negative); Protein, Urine (Dipstick) > or equal to 300 mg/dL (Neg-Trace); Specific Gravity, Urine 1.025 (1.005-1.030); Urobilinogen 0.2 mg/dL (Less than 2)
[2022-09-14 19:33] LABS: RBC/HPF 0-3 HPF (0-3)
[2022-09-14 19:34] LABS: Bacteria/HPF Rare-Few HPF (None Seen); Squamous Epithelial 0-3 HPF (0-3); WBC/HPF 0-3 HPF (0-3)
== END 2022-09-14 20:33 | disposition home or self-care (01) ==
LOC: MADERS 17:00
DX: S32.039A Unspecified fracture of third lumbar vertebra, initial encounter for closed fracture (principal); N28.1 Cyst of kidney, acquired; I25.10 Atherosclerotic heart disease of native coronary artery without angina pectoris; E78.00 Pure hypercholesterolemia, unspecified; I10 Essential (primary) hypertension; F17.220 Nicotine dependence, chewing tobacco, uncomplicated; W17.89XA Other fall from one level to another, initial encounter; Y92.009 Unspecified place in unspecified non-institutional (private) residence as the place of occurrence of the external cause; Z79.01 Long term (current) use of anticoagulants; Z79.899 Other long term (current) drug therapy; Z79.02 Long term (current) use of antithrombotics/antiplatelets
CPT/HCPCS: 36415; 74176; 80048; 81003; 81015; 83605; 85025; 87077; 87086; 87186; 96374; 96375; J1885; J2405

== ENCOUNTER 2022-10-03 14:13 | Inpatient (IN) | payer MEDICARE ==
[2022-10-03] MEDS ORDERED: Amlodipine 5 MG TAB PO SCH (22:00)
[2022-10-03] MEDS ORDERED: Apixaban 2.5 MG TAB PO SCH (22:00)
[2022-10-03] MEDS ORDERED: Calcium Carbonate 500 MG ChewTAB PO SCH (22:00)
[2022-10-03] MEDS ORDERED: Fluticasone Propionate Nasal Spray 16 gm Bottle NASAL SCH (22:00)
[2022-10-03] MEDS ORDERED: Loratadine 10 MG TAB PO SCH (22:00)
[2022-10-03] MEDS ORDERED: Cholecalciferol (Vitamin D3) 5,000 UNITS CAPSULE PO SCH (22:00)
[2022-10-03] MEDS ORDERED: Docusate 100 MG CAP PO SCH (22:00)
[2022-10-03] MEDS ORDERED: Cephalexin 500 MG CAP PO SCH (22:00)
[2022-10-03] MEDS ORDERED: hydrALAZINE 25 MG TAB PO SCH (22:00)
[2022-10-03] MEDS ORDERED: Carvedilol 12.5 MG TAB PO SCH (22:00)
[2022-10-03] MEDS ORDERED: Ezetimibe 10 MG TAB PO SCH (22:00)
[2022-10-03] MEDS ORDERED: Atorvastatin Calcium 10 MG TAB PO SCH (22:00)
[2022-10-03] MEDS ORDERED: Melatonin 3 MG TAB PO SCH (22:00)
[2022-10-03] MEDS ORDERED: predniSONE 1 MG TAB PO SCH (22:00)
[2022-10-03] MEDS ORDERED: Ondansetron ODT 4 MG TAB PO PRN (22:03)
[2022-10-03] MEDS ORDERED: Polyethylene Glycol 3350 17 GM Packet PO PRN (22:03)
[2022-10-03] MEDS ORDERED: cloNIDine 0.1 MG TAB PO PRN (22:03)
[2022-10-03] MEDS ORDERED: Tamsulosin HCl 0.4 MG CAP PO SCH (22:15)
[2022-10-03] MEDS ORDERED: Venlafaxine HCl XR 150 MG CAP PO SCH (22:15)
[2022-10-03] MEDS ORDERED: sulfaSALAzine 500 MG TAB PO SCH (22:15)
[2022-10-03] MEDS ORDERED: Senokot 8.6 MG TAB PO SCH (22:15)
[2022-10-03] MEDS ORDERED: Multivit, Therapeutic 1 TAB PO SCH (22:15)
[2022-10-03] MEDS: GUAIFENESIN SF SOLN 200 MG/10 ML UDCUP PO PRN (23:09)
[2022-10-03 23:59] VITALS: BMI 28.8
[2022-10-04 05:29] LABS: #Lymphocytes 1.7 thou/uL (1.20-3.40); #Monocytes 0.8 thou/uL (0.11-0.59); #Neutrophils 3.1 thou/uL (1.40-6.50); %Basophils 0.8 % (0.0-1.0); %Eosinophils 0.4 % (0.0-10.0); %Lymphocytes 29.5 % (21.0-51.0); %Monocytes 14.8 % (0.0-10.0); %Neutrophils 54.6 % (42.0-75.0); Hemoglobin 9.5 g/dL (14.0-18.0); Mean Corpuscular Hemoglobin 27.7 pg (27.0-31.0); Mean Corpuscular Volume 86.4 fl (78.0-98.0); Mean Platelet Volume 5.3 fL (7.4-10.4); Platelet Count 303 10x3/uL (130-400); RBC Distribution Width 15.5 % (11.5-14.5); Red Blood Cell (RBC) Count 3.44 mill/uL (4.70-6.10); White Blood Cell (WBC) Count 5.6 10x3/uL (4.8-10.8)
[2022-10-04 05:46] LABS: ALT (SGPT) 21 U/L (8-55); AST (SGOT) 33 U/L (5-34); Albumin 2.9 g/dL (3.4-4.8); Alkaline Phosphatase 58 U/L (40-110); Anion Gap 12 mmol/L (10-20); BUN (Urea Nitrogen) 32 mg/dL (8.4-25.7); Bilirubin, Total 0.4 mg/dL (0.2-1.2); Calc. Creatinine Clearance 30 mL/min (70-130); Calcium 8.4 mg/dL (7.8-10.44); Carbon Dioxide 22 mmol/L (23-31); Chloride 110 mmol/L (98-107); Estimated GFR 31; Globulin 3.2 g/dL (2.4-3.5); Glucose 80 mg/dL (83-110); Potassium 3.9 mmol/L (3.5-5.1); Protein, Total 6.1 g/dL (5.8-8.1); Sodium 140 mmol/L (136-145)
[2022-10-04] MEDS: Calcium Carbonate 500 MG ChewTAB PO SCH ×2 (08:56→16:06)
[2022-10-04] MEDS: Lidocaine 5% Patch TD SCH (08:56)
[2022-10-04] MEDS: sulfaSALAzine 500 MG TAB PO SCH ×2 (08:56→21:18)
[2022-10-04] MEDS: Cholecalciferol (Vitamin D3) 5,000 UNITS CAPSULE PO SCH (08:57)
[2022-10-04] MEDS: Multivit, Therapeutic 1 TAB PO SCH (08:57)
[2022-10-04] MEDS: Atorvastatin Calcium 10 MG TAB PO SCH (08:57)
[2022-10-04] MEDS: Cephalexin 500 MG CAP PO SCH ×2 (08:57→21:18)
[2022-10-04] MEDS: Docusate 100 MG CAP PO SCH ×2 (08:57→21:18)
[2022-10-04] MEDS: Venlafaxine HCl XR 150 MG CAP PO SCH (08:58)
[2022-10-04] MEDS: Carvedilol 12.5 MG TAB PO SCH ×2 (08:58→16:05)
[2022-10-04] MEDS: hydrALAZINE 25 MG TAB PO SCH ×3 (08:58→21:20)
[2022-10-04] MEDS: predniSONE 1 MG TAB PO SCH (08:58)
[2022-10-04] MEDS: Fluticasone Propionate Nasal Spray 16 gm Bottle NASAL SCH (08:58)
[2022-10-04] MEDS: Apixaban 2.5 MG TAB PO SCH ×2 (08:58→21:18)
[2022-10-04] MEDS: Ezetimibe 10 MG TAB PO SCH (08:59)
[2022-10-04] MEDS ORDERED: Loratadine 10 MG TAB PO SCH (09:00)
[2022-10-04] MEDS: Senokot 8.6 MG TAB PO SCH (13:56)
[2022-10-04] MEDS: Tamsulosin HCl 0.4 MG CAP PO SCH (16:06)
[2022-10-04] MEDS: Transdermal Patch Removal TOP SCH (20:06)
[2022-10-04] MEDS ORDERED: Melatonin 3 MG TAB PO SCH (21:00)
[2022-10-04] MEDS: Melatonin 3 MG TAB PO SCH (21:18)
[2022-10-04] MEDS: Amlodipine 5 MG TAB PO SCH (21:19)
[2022-10-05] MEDS: Atorvastatin Calcium 10 MG TAB PO SCH (08:52)
[2022-10-05] MEDS: sulfaSALAzine 500 MG TAB PO SCH ×2 (08:52→20:36)
[2022-10-05] MEDS: Cephalexin 500 MG CAP PO SCH ×2 (08:52→20:36)
[2022-10-05] MEDS: Multivit, Therapeutic 1 TAB PO SCH (08:52)
[2022-10-05] MEDS: Docusate 100 MG CAP PO SCH ×2 (08:53→20:36)
[2022-10-05] MEDS: Calcium Carbonate 500 MG ChewTAB PO SCH ×2 (08:53→16:13)
[2022-10-05] MEDS: hydrALAZINE 25 MG TAB PO SCH ×3 (08:53→20:35)
[2022-10-05] MEDS: Apixaban 2.5 MG TAB PO SCH ×2 (08:53→20:35)
[2022-10-05] MEDS: Venlafaxine HCl XR 150 MG CAP PO SCH (08:53)
[2022-10-05] MEDS: Ezetimibe 10 MG TAB PO SCH (08:54)
[2022-10-05] MEDS: predniSONE 1 MG TAB PO SCH (08:54)
[2022-10-05] MEDS: Lidocaine 5% Patch TD SCH (08:54)
[2022-10-05] MEDS: Carvedilol 12.5 MG TAB PO SCH ×2 (08:54→16:12)
[2022-10-05] MEDS: Fluticasone Propionate Nasal Spray 16 gm Bottle NASAL SCH (08:54)
[2022-10-05] MEDS: Cholecalciferol (Vitamin D3) 5,000 UNITS CAPSULE PO SCH (08:55)
[2022-10-05] MEDS: Senokot 8.6 MG TAB PO SCH (12:29)
[2022-10-05] MEDS: Tamsulosin HCl 0.4 MG CAP PO SCH (16:12)
[2022-10-05] MEDS: Melatonin 3 MG TAB PO SCH (20:35)
[2022-10-05] MEDS: Amlodipine 5 MG TAB PO SCH (20:37)
[2022-10-05] MEDS: Transdermal Patch Removal TOP SCH (20:46)
[2022-10-06] MEDS: Acetaminophen 500 MG TAB PO PRN ×2 (02:16→19:55)
[2022-10-06] MEDS: Cephalexin 500 MG CAP PO SCH ×2 (08:39→19:59)
[2022-10-06] MEDS: Venlafaxine HCl XR 150 MG CAP PO SCH (08:39)
[2022-10-06] MEDS: Calcium Carbonate 500 MG ChewTAB PO SCH ×2 (08:39→17:35)
[2022-10-06] MEDS: Apixaban 2.5 MG TAB PO SCH ×2 (08:39→19:59)
[2022-10-06] MEDS: Cholecalciferol (Vitamin D3) 5,000 UNITS CAPSULE PO SCH (08:39)
[2022-10-06] MEDS: Carvedilol 12.5 MG TAB PO SCH ×2 (08:39→17:35)
[2022-10-06] MEDS: Docusate 100 MG CAP PO SCH (08:39)
[2022-10-06] MEDS: hydrALAZINE 25 MG TAB PO SCH ×3 (08:40→19:59)
[2022-10-06] MEDS: predniSONE 1 MG TAB PO SCH (08:40)
[2022-10-06] MEDS: Ezetimibe 10 MG TAB PO SCH (08:40)
[2022-10-06] MEDS: Multivit, Therapeutic 1 TAB PO SCH (08:40)
[2022-10-06] MEDS: sulfaSALAzine 500 MG TAB PO SCH ×2 (08:40→20:00)
[2022-10-06] MEDS: Atorvastatin Calcium 10 MG TAB PO SCH (08:40)
[2022-10-06] MEDS: Fluticasone Propionate Nasal Spray 16 gm Bottle NASAL SCH (08:41)
[2022-10-06] MEDS: Lidocaine 5% Patch TD SCH (08:41)
[2022-10-06] MEDS: Senokot 8.6 MG TAB PO SCH (13:03)
[2022-10-06] MEDS: Tamsulosin HCl 0.4 MG CAP PO SCH (17:35)
[2022-10-06] MEDS: Melatonin 3 MG TAB PO SCH (19:59)
[2022-10-06] MEDS: Amlodipine 5 MG TAB PO SCH (19:59)
[2022-10-06] MEDS: Transdermal Patch Removal TOP SCH (20:07)
[2022-10-07] MEDS ORDERED: FLU VACC QS2022-23(65YR UP)/PF 240 MCG/0.7 ML SYRINGE IM ONE (01:00)
[2022-10-07] MEDS: Docusate 100 MG CAP PO SCH ×3 (01:37→20:39)
[2022-10-07] MEDS: Cephalexin 500 MG CAP PO SCH ×2 (08:58→20:40)
[2022-10-07] MEDS: Carvedilol 12.5 MG TAB PO SCH ×2 (08:58→17:08)
[2022-10-07] MEDS: Cholecalciferol (Vitamin D3) 5,000 UNITS CAPSULE PO SCH (08:58)
[2022-10-07] MEDS: sulfaSALAzine 500 MG TAB PO SCH ×2 (08:58→20:39)
[2022-10-07] MEDS: Multivit, Therapeutic 1 TAB PO SCH (08:58)
[2022-10-07] MEDS: Venlafaxine HCl XR 150 MG CAP PO SCH (08:58)
[2022-10-07] MEDS: Calcium Carbonate 500 MG ChewTAB PO SCH ×2 (08:58→17:09)
[2022-10-07] MEDS: Atorvastatin Calcium 10 MG TAB PO SCH (08:58)
[2022-10-07] MEDS: Ezetimibe 10 MG TAB PO SCH (08:58)
[2022-10-07] MEDS: Lidocaine 5% Patch TD SCH (08:59)
[2022-10-07] MEDS: predniSONE 1 MG TAB PO SCH (08:59)
[2022-10-07] MEDS: hydrALAZINE 25 MG TAB PO SCH ×3 (08:59→20:39)
[2022-10-07] MEDS: Apixaban 2.5 MG TAB PO SCH ×2 (08:59→20:39)
[2022-10-07] MEDS: Fluticasone Propionate Nasal Spray 16 gm Bottle NASAL SCH (09:00)
[2022-10-07] MEDS: Senokot 8.6 MG TAB PO SCH (12:49)
[2022-10-07] MEDS: Tamsulosin HCl 0.4 MG CAP PO SCH (17:08)
[2022-10-07] MEDS: Amlodipine 5 MG TAB PO SCH (20:39)
[2022-10-07] MEDS: Melatonin 3 MG TAB PO SCH (20:39)
[2022-10-07] MEDS: Transdermal Patch Removal TOP SCH (20:41)
[2022-10-08] MEDS: Multivit, Therapeutic 1 TAB PO SCH (09:01)
[2022-10-08] MEDS: sulfaSALAzine 500 MG TAB PO SCH ×2 (09:01→21:14)
[2022-10-08] MEDS: Venlafaxine HCl XR 150 MG CAP PO SCH (09:01)
[2022-10-08] MEDS: Docusate 100 MG CAP PO SCH ×2 (09:01→21:15)
[2022-10-08] MEDS: hydrALAZINE 25 MG TAB PO SCH ×3 (09:01→21:16)
[2022-10-08] MEDS: Carvedilol 12.5 MG TAB PO SCH ×2 (09:01→17:14)
[2022-10-08] MEDS: Atorvastatin Calcium 10 MG TAB PO SCH (09:02)
[2022-10-08] MEDS: Apixaban 2.5 MG TAB PO SCH ×2 (09:02→21:16)
[2022-10-08] MEDS: Cholecalciferol (Vitamin D3) 5,000 UNITS CAPSULE PO SCH (09:02)
[2022-10-08] MEDS: Ezetimibe 10 MG TAB PO SCH (09:02)
[2022-10-08] MEDS: Cephalexin 500 MG CAP PO SCH ×2 (09:02→21:15)
[2022-10-08] MEDS: predniSONE 1 MG TAB PO SCH (09:02)
[2022-10-08] MEDS: Lidocaine 5% Patch TD SCH (09:04)
[2022-10-08] MEDS: Calcium Carbonate 500 MG ChewTAB PO SCH ×2 (09:05→17:13)
[2022-10-08] MEDS: Fluticasone Propionate Nasal Spray 16 gm Bottle NASAL SCH (09:06)
[2022-10-08] MEDS ORDERED: Nitroglycerin 0.4 MG TAB (25 Tab Bottle) ONE (10:06)
[2022-10-08] MEDS ORDERED: Nitroglycerin 0.4 MG TAB (25 Tab Bottle) SL SCH (10:30)
[2022-10-08 11:30] LABS: Troponin I 0.069 ng/mL (< 0.028)
[2022-10-08] MEDS: Senokot 8.6 MG TAB PO SCH (12:10)
[2022-10-08] MEDS: Acetaminophen 500 MG TAB PO PRN (17:13)
[2022-10-08] MEDS: Tamsulosin HCl 0.4 MG CAP PO SCH (17:14)
[2022-10-08] MEDS: Amlodipine 5 MG TAB PO SCH (21:15)
[2022-10-08] MEDS: Melatonin 3 MG TAB PO SCH (21:17)
[2022-10-08] MEDS: Transdermal Patch Removal TOP SCH (21:18)
[2022-10-08 22:30] LABS: Troponin I 0.332 ng/mL (< 0.028)
[2022-10-09] MEDS: Acetaminophen 500 MG TAB PO PRN ×2 (07:00→22:41)
[2022-10-09] MEDS: Venlafaxine HCl XR 150 MG CAP PO SCH (08:47)
[2022-10-09] MEDS: Lidocaine 5% Patch TD SCH (08:47)
[2022-10-09] MEDS: Carvedilol 12.5 MG TAB PO SCH ×2 (08:47→17:01)
[2022-10-09] MEDS: Atorvastatin Calcium 10 MG TAB PO SCH (08:47)
[2022-10-09] MEDS: Multivit, Therapeutic 1 TAB PO SCH (08:47)
[2022-10-09] MEDS: Docusate 100 MG CAP PO SCH ×2 (08:47→22:38)
[2022-10-09] MEDS: Cholecalciferol (Vitamin D3) 5,000 UNITS CAPSULE PO SCH (08:48)
[2022-10-09] MEDS: Calcium Carbonate 500 MG ChewTAB PO SCH ×2 (08:48→17:01)
[2022-10-09] MEDS: Apixaban 2.5 MG TAB PO SCH ×2 (08:48→22:39)
[2022-10-09] MEDS: Cephalexin 500 MG CAP PO SCH ×2 (08:48→22:39)
[2022-10-09] MEDS: sulfaSALAzine 500 MG TAB PO SCH ×2 (08:48→22:37)
[2022-10-09] MEDS: hydrALAZINE 25 MG TAB PO SCH ×3 (08:48→22:39)
[2022-10-09] MEDS: Ezetimibe 10 MG TAB PO SCH (08:48)
[2022-10-09] MEDS: predniSONE 1 MG TAB PO SCH (08:48)
[2022-10-09] MEDS: Fluticasone Propionate Nasal Spray 16 gm Bottle NASAL SCH (08:49)
[2022-10-09] MEDS: Senokot 8.6 MG TAB PO SCH (12:32)
[2022-10-09] MEDS: Tamsulosin HCl 0.4 MG CAP PO SCH (17:04)
[2022-10-09] MEDS: Melatonin 3 MG TAB PO SCH (22:38)
[2022-10-09] MEDS: Amlodipine 5 MG TAB PO SCH (22:38)
[2022-10-09] MEDS: Transdermal Patch Removal TOP SCH (22:39)
[2022-10-10] MEDS: Multivit, Therapeutic 1 TAB PO SCH (09:21)
[2022-10-10] MEDS: Carvedilol 12.5 MG TAB PO SCH ×2 (09:21→17:09)
[2022-10-10] MEDS: Atorvastatin Calcium 10 MG TAB PO SCH (09:21)
[2022-10-10] MEDS: Apixaban 2.5 MG TAB PO SCH ×2 (09:21→21:22)
[2022-10-10] MEDS: Calcium Carbonate 500 MG ChewTAB PO SCH ×2 (09:21→17:09)
[2022-10-10] MEDS: predniSONE 1 MG TAB PO SCH (09:21)
[2022-10-10] MEDS: Venlafaxine HCl XR 150 MG CAP PO SCH (09:21)
[2022-10-10] MEDS: sulfaSALAzine 500 MG TAB PO SCH ×2 (09:21→21:21)
[2022-10-10] MEDS: Cholecalciferol (Vitamin D3) 5,000 UNITS CAPSULE PO SCH (09:21)
[2022-10-10] MEDS: hydrALAZINE 25 MG TAB PO SCH ×3 (09:21→21:22)
[2022-10-10] MEDS: Cephalexin 500 MG CAP PO SCH ×2 (09:21→21:23)
[2022-10-10] MEDS: Ezetimibe 10 MG TAB PO SCH (09:21)
[2022-10-10] MEDS: Lidocaine 5% Patch TD SCH (09:22)
[2022-10-10] MEDS: Docusate 100 MG CAP PO SCH (09:22)
[2022-10-10] MEDS: Fluticasone Propionate Nasal Spray 16 gm Bottle NASAL SCH (09:23)
[2022-10-10] MEDS: Senokot 8.6 MG TAB PO SCH (12:07)
[2022-10-10] MEDS: Acetaminophen 500 MG TAB PO PRN (14:59)
[2022-10-10] MEDS: Tamsulosin HCl 0.4 MG CAP PO SCH (17:10)
[2022-10-10] MEDS: Amlodipine 5 MG TAB PO SCH (21:22)
[2022-10-10] MEDS: Transdermal Patch Removal TOP SCH (21:23)
[2022-10-10] MEDS: Melatonin 3 MG TAB PO SCH (21:23)
[2022-10-10] MEDS: GUAIFENESIN SF SOLN 200 MG/10 ML UDCUP PO PRN (21:24)
[2022-10-11 05:34] LABS: Hemoglobin 9.9 g/dL (14.0-18.0); Platelet Count 289 10x3/uL (130-400)
[2022-10-11] MEDS: Atorvastatin Calcium 10 MG TAB PO SCH (08:06)
[2022-10-11] MEDS: Acetaminophen 500 MG TAB PO PRN ×2 (08:06→16:43)
[2022-10-11] MEDS: Ezetimibe 10 MG TAB PO SCH (08:07)
[2022-10-11] MEDS: Calcium Carbonate 500 MG ChewTAB PO SCH ×2 (08:10→16:42)
[2022-10-11] MEDS: predniSONE 1 MG TAB PO SCH (08:10)
[2022-10-11] MEDS: Cephalexin 500 MG CAP PO SCH ×2 (08:10→20:29)
[2022-10-11] MEDS: Venlafaxine HCl XR 150 MG CAP PO SCH (08:11)
[2022-10-11] MEDS: sulfaSALAzine 500 MG TAB PO SCH ×2 (08:11→20:29)
[2022-10-11] MEDS: Cholecalciferol (Vitamin D3) 5,000 UNITS CAPSULE PO SCH (08:12)
[2022-10-11] MEDS: GUAIFENESIN SF SOLN 200 MG/10 ML UDCUP PO PRN ×2 (08:12→16:41)
[2022-10-11] MEDS: Apixaban 2.5 MG TAB PO SCH ×2 (08:12→20:30)
[2022-10-11] MEDS: Lidocaine 5% Patch TD SCH (08:12)
[2022-10-11] MEDS: Multivit, Therapeutic 1 TAB PO SCH (08:12)
[2022-10-11] MEDS: Fluticasone Propionate Nasal Spray 16 gm Bottle NASAL SCH (08:16)
[2022-10-11] MEDS: hydrALAZINE 25 MG TAB PO SCH ×3 (10:01→20:30)
[2022-10-11] MEDS: Carvedilol 12.5 MG TAB PO SCH ×2 (10:01→16:42)
[2022-10-11] MEDS: Tamsulosin HCl 0.4 MG CAP PO SCH (16:42)
[2022-10-11] MEDS: Nitroglycerin 0.4 MG TAB (25 Tab Bottle) SL PRN (16:50)
[2022-10-11] MEDS: Amlodipine 5 MG TAB PO SCH (20:29)
[2022-10-11] MEDS: Melatonin 3 MG TAB PO SCH (20:30)
[2022-10-11] MEDS: Transdermal Patch Removal TOP SCH (20:31)
[2022-10-12] MEDS: Acetaminophen 500 MG TAB PO PRN (04:22)
[2022-10-12] MEDS: Nitroglycerin 0.4 MG TAB (25 Tab Bottle) SL PRN (04:28)
[2022-10-12] MEDS: Carvedilol 12.5 MG TAB PO SCH ×2 (08:31→17:01)
[2022-10-12] MEDS: sulfaSALAzine 500 MG TAB PO SCH ×2 (08:31→20:30)
[2022-10-12] MEDS: Ezetimibe 10 MG TAB PO SCH (08:31)
[2022-10-12] MEDS: Venlafaxine HCl XR 150 MG CAP PO SCH (08:31)
[2022-10-12] MEDS: Cholecalciferol (Vitamin D3) 5,000 UNITS CAPSULE PO SCH (08:31)
[2022-10-12] MEDS: Calcium Carbonate 500 MG ChewTAB PO SCH ×2 (08:31→17:04)
[2022-10-12] MEDS: Cephalexin 500 MG CAP PO SCH ×2 (08:32→20:29)
[2022-10-12] MEDS: Atorvastatin Calcium 10 MG TAB PO SCH (08:32)
[2022-10-12] MEDS: predniSONE 1 MG TAB PO SCH (08:32)
[2022-10-12] MEDS: Lidocaine 5% Patch TD SCH (08:32)
[2022-10-12] MEDS: Fluticasone Propionate Nasal Spray 16 gm Bottle NASAL SCH (08:32)
[2022-10-12] MEDS: Multivit, Therapeutic 1 TAB PO SCH (08:32)
[2022-10-12] MEDS: hydrALAZINE 25 MG TAB PO SCH ×3 (08:32→20:29)
[2022-10-12] MEDS: Apixaban 2.5 MG TAB PO SCH ×2 (08:32→20:30)
[2022-10-12] MEDS: Tamsulosin HCl 0.4 MG CAP PO SCH (17:01)
[2022-10-12 19:35] VITALS: BP 158/80; TEMP 97.3
[2022-10-12] MEDS: Melatonin 3 MG TAB PO SCH (20:29)
[2022-10-12] MEDS: Amlodipine 5 MG TAB PO SCH (20:30)
[2022-10-12] MEDS: Transdermal Patch Removal TOP SCH (20:49)
[2022-10-13] MEDS: Acetaminophen 500 MG TAB PO PRN (00:42)
[2022-10-13] MEDS: Nitroglycerin 0.4 MG TAB (25 Tab Bottle) SL PRN ×4 (05:09→08:07)
[2022-10-13] MEDS: Carvedilol 12.5 MG TAB PO SCH (08:12)
[2022-10-13] MEDS: Calcium Carbonate 500 MG ChewTAB PO SCH (08:12)
[2022-10-13] MEDS: Apixaban 2.5 MG TAB PO SCH (08:37)
[2022-10-13 09:14] LABS: CKMB 2.8 ng/mL (0-6.6)
[2022-10-13 09:19] LABS: Anisocytosis SLIGHT = 6-15 cells (100X) (0-5/hpf); Band 3 % (5-11); Hemoglobin 9.3 g/dL (14.0-18.0); Hypochromia SLIGHT = 6-15 cells (100X) (0-5/hpf); INR-International Normal Ratio 1.2; Lymphocytes 26 % (21-51); MDiff Complete? YES; Mean Corpuscular HGB CONC 31.7 g/dL (32.0-36.0); Mean Corpuscular Hemoglobin 27.7 pg (27.0-31.0); Mean Corpuscular Volume 87.6 fl (78.0-98.0); Mean Platelet Volume 6.2 fL (7.4-10.4); Monocytes 14 % (0-10); Neutrophil 57 % (42-75); Platelet Count 258 10x3/uL (130-400); Platelet Morphology Comment Appears Adequate; RBC Distribution Width 16.6 % (11.5-14.5); Red Blood Cell (RBC) Count 3.37 mill/uL (4.70-6.10); White Blood Cell (WBC) Count 5.6 10x3/uL (4.8-10.8)
[2022-10-13 09:20] LABS: PTT 45.8 sec (22.9-36.1)
[2022-10-13 09:27] LABS: Troponin I 2.465 ng/mL (< 0.028)
[2022-10-13] MEDS: Cholecalciferol (Vitamin D3) 5,000 UNITS CAPSULE PO SCH (10:54)
[2022-10-13] MEDS: Cephalexin 500 MG CAP PO SCH (10:54)
[2022-10-13] MEDS: Ezetimibe 10 MG TAB PO SCH (10:54)
[2022-10-13] MEDS: Atorvastatin Calcium 10 MG TAB PO SCH (10:54)
[2022-10-13] MEDS: Fluticasone Propionate Nasal Spray 16 gm Bottle NASAL SCH (10:54)
[2022-10-13] MEDS: hydrALAZINE 25 MG TAB PO SCH (10:54)
[2022-10-13] MEDS: Venlafaxine HCl XR 150 MG CAP PO SCH (10:55)
[2022-10-13] MEDS: Multivit, Therapeutic 1 TAB PO SCH (10:55)
[2022-10-13] MEDS: predniSONE 1 MG TAB PO SCH (10:55)
[2022-10-13] MEDS: sulfaSALAzine 500 MG TAB PO SCH (10:55)
[2022-10-13] MEDS: Lidocaine 5% Patch TD SCH (10:55)
== END 2022-10-13 09:35 | disposition short-term general hospital (02) | DRG 559 ==
LOC: MADMS 19:32
PROVIDERS: ADMIT Family Medicine; ATTEND Family Medicine
PROC: 8E0ZXY6 Isolation (ICD-10-PCS; principal; 2022-10-03)
DX: S32.038D Other fracture of third lumbar vertebra, subsequent encounter for fracture with routine healing (principal); U07.1 COVID-19; I24.9 Acute ischemic heart disease, unspecified; S32.048D Other fracture of fourth lumbar vertebra, subsequent encounter for fracture with routine healing; I25.10 Atherosclerotic heart disease of native coronary artery without angina pectoris; Z66 Do not resuscitate; E78.5 Hyperlipidemia, unspecified; I12.9 Hypertensive chronic kidney disease with stage 1 through stage 4 chronic kidney disease, or unspecified chronic kidney disease; R53.1 Weakness; R53.81 Other malaise; N18.9 Chronic kidney disease, unspecified; G62.9 Polyneuropathy, unspecified; Z96.651 Presence of right artificial knee joint; F32.A Depression, unspecified; N40.0 Benign prostatic hyperplasia without lower urinary tract symptoms; Z79.899 Other long term (current) drug therapy; Z79.01 Long term (current) use of anticoagulants; Z95.1 Presence of aortocoronary bypass graft; Z98.890 Other specified postprocedural states; Z95.5 Presence of coronary angioplasty implant and graft; Z88.6 Allergy status to analgesic agent; Z88.8 Allergy status to other drugs, medicaments and biological substances; Z88.0 Allergy status to penicillin; Z86.718 Personal history of other venous thrombosis and embolism
CPT/HCPCS: 36415; 80053; 82550; 82553; 84484; 85014; 85018; 85025; 85049; 85610; 85730; J7512

== ENCOUNTER 2022-10-13 09:31 | Emergency (ER) | payer MEDICARE ==
[2022-10-13] MEDS ORDERED: Aspirin Chewable 81 MG TAB ONE (09:55)
[2022-10-13] MEDS ORDERED: Nitroglycerin 2% Ointment 1 INCH/1 GM Packet ONE (09:55)
[2022-10-13 10:13] LABS: ALT (SGPT) 13 U/L (8-55); AST (SGOT) 27 U/L (5-34); Alkaline Phosphatase 63 U/L (40-110); Anion Gap 17 mmol/L (10-20); BUN (Urea Nitrogen) 30 mg/dL (8.4-25.7); Bilirubin, Total 0.5 mg/dL (0.2-1.2); Calc. Creatinine Clearance 0 mL/min (70-130); Calcium 8.6 mg/dL (7.8-10.44); Carbon Dioxide 21 mmol/L (23-31); Chloride 105 mmol/L (98-107); Estimated GFR 23; Globulin 3.8 g/dL (2.4-3.5); Glucose 106 mg/dL (83-110); Potassium 3.6 mmol/L (3.5-5.1); Protein, Total 6.8 g/dL (5.8-8.1); Sodium 139 mmol/L (136-145)
== END 2022-10-13 10:30 | disposition short-term general hospital (02) ==
LOC: MADERS 09:31
DX: I21.4 Non-ST elevation (NSTEMI) myocardial infarction (principal); R77.8 Other specified abnormalities of plasma proteins; I25.10 Atherosclerotic heart disease of native coronary artery without angina pectoris; E78.00 Pure hypercholesterolemia, unspecified; I12.9 Hypertensive chronic kidney disease with stage 1 through stage 4 chronic kidney disease, or unspecified chronic kidney disease; N18.9 Chronic kidney disease, unspecified; F17.220 Nicotine dependence, chewing tobacco, uncomplicated
CPT/HCPCS: 71045; 80053

== ENCOUNTER 2022-10-17 20:55 | Inpatient (IN) | payer MEDICARE ==
[2022-10-17 21:59] VITALS: BMI 22.9
[2022-10-17] MEDS ORDERED: Ondansetron ODT 4 MG TAB PO PRN (23:26)
[2022-10-18] MEDS: Acetaminophen 325 MG TAB PO PRN ×3 (04:30→16:37)
[2022-10-18] MEDS ORDERED: Lansoprazole 3 MG/ML ORAL SUSPENSION PO SCH (07:30)
[2022-10-18] MEDS: Docusate 100 MG CAP PO SCH ×2 (08:31→21:22)
[2022-10-18] MEDS: Calcium Carbonate 500 MG TAB PO SCH ×2 (08:31→16:37)
[2022-10-18] MEDS: Ezetimibe 10 MG TAB PO SCH (08:31)
[2022-10-18] MEDS: Aspirin Chewable 81 MG TAB PO SCH (08:31)
[2022-10-18] MEDS: Carvedilol 6.25 MG TAB PO SCH ×2 (08:31→16:38)
[2022-10-18] MEDS: sulfaSALAzine 500 MG TAB PO SCH ×2 (08:31→21:22)
[2022-10-18] MEDS: Apixaban 2.5 MG TAB PO SCH ×2 (08:32→21:22)
[2022-10-18] MEDS: Cholecalciferol 1,000 UNITS (25 MCG) TAB PO SCH (08:32)
[2022-10-18] MEDS: Clopidogrel Bisulfate 75 MG TAB PO SCH (08:32)
[2022-10-18] MEDS: Loratadine 10 MG TAB PO SCH (08:32)
[2022-10-18] MEDS: Fluticasone Propionate Nasal Spray 16 gm Bottle NASAL SCH (08:35)
[2022-10-18] MEDS ORDERED: FLU VACC QS2022-23(65YR UP)/PF 240 MCG/0.7 ML SYRINGE IM ONE (09:00)
[2022-10-18] MEDS ORDERED: Lantiseptic Ointment 130 GM JAR TOP PRN (13:52)
[2022-10-18] MEDS: Folic Acid/Vit B Comp W-C PO SCH (21:21)
[2022-10-18] MEDS: Atorvastatin Calcium 40 MG TAB PO SCH (21:22)
[2022-10-18] MEDS: Melatonin 3 MG TAB PO SCH (21:22)
[2022-10-18] MEDS: Lantiseptic Ointment 130 GM JAR TOP SCH (21:22)
[2022-10-18] MEDS: Tamsulosin HCl 0.4 MG CAP PO SCH (21:29)
[2022-10-19] MEDS ORDERED: Nitroglycerin 0.4 MG TAB (25 Tab Bottle) SL SCH (07:15)
[2022-10-19] MEDS: Fluticasone Propionate Nasal Spray 16 gm Bottle NASAL SCH (08:14)
[2022-10-19] MEDS: Cholecalciferol 1,000 UNITS (25 MCG) TAB PO SCH (08:15)
[2022-10-19] MEDS: sulfaSALAzine 500 MG TAB PO SCH ×2 (08:16→21:08)
[2022-10-19] MEDS: Loratadine 10 MG TAB PO SCH (08:16)
[2022-10-19] MEDS: Clopidogrel Bisulfate 75 MG TAB PO SCH (08:16)
[2022-10-19] MEDS: Ezetimibe 10 MG TAB PO SCH (08:16)
[2022-10-19] MEDS: Aspirin Chewable 81 MG TAB PO SCH (08:16)
[2022-10-19] MEDS: Acetaminophen 325 MG TAB PO PRN (08:17)
[2022-10-19] MEDS: Calcium Carbonate 500 MG TAB PO SCH ×2 (08:17→17:06)
[2022-10-19] MEDS: Docusate 100 MG CAP PO SCH ×2 (08:17→21:09)
[2022-10-19] MEDS: Apixaban 2.5 MG TAB PO SCH ×2 (08:17→21:08)
[2022-10-19] MEDS: Carvedilol 6.25 MG TAB PO SCH ×2 (08:23→17:06)
[2022-10-19] MEDS: Lantiseptic Ointment 130 GM JAR TOP SCH ×2 (08:24→21:30)
[2022-10-19] MEDS: Benzonatate 100 MG CAP PO SCH ×3 (08:27→21:08)
[2022-10-19] MEDS: Tamsulosin HCl 0.4 MG CAP PO SCH (21:08)
[2022-10-19] MEDS: Folic Acid/Vit B Comp W-C PO SCH (21:08)
[2022-10-19] MEDS: Atorvastatin Calcium 40 MG TAB PO SCH (21:08)
[2022-10-19] MEDS: Melatonin 3 MG TAB PO SCH (21:09)
[2022-10-20] MEDS: Nitroglycerin 0.4 MG TAB (25 Tab Bottle) SL PRN ×2 (03:40→05:13)
[2022-10-20] MEDS: Cholecalciferol 1,000 UNITS (25 MCG) TAB PO SCH (08:37)
[2022-10-20] MEDS: Acetaminophen 325 MG TAB PO PRN (08:38)
[2022-10-20] MEDS: Apixaban 2.5 MG TAB PO SCH ×2 (08:38→22:23)
[2022-10-20] MEDS: sulfaSALAzine 500 MG TAB PO SCH ×2 (08:38→22:23)
[2022-10-20] MEDS: Benzonatate 100 MG CAP PO SCH ×3 (08:38→22:23)
[2022-10-20] MEDS: Fluticasone Propionate Nasal Spray 16 gm Bottle NASAL SCH (08:38)
[2022-10-20] MEDS: Ezetimibe 10 MG TAB PO SCH (08:38)
[2022-10-20] MEDS: Clopidogrel Bisulfate 75 MG TAB PO SCH (08:38)
[2022-10-20] MEDS: Docusate 100 MG CAP PO SCH ×2 (08:38→22:24)
[2022-10-20] MEDS: Calcium Carbonate 500 MG TAB PO SCH ×2 (08:38→16:57)
[2022-10-20] MEDS: Carvedilol 6.25 MG TAB PO SCH ×2 (08:38→16:57)
[2022-10-20] MEDS: Loratadine 10 MG TAB PO SCH (08:38)
[2022-10-20] MEDS: Lantiseptic Ointment 130 GM JAR TOP SCH ×2 (08:41→22:24)
[2022-10-20] MEDS: Aspirin Chewable 81 MG TAB PO SCH (08:46)
[2022-10-20] MEDS: Atorvastatin Calcium 40 MG TAB PO SCH (22:23)
[2022-10-20] MEDS: Tamsulosin HCl 0.4 MG CAP PO SCH (22:24)
[2022-10-20] MEDS: Folic Acid/Vit B Comp W-C PO SCH (22:24)
[2022-10-20] MEDS: Melatonin 3 MG TAB PO SCH (22:28)
[2022-10-21] MEDS: Benzonatate 100 MG CAP PO SCH ×3 (09:42→20:32)
[2022-10-21] MEDS: Apixaban 2.5 MG TAB PO SCH ×2 (09:42→20:33)
[2022-10-21] MEDS: Ezetimibe 10 MG TAB PO SCH (09:42)
[2022-10-21] MEDS: Aspirin Chewable 81 MG TAB PO SCH (09:42)
[2022-10-21] MEDS: Calcium Carbonate 500 MG TAB PO SCH ×2 (09:42→17:03)
[2022-10-21] MEDS: Loratadine 10 MG TAB PO SCH (09:42)
[2022-10-21] MEDS: sulfaSALAzine 500 MG TAB PO SCH ×2 (09:42→20:33)
[2022-10-21] MEDS: Clopidogrel Bisulfate 75 MG TAB PO SCH (09:42)
[2022-10-21] MEDS: Cholecalciferol 1,000 UNITS (25 MCG) TAB PO SCH (09:42)
[2022-10-21] MEDS: Docusate 100 MG CAP PO SCH ×2 (09:42→20:33)
[2022-10-21] MEDS: Fluticasone Propionate Nasal Spray 16 gm Bottle NASAL SCH (09:43)
[2022-10-21] MEDS: Carvedilol 6.25 MG TAB PO SCH ×2 (09:43→17:03)
[2022-10-21] MEDS: Lantiseptic Ointment 130 GM JAR TOP SCH ×2 (09:44→20:34)
[2022-10-21] MEDS ORDERED: Melatonin 3 MG TAB PO PRN (12:52)
[2022-10-21] MEDS: Folic Acid/Vit B Comp W-C PO SCH (20:33)
[2022-10-21] MEDS: Atorvastatin Calcium 40 MG TAB PO SCH (20:33)
[2022-10-21] MEDS: Tamsulosin HCl 0.4 MG CAP PO SCH (20:33)
[2022-10-21] MEDS: Acetaminophen 325 MG TAB PO PRN (20:34)
[2022-10-22 05:19] LABS: Mean Corpuscular HGB CONC 31.8 g/dL (32.0-36.0); Mean Corpuscular Hemoglobin 27.7 pg (27.0-31.0); Mean Corpuscular Volume 87.2 fl (78.0-98.0); Mean Platelet Volume 6.2 fL (7.4-10.4); Platelet Count 265 10x3/uL (130-400); RBC Distribution Width 16.5 % (11.5-14.5); White Blood Cell (WBC) Count 6.3 10x3/uL (4.8-10.8)
[2022-10-22 05:33] LABS: Anion Gap 18 mmol/L (10-20); BUN (Urea Nitrogen) 40 mg/dL (8.4-25.7); Calc. Creatinine Clearance 25 mL/min (70-130); Calcium 9.9 mg/dL (7.8-10.44); Carbon Dioxide 22 mmol/L (23-31); Chloride 106 mmol/L (98-107); Estimated GFR 26; Glucose 113 mg/dL (83-110); Potassium 4.5 mmol/L (3.5-5.1); Sodium 141 mmol/L (136-145)
[2022-10-22] MEDS: Docusate 100 MG CAP PO SCH ×2 (08:39→20:27)
[2022-10-22] MEDS: Benzonatate 100 MG CAP PO SCH ×4 (08:39→20:28)
[2022-10-22] MEDS: Fluticasone Propionate Nasal Spray 16 gm Bottle NASAL SCH (08:39)
[2022-10-22] MEDS: Cholecalciferol 1,000 UNITS (25 MCG) TAB PO SCH (08:39)
[2022-10-22] MEDS: sulfaSALAzine 500 MG TAB PO SCH ×2 (08:39→20:25)
[2022-10-22] MEDS: Aspirin Chewable 81 MG TAB PO SCH (08:39)
[2022-10-22] MEDS: Carvedilol 6.25 MG TAB PO SCH ×2 (08:40→17:11)
[2022-10-22] MEDS: Lantiseptic Ointment 130 GM JAR TOP SCH ×2 (08:40→20:29)
[2022-10-22] MEDS: Apixaban 2.5 MG TAB PO SCH ×2 (08:40→20:28)
[2022-10-22] MEDS: Clopidogrel Bisulfate 75 MG TAB PO SCH (08:40)
[2022-10-22] MEDS: Calcium Carbonate 500 MG TAB PO SCH ×2 (08:40→17:11)
[2022-10-22] MEDS: Loratadine 10 MG TAB PO SCH (08:40)
[2022-10-22] MEDS: Ezetimibe 10 MG TAB PO SCH (08:40)
[2022-10-22] MEDS: Acetaminophen 325 MG TAB PO PRN (08:47)
[2022-10-22] MEDS: Atorvastatin Calcium 40 MG TAB PO SCH (20:27)
[2022-10-22] MEDS: Tamsulosin HCl 0.4 MG CAP PO SCH (20:27)
[2022-10-22] MEDS: Folic Acid/Vit B Comp W-C PO SCH (20:28)
[2022-10-23] MEDS: Cholecalciferol 1,000 UNITS (25 MCG) TAB PO SCH (08:37)
[2022-10-23] MEDS: Ezetimibe 10 MG TAB PO SCH (08:37)
[2022-10-23] MEDS: Fluticasone Propionate Nasal Spray 16 gm Bottle NASAL SCH (08:37)
[2022-10-23] MEDS: sulfaSALAzine 500 MG TAB PO SCH ×2 (08:37→20:53)
[2022-10-23] MEDS: Clopidogrel Bisulfate 75 MG TAB PO SCH (08:38)
[2022-10-23] MEDS: Apixaban 2.5 MG TAB PO SCH ×2 (08:38→20:53)
[2022-10-23] MEDS: Aspirin Chewable 81 MG TAB PO SCH (08:38)
[2022-10-23] MEDS: Acetaminophen 325 MG TAB PO PRN (08:38)
[2022-10-23] MEDS: Calcium Carbonate 500 MG TAB PO SCH ×2 (08:38→17:07)
[2022-10-23] MEDS: Carvedilol 6.25 MG TAB PO SCH ×2 (08:38→17:07)
[2022-10-23] MEDS: Benzonatate 100 MG CAP PO SCH ×3 (08:38→20:54)
[2022-10-23] MEDS: Docusate 100 MG CAP PO SCH ×2 (08:38→20:53)
[2022-10-23] MEDS: Loratadine 10 MG TAB PO SCH (08:38)
[2022-10-23] MEDS: Lantiseptic Ointment 130 GM JAR TOP SCH ×2 (08:43→20:54)
[2022-10-23] MEDS: Atorvastatin Calcium 40 MG TAB PO SCH (20:53)
[2022-10-23] MEDS: GUAIFENESIN SF SOLN 200 MG/10 ML UDCUP PO PRN (20:53)
[2022-10-23] MEDS: Folic Acid/Vit B Comp W-C PO SCH (20:53)
[2022-10-23] MEDS: Tamsulosin HCl 0.4 MG CAP PO SCH (20:53)
[2022-10-23 21:32] LABS: Bilirubin Negative (Negative); Blood, Urine Negative (Negative); Clarity Clear (Clear); Glucose, Urine (Dipstick) Negative (Negative); Ketone, Urine Negative (Negative); Leukocyte Negative (Negative); Nitrite Negative (Negative); Protein, Urine (Dipstick) 30 mg/dL (Neg-Trace); Specific Gravity, Urine 1.015 (1.005-1.030); Urobilinogen 0.2 mg/dL (Less than 2); pH, Urine 5.5 (5.0-9.0)
[2022-10-23 21:35] LABS: Bacteria/HPF Rare-Few HPF (None Seen); Squamous Epithelial 0-3 HPF (0-3); WBC/HPF 0-3 HPF (0-3)
[2022-10-24] MEDS: Docusate 100 MG CAP PO SCH ×2 (08:10→21:02)
[2022-10-24] MEDS: sulfaSALAzine 500 MG TAB PO SCH ×2 (08:10→21:03)
[2022-10-24] MEDS: Clopidogrel Bisulfate 75 MG TAB PO SCH (08:10)
[2022-10-24] MEDS: GUAIFENESIN SF SOLN 200 MG/10 ML UDCUP PO PRN ×2 (08:10→16:44)
[2022-10-24] MEDS: Cholecalciferol 1,000 UNITS (25 MCG) TAB PO SCH (08:10)
[2022-10-24] MEDS: Acetaminophen 325 MG TAB PO PRN (08:10)
[2022-10-24] MEDS: Apixaban 2.5 MG TAB PO SCH ×2 (08:10→21:03)
[2022-10-24] MEDS: Aspirin Chewable 81 MG TAB PO SCH (08:10)
[2022-10-24] MEDS: Ezetimibe 10 MG TAB PO SCH (08:11)
[2022-10-24] MEDS: Carvedilol 6.25 MG TAB PO SCH ×2 (08:11→16:44)
[2022-10-24] MEDS: Calcium Carbonate 500 MG TAB PO SCH ×2 (08:11→16:44)
[2022-10-24] MEDS: Loratadine 10 MG TAB PO SCH (08:11)
[2022-10-24] MEDS: Lantiseptic Ointment 130 GM JAR TOP SCH ×2 (08:12→21:04)
[2022-10-24] MEDS: Fluticasone Propionate Nasal Spray 16 gm Bottle NASAL SCH (08:12)
[2022-10-24] MEDS: Benzonatate 100 MG CAP PO SCH ×2 (08:17→15:35)
[2022-10-24] MEDS: Folic Acid/Vit B Comp W-C PO SCH (21:02)
[2022-10-24] MEDS: Tamsulosin HCl 0.4 MG CAP PO SCH (21:03)
[2022-10-24] MEDS: Atorvastatin Calcium 40 MG TAB PO SCH (21:03)
[2022-10-25] MEDS: Acetaminophen 325 MG TAB PO PRN (00:36)
[2022-10-25 07:11] VITALS: BP 121/71; TEMP 98.5
[2022-10-25] MEDS: Aspirin Chewable 81 MG TAB PO SCH (08:00)
[2022-10-25] MEDS: Carvedilol 6.25 MG TAB PO SCH (08:00)
[2022-10-25] MEDS: Apixaban 2.5 MG TAB PO SCH (08:00)
[2022-10-25] MEDS: Calcium Carbonate 500 MG TAB PO SCH (08:00)
[2022-10-25] MEDS: Loratadine 10 MG TAB PO SCH (08:01)
[2022-10-25] MEDS: Clopidogrel Bisulfate 75 MG TAB PO SCH (08:01)
[2022-10-25] MEDS: Docusate 100 MG CAP PO SCH (08:01)
[2022-10-25] MEDS: sulfaSALAzine 500 MG TAB PO SCH (08:01)
[2022-10-25] MEDS: Cholecalciferol 1,000 UNITS (25 MCG) TAB PO SCH (08:01)
[2022-10-25] MEDS: Ezetimibe 10 MG TAB PO SCH (08:01)
[2022-10-25] MEDS: Fluticasone Propionate Nasal Spray 16 gm Bottle NASAL SCH (08:02)
[2022-10-25] MEDS: Lantiseptic Ointment 130 GM JAR TOP SCH (08:03)
== END 2022-10-25 11:35 | disposition home or self-care (01) | DRG 947 ==
LOC: MADMS 20:55
PROVIDERS: ADMIT Family Medicine; ATTEND Family Medicine
DX: R53.81 Other malaise (principal); I21.4 Non-ST elevation (NSTEMI) myocardial infarction; I42.9 Cardiomyopathy, unspecified; N18.4 Chronic kidney disease, stage 4 (severe); R53.1 Weakness; E78.5 Hyperlipidemia, unspecified; Z66 Do not resuscitate; E11.22 Type 2 diabetes mellitus with diabetic chronic kidney disease; I12.9 Hypertensive chronic kidney disease with stage 1 through stage 4 chronic kidney disease, or unspecified chronic kidney disease; I25.10 Atherosclerotic heart disease of native coronary artery without angina pectoris; F32.A Depression, unspecified; D63.1 Anemia in chronic kidney disease; Z95.1 Presence of aortocoronary bypass graft; I25.2 Old myocardial infarction; Z95.5 Presence of coronary angioplasty implant and graft; Z79.01 Long term (current) use of anticoagulants; Z86.73 Personal history of transient ischemic attack (TIA), and cerebral infarction without residual deficits; Z86.718 Personal history of other venous thrombosis and embolism; Z79.82 Long term (current) use of aspirin; Z79.899 Other long term (current) drug therapy; Z88.6 Allergy status to analgesic agent; Z88.1 Allergy status to other antibiotic agents; Z88.8 Allergy status to other drugs, medicaments and biological substances; Z91.81 History of falling; Z79.02 Long term (current) use of antithrombotics/antiplatelets
CPT/HCPCS: 36415; 36416; 80048; 81003; 81015; 85027; 87086; 90471; 90662; G0008

== ENCOUNTER 2023-01-16 10:48 | Inpatient (IN) | payer MEDICARE ==
[2023-01-16] MEDS ORDERED: Ondansetron ODT 4 MG TAB PO PRN (13:14)
[2023-01-16] MEDS ORDERED: Melatonin 3 MG TAB PO PRN (13:14)
[2023-01-16] MEDS ORDERED: FLU VACC QS2022-23(65YR UP)/PF 240 MCG/0.7 ML SYRINGE IM ONE (14:15)
[2023-01-16] MEDS: Carvedilol 6.25 MG TAB PO SCH (16:54)
[2023-01-16 19:56] LABS: Bilirubin Negative (Negative); Blood, Urine Negative (Negative); Clarity Clear (Clear); Glucose, Urine (Dipstick) Negative (Negative); Ketone, Urine Negative (Negative); Leukocyte Negative (Negative); Nitrite Negative (Negative); Protein, Urine (Dipstick) 100 mg/dL (Neg-Trace); Specific Gravity, Urine 1.015 (1.005-1.030); Urobilinogen 0.2 mg/dL (Less than 2); pH, Urine 5.5 (5.0-9.0)
[2023-01-16 20:05] LABS: Bacteria/HPF None Seen HPF (None Seen); CAUTI Indications for Culture Dysuria,urgency,freq; RBC/HPF None Seen HPF (0-3); Squamous Epithelial 0-3 HPF (0-3); WBC/HPF None Seen HPF (0-3)
[2023-01-16 20:06] LABS: Urine Culture Reflex No No
[2023-01-16] MEDS ORDERED: Melatonin 3 MG TAB PO SCH (21:00)
[2023-01-16] MEDS: sulfaSALAzine 500 MG TAB PO SCH (21:50)
[2023-01-16] MEDS: Docusate 100 MG CAP PO SCH (21:50)
[2023-01-16] MEDS: Acetaminophen 500 MG TAB PO SCH (21:51)
[2023-01-16] MEDS: Apixaban 2.5 MG TAB PO SCH (21:51)
[2023-01-16] MEDS: Mirtazapine 15 MG TAB PO SCH (21:52)
[2023-01-16] MEDS: Tamsulosin HCl 0.4 MG CAP PO SCH (21:53)
[2023-01-16] MEDS: Folic Acid/Vit B Comp W-C PO SCH (22:29)
[2023-01-17 05:36] LABS: Eosinophils 9 % (0-10); Hemoglobin 9.1 g/dL (14.0-18.0); Hypochromia SLIGHT = 6-15 cells (100X) (0-5/hpf); Lymphocytes 41 % (21-51); MDiff Complete? YES; Mean Corpuscular HGB CONC 30.7 g/dL (32.0-36.0); Mean Corpuscular Hemoglobin 26.4 pg (27.0-31.0); Mean Platelet Volume 7.3 fL (7.4-10.4); Microcytosis SLIGHT = 6-15 cells (100X) (0-5/hpf); Monocytes 6 % (0-10); Neutrophil 43 % (42-75); Platelet Count 214 10x3/uL (130-400); RBC Distribution Width 18.9 % (11.5-14.5); Red Blood Cell (RBC) Count 3.44 mill/uL (4.70-6.10); White Blood Cell (WBC) Count 5.7 10x3/uL (4.8-10.8)
[2023-01-17 05:39] LABS: ALT (SGPT) 21 U/L (8-55); AST (SGOT) 30 U/L (5-34); Alkaline Phosphatase 40 U/L (40-110); Anion Gap 15 mmol/L (10-20); BUN (Urea Nitrogen) 48 mg/dL (8.4-25.7); Bilirubin, Total 0.3 mg/dL (0.2-1.2); Calc. Creatinine Clearance 20 mL/min (70-130); Calcium 9.4 mg/dL (7.8-10.44); Carbon Dioxide 22 mmol/L (23-31); Chloride 107 mmol/L (98-107); Estimated GFR 22; Globulin 3.5 g/dL (2.4-3.5); Glucose 112 mg/dL (83-110); Potassium 3.6 mmol/L (3.5-5.1); Protein, Total 6.5 g/dL (5.8-8.1); Sodium 140 mmol/L (136-145)
[2023-01-17] MEDS ORDERED: predniSONE 1 MG TAB PO SCH (08:00)
[2023-01-17] MEDS: Apixaban 2.5 MG TAB PO SCH ×2 (08:37→21:06)
[2023-01-17] MEDS: Aspirin Chewable 81 MG TAB PO SCH (08:37)
[2023-01-17] MEDS: Docusate 100 MG CAP PO SCH ×2 (08:37→21:06)
[2023-01-17] MEDS: Loratadine 10 MG TAB PO SCH (08:37)
[2023-01-17] MEDS: Ezetimibe 10 MG TAB PO SCH (08:37)
[2023-01-17] MEDS: Acetaminophen 500 MG TAB PO SCH ×2 (08:37→21:06)
[2023-01-17] MEDS: Carvedilol 6.25 MG TAB PO SCH ×2 (08:37→16:59)
[2023-01-17] MEDS: sulfaSALAzine 500 MG TAB PO SCH ×2 (08:37→21:06)
[2023-01-17] MEDS: Clopidogrel Bisulfate 75 MG TAB PO SCH (08:37)
[2023-01-17] MEDS: Venlafaxine HCl XR 150 MG CAP PO SCH (08:37)
[2023-01-17] MEDS: Fluticasone Propionate Nasal Spray 16 gm Bottle NASAL SCH (08:38)
[2023-01-17] MEDS ORDERED: Cholecalciferol (Vitamin D3) 5,000 UNITS CAPSULE PO SCH ×2 (09:00→10:15)
[2023-01-17] MEDS: Folic Acid/Vit B Comp W-C PO SCH (21:05)
[2023-01-17] MEDS: Mirtazapine 15 MG TAB PO SCH (21:05)
[2023-01-17] MEDS: Tamsulosin HCl 0.4 MG CAP PO SCH (21:06)
[2023-01-17] MEDS: PITAVASTATIN CALCIUM 4 MG PO SCH (21:08)
[2023-01-17] MEDS: Lantiseptic Ointment 130 GM JAR TOP PRN (21:12)
[2023-01-18] MEDS: Carvedilol 6.25 MG TAB PO SCH ×2 (08:49→17:15)
[2023-01-18] MEDS: sulfaSALAzine 500 MG TAB PO SCH ×2 (08:50→20:46)
[2023-01-18] MEDS: Clopidogrel Bisulfate 75 MG TAB PO SCH (08:50)
[2023-01-18] MEDS: Cholecalciferol (Vitamin D3) 5,000 UNITS CAPSULE PO SCH (08:50)
[2023-01-18] MEDS: Aspirin Chewable 81 MG TAB PO SCH (08:50)
[2023-01-18] MEDS: Venlafaxine HCl XR 150 MG CAP PO SCH (08:50)
[2023-01-18] MEDS: Acetaminophen 500 MG TAB PO SCH ×2 (08:51→20:46)
[2023-01-18] MEDS: Ezetimibe 10 MG TAB PO SCH (08:51)
[2023-01-18] MEDS: Fluticasone Propionate Nasal Spray 16 gm Bottle NASAL SCH (08:51)
[2023-01-18] MEDS: Apixaban 2.5 MG TAB PO SCH ×2 (08:51→20:44)
[2023-01-18] MEDS: Docusate 100 MG CAP PO SCH ×2 (08:51→20:46)
[2023-01-18] MEDS: Loratadine 10 MG TAB PO SCH (08:51)
[2023-01-18] MEDS: Tamsulosin HCl 0.4 MG CAP PO SCH (20:44)
[2023-01-18] MEDS: Folic Acid/Vit B Comp W-C PO SCH (20:44)
[2023-01-18] MEDS: Mirtazapine 15 MG TAB PO SCH (20:45)
[2023-01-18] MEDS: PITAVASTATIN CALCIUM 4 MG PO SCH (20:48)
[2023-01-19] MEDS: Carvedilol 6.25 MG TAB PO SCH ×2 (08:26→17:03)
[2023-01-19] MEDS: Docusate 100 MG CAP PO SCH ×2 (08:26→20:12)
[2023-01-19] MEDS: Aspirin Chewable 81 MG TAB PO SCH (08:26)
[2023-01-19] MEDS: Venlafaxine HCl XR 150 MG CAP PO SCH (08:26)
[2023-01-19] MEDS: Loratadine 10 MG TAB PO SCH (08:26)
[2023-01-19] MEDS: Acetaminophen 500 MG TAB PO SCH ×2 (08:26→20:12)
[2023-01-19] MEDS: Cholecalciferol (Vitamin D3) 5,000 UNITS CAPSULE PO SCH (08:26)
[2023-01-19] MEDS: Ezetimibe 10 MG TAB PO SCH (08:27)
[2023-01-19] MEDS: sulfaSALAzine 500 MG TAB PO SCH ×2 (08:27→20:11)
[2023-01-19] MEDS: Apixaban 2.5 MG TAB PO SCH ×2 (08:27→20:12)
[2023-01-19] MEDS: Fluticasone Propionate Nasal Spray 16 gm Bottle NASAL SCH (08:27)
[2023-01-19] MEDS: Clopidogrel Bisulfate 75 MG TAB PO SCH (08:27)
[2023-01-19] MEDS: Folic Acid/Vit B Comp W-C PO SCH (20:11)
[2023-01-19] MEDS: Tamsulosin HCl 0.4 MG CAP PO SCH (20:12)
[2023-01-19] MEDS: Mirtazapine 15 MG TAB PO SCH (20:13)
[2023-01-19] MEDS: PITAVASTATIN CALCIUM 4 MG PO SCH (20:14)
[2023-01-20] MEDS: Nitroglycerin 0.4 MG TAB (25 Tab Bottle) SL PRN ×2 (05:54→06:01)
[2023-01-20] MEDS: Carvedilol 6.25 MG TAB PO SCH ×2 (06:39→17:08)
[2023-01-20 07:10] LABS: CKMB 1.2 ng/mL (0-6.6); Troponin I 0.026 ng/mL (< 0.028)
[2023-01-20] MEDS: Aspirin Chewable 81 MG TAB PO SCH (08:34)
[2023-01-20] MEDS: Loratadine 10 MG TAB PO SCH (08:34)
[2023-01-20] MEDS: Fluticasone Propionate Nasal Spray 16 gm Bottle NASAL SCH (08:34)
[2023-01-20] MEDS: Docusate 100 MG CAP PO SCH ×2 (08:34→21:17)
[2023-01-20] MEDS: Acetaminophen 500 MG TAB PO SCH ×2 (08:35→21:18)
[2023-01-20] MEDS: Clopidogrel Bisulfate 75 MG TAB PO SCH (08:35)
[2023-01-20] MEDS: Venlafaxine HCl XR 150 MG CAP PO SCH (08:35)
[2023-01-20] MEDS: sulfaSALAzine 500 MG TAB PO SCH ×2 (08:35→21:16)
[2023-01-20] MEDS: Cholecalciferol (Vitamin D3) 5,000 UNITS CAPSULE PO SCH (08:35)
[2023-01-20] MEDS: Ezetimibe 10 MG TAB PO SCH (08:35)
[2023-01-20] MEDS: Apixaban 2.5 MG TAB PO SCH ×2 (08:35→21:18)
[2023-01-20] MEDS: Folic Acid/Vit B Comp W-C PO SCH (21:16)
[2023-01-20] MEDS: Mirtazapine 15 MG TAB PO SCH (21:16)
[2023-01-20] MEDS: Tamsulosin HCl 0.4 MG CAP PO SCH (21:18)
[2023-01-20] MEDS: PITAVASTATIN CALCIUM 4 MG PO SCH (21:20)
[2023-01-20] MEDS: Lantiseptic Ointment 130 GM JAR TOP PRN (21:22)
[2023-01-21] MEDS: sulfaSALAzine 500 MG TAB PO SCH ×2 (09:19→19:39)
[2023-01-21] MEDS: Acetaminophen 500 MG TAB PO SCH ×2 (09:19→19:36)
[2023-01-21] MEDS: Aspirin Chewable 81 MG TAB PO SCH (09:20)
[2023-01-21] MEDS: Cholecalciferol (Vitamin D3) 5,000 UNITS CAPSULE PO SCH (09:20)
[2023-01-21] MEDS: Apixaban 2.5 MG TAB PO SCH ×2 (09:20→19:37)
[2023-01-21] MEDS: Loratadine 10 MG TAB PO SCH (09:20)
[2023-01-21] MEDS: Clopidogrel Bisulfate 75 MG TAB PO SCH (09:20)
[2023-01-21] MEDS: Carvedilol 6.25 MG TAB PO SCH ×2 (09:20→17:12)
[2023-01-21] MEDS: Venlafaxine HCl XR 150 MG CAP PO SCH (09:20)
[2023-01-21] MEDS: Ezetimibe 10 MG TAB PO SCH (09:20)
[2023-01-21] MEDS: Docusate 100 MG CAP PO SCH ×2 (09:20→19:37)
[2023-01-21] MEDS: Fluticasone Propionate Nasal Spray 16 gm Bottle NASAL SCH (09:21)
[2023-01-21] MEDS: Tamsulosin HCl 0.4 MG CAP PO SCH (19:37)
[2023-01-21] MEDS: Folic Acid/Vit B Comp W-C PO SCH (19:38)
[2023-01-21] MEDS: Mirtazapine 15 MG TAB PO SCH (19:39)
[2023-01-21] MEDS: PITAVASTATIN CALCIUM 4 MG PO SCH (19:43)
[2023-01-22] MEDS: Nitroglycerin 0.4 MG TAB (25 Tab Bottle) SL PRN ×4 (02:26→04:18)
[2023-01-22 05:11] LABS: CKMB 1.3 ng/mL (0-6.6); Troponin I 0.031 ng/mL (< 0.028)
[2023-01-22] MEDS: Carvedilol 6.25 MG TAB PO SCH ×2 (07:48→17:11)
[2023-01-22] MEDS: sulfaSALAzine 500 MG TAB PO SCH ×2 (08:54→21:18)
[2023-01-22] MEDS: Docusate 100 MG CAP PO SCH ×2 (08:54→21:18)
[2023-01-22] MEDS: Clopidogrel Bisulfate 75 MG TAB PO SCH (08:54)
[2023-01-22] MEDS: Venlafaxine HCl XR 150 MG CAP PO SCH (08:54)
[2023-01-22] MEDS: Acetaminophen 500 MG TAB PO SCH ×2 (08:54→21:18)
[2023-01-22] MEDS: Fluticasone Propionate Nasal Spray 16 gm Bottle NASAL SCH (08:54)
[2023-01-22] MEDS: Aspirin Chewable 81 MG TAB PO SCH (08:55)
[2023-01-22] MEDS: Ezetimibe 10 MG TAB PO SCH (08:55)
[2023-01-22] MEDS: Cholecalciferol (Vitamin D3) 5,000 UNITS CAPSULE PO SCH (08:55)
[2023-01-22] MEDS: Apixaban 2.5 MG TAB PO SCH ×2 (08:55→21:18)
[2023-01-22] MEDS: Loratadine 10 MG TAB PO SCH (08:55)
[2023-01-22 10:59] LABS: Hemoglobin 9.3 g/dL (14.0-18.0); Mean Corpuscular HGB CONC 29.9 g/dL (32.0-36.0); Mean Corpuscular Hemoglobin 26.7 pg (27.0-31.0); Mean Corpuscular Volume 89.3 fl (78.0-98.0); Mean Platelet Volume 6.8 fL (7.4-10.4); Platelet Count 220 10x3/uL (130-400); RBC Distribution Width 19.5 % (11.5-14.5); White Blood Cell (WBC) Count 5.3 10x3/uL (4.8-10.8)
[2023-01-22 11:09] LABS: ALT (SGPT) 22 U/L (8-55); AST (SGOT) 29 U/L (5-34); Albumin 3.2 g/dL (3.4-4.8); Alkaline Phosphatase 43 U/L (40-110); Anion Gap 15 mmol/L (10-20); BUN (Urea Nitrogen) 55 mg/dL (8.4-25.7); Bilirubin, Total 0.3 mg/dL (0.2-1.2); Calc. Creatinine Clearance 22 mL/min (70-130); Calcium 9.5 mg/dL (7.8-10.44); Carbon Dioxide 26 mmol/L (23-31); Chloride 104 mmol/L (98-107); Estimated GFR 24; Globulin 3.6 g/dL (2.4-3.5); Glucose 180 mg/dL (83-110); Potassium 4.1 mmol/L (3.5-5.1); Protein, Total 6.8 g/dL (5.8-8.1); Sodium 141 mmol/L (136-145)
[2023-01-22 11:33] VITALS: BMI 24.0
[2023-01-22 11:45] LABS: CKMB 1.5 ng/mL (0-6.6)
[2023-01-22 17:22] LABS: CKMB 1.3 ng/mL (0-6.6)
[2023-01-22] MEDS: Mirtazapine 15 MG TAB PO SCH (21:18)
[2023-01-22] MEDS: Folic Acid/Vit B Comp W-C PO SCH (21:18)
[2023-01-22] MEDS: Tamsulosin HCl 0.4 MG CAP PO SCH (21:19)
[2023-01-22] MEDS: PITAVASTATIN CALCIUM 4 MG PO SCH (21:21)
[2023-01-22] MEDS: Lantiseptic Ointment 130 GM JAR TOP PRN (21:22)
[2023-01-23] MEDS: Acetaminophen 500 MG TAB PO SCH ×2 (08:08→20:46)
[2023-01-23] MEDS: Aspirin Chewable 81 MG TAB PO SCH (08:08)
[2023-01-23] MEDS: Carvedilol 6.25 MG TAB PO SCH ×2 (08:08→16:53)
[2023-01-23] MEDS: Clopidogrel Bisulfate 75 MG TAB PO SCH (08:08)
[2023-01-23] MEDS: Apixaban 2.5 MG TAB PO SCH ×2 (08:08→20:46)
[2023-01-23] MEDS: sulfaSALAzine 500 MG TAB PO SCH ×2 (08:16→20:49)
[2023-01-23] MEDS: Ezetimibe 10 MG TAB PO SCH (08:17)
[2023-01-23] MEDS: Cholecalciferol (Vitamin D3) 5,000 UNITS CAPSULE PO SCH (08:17)
[2023-01-23] MEDS: Fluticasone Propionate Nasal Spray 16 gm Bottle NASAL SCH (08:17)
[2023-01-23] MEDS: Docusate 100 MG CAP PO SCH ×2 (08:17→20:46)
[2023-01-23] MEDS: Loratadine 10 MG TAB PO SCH (08:17)
[2023-01-23] MEDS: Venlafaxine HCl XR 150 MG CAP PO SCH (08:22)
[2023-01-23] MEDS: Mirtazapine 15 MG TAB PO SCH (20:46)
[2023-01-23] MEDS: Folic Acid/Vit B Comp W-C PO SCH (20:46)
[2023-01-23] MEDS: PITAVASTATIN CALCIUM 4 MG PO SCH (20:48)
[2023-01-23] MEDS: Tamsulosin HCl 0.4 MG CAP PO SCH (20:50)
[2023-01-23] MEDS: Lantiseptic Ointment 130 GM JAR TOP PRN (20:52)
[2023-01-24] MEDS: Fluticasone Propionate Nasal Spray 16 gm Bottle NASAL SCH (08:50)
[2023-01-24] MEDS: Cholecalciferol (Vitamin D3) 5,000 UNITS CAPSULE PO SCH (08:51)
[2023-01-24] MEDS: Carvedilol 6.25 MG TAB PO SCH ×2 (08:51→17:23)
[2023-01-24] MEDS: Aspirin Chewable 81 MG TAB PO SCH (08:51)
[2023-01-24] MEDS: Apixaban 2.5 MG TAB PO SCH ×2 (08:51→21:23)
[2023-01-24] MEDS: sulfaSALAzine 500 MG TAB PO SCH ×2 (08:51→21:24)
[2023-01-24] MEDS: Ezetimibe 10 MG TAB PO SCH (08:51)
[2023-01-24] MEDS: Loratadine 10 MG TAB PO SCH (08:51)
[2023-01-24] MEDS: Venlafaxine HCl XR 150 MG CAP PO SCH (08:53)
[2023-01-24] MEDS: Acetaminophen 500 MG TAB PO SCH ×2 (08:53→21:23)
[2023-01-24] MEDS: Docusate 100 MG CAP PO SCH ×2 (08:53→21:23)
[2023-01-24] MEDS: Folic Acid/Vit B Comp W-C PO SCH (21:23)
[2023-01-24] MEDS: Mirtazapine 15 MG TAB PO SCH (21:23)
[2023-01-24] MEDS: PITAVASTATIN CALCIUM 4 MG PO SCH (21:24)
[2023-01-24] MEDS: Tamsulosin HCl 0.4 MG CAP PO SCH (21:24)
[2023-01-25] MEDS: Carvedilol 6.25 MG TAB PO SCH ×2 (08:43→16:54)
[2023-01-25] MEDS: Ezetimibe 10 MG TAB PO SCH (08:43)
[2023-01-25] MEDS: Venlafaxine HCl XR 150 MG CAP PO SCH (08:43)
[2023-01-25] MEDS: Docusate 100 MG CAP PO SCH ×2 (08:43→20:28)
[2023-01-25] MEDS: Apixaban 2.5 MG TAB PO SCH ×2 (08:43→20:29)
[2023-01-25] MEDS: Clopidogrel Bisulfate 75 MG TAB PO SCH (08:43)
[2023-01-25] MEDS: Aspirin Chewable 81 MG TAB PO SCH (08:43)
[2023-01-25] MEDS: sulfaSALAzine 500 MG TAB PO SCH ×2 (08:43→20:29)
[2023-01-25] MEDS: Cholecalciferol (Vitamin D3) 5,000 UNITS CAPSULE PO SCH (08:43)
[2023-01-25] MEDS: Acetaminophen 500 MG TAB PO SCH ×2 (08:44→20:28)
[2023-01-25] MEDS: Fluticasone Propionate Nasal Spray 16 gm Bottle NASAL SCH (08:44)
[2023-01-25] MEDS: Loratadine 10 MG TAB PO SCH (08:44)
[2023-01-25] MEDS: Tamsulosin HCl 0.4 MG CAP PO SCH (20:28)
[2023-01-25] MEDS: Mirtazapine 15 MG TAB PO SCH (20:28)
[2023-01-25] MEDS: Folic Acid/Vit B Comp W-C PO SCH (20:28)
[2023-01-25] MEDS: PITAVASTATIN CALCIUM 4 MG PO SCH (20:29)
[2023-01-26] MEDS: Nitroglycerin 0.4 MG TAB (25 Tab Bottle) SL PRN ×2 (01:38→03:54)
[2023-01-26] MEDS: Venlafaxine HCl XR 150 MG CAP PO SCH (09:13)
[2023-01-26] MEDS: Cholecalciferol (Vitamin D3) 5,000 UNITS CAPSULE PO SCH (09:13)
[2023-01-26] MEDS: Acetaminophen 500 MG TAB PO SCH ×2 (09:13→20:51)
[2023-01-26] MEDS: Apixaban 2.5 MG TAB PO SCH ×2 (09:13→20:51)
[2023-01-26] MEDS: Clopidogrel Bisulfate 75 MG TAB PO SCH (09:13)
[2023-01-26] MEDS: sulfaSALAzine 500 MG TAB PO SCH ×2 (09:13→20:44)
[2023-01-26] MEDS: Docusate 100 MG CAP PO SCH ×2 (09:13→20:51)
[2023-01-26] MEDS: Fluticasone Propionate Nasal Spray 16 gm Bottle NASAL SCH (09:14)
[2023-01-26] MEDS: Carvedilol 6.25 MG TAB PO SCH ×2 (09:14→17:10)
[2023-01-26] MEDS: Loratadine 10 MG TAB PO SCH (09:14)
[2023-01-26] MEDS: Aspirin Chewable 81 MG TAB PO SCH (09:14)
[2023-01-26] MEDS: Ezetimibe 10 MG TAB PO SCH (09:14)
[2023-01-26] MEDS: Tamsulosin HCl 0.4 MG CAP PO SCH (20:45)
[2023-01-26] MEDS: Folic Acid/Vit B Comp W-C PO SCH (20:48)
[2023-01-26] MEDS: Mirtazapine 15 MG TAB PO SCH (20:48)
[2023-01-26] MEDS: PITAVASTATIN CALCIUM 4 MG PO SCH (20:57)
[2023-01-27] MEDS: Nitroglycerin 0.4 MG TAB (25 Tab Bottle) SL PRN ×2 (02:32→02:39)
[2023-01-27] MEDS: Acetaminophen 500 MG TAB PO SCH ×2 (08:24→20:39)
[2023-01-27] MEDS: sulfaSALAzine 500 MG TAB PO SCH ×2 (08:25→20:39)
[2023-01-27] MEDS: Clopidogrel Bisulfate 75 MG TAB PO SCH (08:25)
[2023-01-27] MEDS: Apixaban 2.5 MG TAB PO SCH ×2 (08:25→20:39)
[2023-01-27] MEDS: Loratadine 10 MG TAB PO SCH (08:25)
[2023-01-27] MEDS: Ezetimibe 10 MG TAB PO SCH (08:25)
[2023-01-27] MEDS: Cholecalciferol (Vitamin D3) 5,000 UNITS CAPSULE PO SCH (08:25)
[2023-01-27] MEDS: Carvedilol 6.25 MG TAB PO SCH ×2 (08:25→17:37)
[2023-01-27] MEDS: Docusate 100 MG CAP PO SCH ×2 (08:25→20:38)
[2023-01-27] MEDS: Aspirin Chewable 81 MG TAB PO SCH (08:25)
[2023-01-27] MEDS: Fluticasone Propionate Nasal Spray 16 gm Bottle NASAL SCH (08:26)
[2023-01-27] MEDS: Venlafaxine HCl XR 150 MG CAP PO SCH (08:34)
[2023-01-27] MEDS: Tamsulosin HCl 0.4 MG CAP PO SCH (20:38)
[2023-01-27] MEDS: Folic Acid/Vit B Comp W-C PO SCH (20:39)
[2023-01-27] MEDS: Mirtazapine 15 MG TAB PO SCH (20:40)
[2023-01-27] MEDS: PITAVASTATIN CALCIUM 4 MG PO SCH (20:43)
[2023-01-28] MEDS: Venlafaxine HCl XR 150 MG CAP PO SCH (08:30)
[2023-01-28] MEDS: Clopidogrel Bisulfate 75 MG TAB PO SCH (08:31)
[2023-01-28] MEDS: Cholecalciferol (Vitamin D3) 5,000 UNITS CAPSULE PO SCH (08:31)
[2023-01-28] MEDS: Acetaminophen 500 MG TAB PO SCH ×2 (08:31→20:28)
[2023-01-28] MEDS: Carvedilol 6.25 MG TAB PO SCH ×2 (08:31→17:42)
[2023-01-28] MEDS: Ezetimibe 10 MG TAB PO SCH (08:31)
[2023-01-28] MEDS: sulfaSALAzine 500 MG TAB PO SCH ×2 (08:32→20:28)
[2023-01-28] MEDS: Aspirin Chewable 81 MG TAB PO SCH (08:32)
[2023-01-28] MEDS: Apixaban 2.5 MG TAB PO SCH ×2 (08:32→20:27)
[2023-01-28] MEDS: Loratadine 10 MG TAB PO SCH (08:32)
[2023-01-28] MEDS: Docusate 100 MG CAP PO SCH ×2 (08:32→20:26)
[2023-01-28] MEDS: Fluticasone Propionate Nasal Spray 16 gm Bottle NASAL SCH (08:33)
[2023-01-28] MEDS: Folic Acid/Vit B Comp W-C PO SCH (20:27)
[2023-01-28] MEDS: Tamsulosin HCl 0.4 MG CAP PO SCH (20:28)
[2023-01-28] MEDS: Mirtazapine 15 MG TAB PO SCH (20:28)
[2023-01-28] MEDS: PITAVASTATIN CALCIUM 4 MG PO SCH (20:29)
[2023-01-29] MEDS: Ezetimibe 10 MG TAB PO SCH (08:06)
[2023-01-29] MEDS: sulfaSALAzine 500 MG TAB PO SCH ×2 (08:06→20:19)
[2023-01-29] MEDS: Venlafaxine HCl XR 150 MG CAP PO SCH (08:06)
[2023-01-29] MEDS: Loratadine 10 MG TAB PO SCH (08:06)
[2023-01-29] MEDS: Clopidogrel Bisulfate 75 MG TAB PO SCH (08:07)
[2023-01-29] MEDS: Docusate 100 MG CAP PO SCH ×2 (08:07→20:19)
[2023-01-29] MEDS: Acetaminophen 500 MG TAB PO SCH ×2 (08:07→20:20)
[2023-01-29] MEDS: Aspirin Chewable 81 MG TAB PO SCH (08:07)
[2023-01-29] MEDS: Cholecalciferol (Vitamin D3) 5,000 UNITS CAPSULE PO SCH (08:07)
[2023-01-29] MEDS: Carvedilol 6.25 MG TAB PO SCH ×2 (08:07→17:21)
[2023-01-29] MEDS: Apixaban 2.5 MG TAB PO SCH ×2 (08:07→20:19)
[2023-01-29] MEDS: Fluticasone Propionate Nasal Spray 16 gm Bottle NASAL SCH (08:07)
[2023-01-29] MEDS: Polyethylene Glycol 3350 17 GM Packet PO PRN (12:27)
[2023-01-29] MEDS ORDERED: Bisacodyl 10 MG SUPP PR PRN (15:56)
[2023-01-29] MEDS: Tamsulosin HCl 0.4 MG CAP PO SCH (20:19)
[2023-01-29] MEDS: Mirtazapine 15 MG TAB PO SCH (20:19)
[2023-01-29] MEDS: PITAVASTATIN CALCIUM 4 MG PO SCH (20:19)
[2023-01-29] MEDS: Folic Acid/Vit B Comp W-C PO SCH (20:19)
[2023-01-30] MEDS: Fluticasone Propionate Nasal Spray 16 gm Bottle NASAL SCH (09:16)
[2023-01-30] MEDS: Polyethylene Glycol 3350 17 GM Packet PO PRN ×2 (09:16→20:09)
[2023-01-30] MEDS: sulfaSALAzine 500 MG TAB PO SCH ×2 (09:16→20:08)
[2023-01-30] MEDS: Venlafaxine HCl XR 150 MG CAP PO SCH (09:17)
[2023-01-30] MEDS: Ezetimibe 10 MG TAB PO SCH (09:17)
[2023-01-30] MEDS: Carvedilol 6.25 MG TAB PO SCH ×2 (09:17→16:12)
[2023-01-30] MEDS: Acetaminophen 500 MG TAB PO SCH ×2 (09:17→20:09)
[2023-01-30] MEDS: Apixaban 2.5 MG TAB PO SCH ×2 (09:17→20:08)
[2023-01-30] MEDS: Loratadine 10 MG TAB PO SCH (09:17)
[2023-01-30] MEDS: Aspirin Chewable 81 MG TAB PO SCH (09:17)
[2023-01-30] MEDS: Docusate 100 MG CAP PO SCH ×2 (09:17→20:08)
[2023-01-30] MEDS: Cholecalciferol (Vitamin D3) 5,000 UNITS CAPSULE PO SCH (09:17)
[2023-01-30] MEDS: Clopidogrel Bisulfate 75 MG TAB PO SCH (09:17)
[2023-01-30 19:30] VITALS: TEMP 98.2
[2023-01-30] MEDS: Tamsulosin HCl 0.4 MG CAP PO SCH (20:08)
[2023-01-30] MEDS: Folic Acid/Vit B Comp W-C PO SCH (20:08)
[2023-01-30] MEDS: Mirtazapine 15 MG TAB PO SCH (20:09)
[2023-01-30] MEDS: PITAVASTATIN CALCIUM 4 MG PO SCH (20:11)
[2023-01-31] MEDS: Carvedilol 6.25 MG TAB PO SCH (08:21)
[2023-01-31] MEDS: Docusate 100 MG CAP PO SCH (08:21)
[2023-01-31] MEDS: Cholecalciferol (Vitamin D3) 5,000 UNITS CAPSULE PO SCH (08:21)
[2023-01-31] MEDS: sulfaSALAzine 500 MG TAB PO SCH (08:21)
[2023-01-31] MEDS: Clopidogrel Bisulfate 75 MG TAB PO SCH (08:21)
[2023-01-31] MEDS: Acetaminophen 500 MG TAB PO SCH (08:22)
[2023-01-31] MEDS: Apixaban 2.5 MG TAB PO SCH (08:22)
[2023-01-31] MEDS: Loratadine 10 MG TAB PO SCH (08:22)
[2023-01-31] MEDS: Aspirin Chewable 81 MG TAB PO SCH (08:22)
[2023-01-31] MEDS: Fluticasone Propionate Nasal Spray 16 gm Bottle NASAL SCH (08:22)
[2023-01-31] MEDS: Ezetimibe 10 MG TAB PO SCH (08:22)
[2023-01-31] MEDS: Venlafaxine HCl XR 150 MG CAP PO SCH (08:22)
[2023-01-31 10:03] VITALS: BP 145/71
== END 2023-01-31 10:20 | disposition home health service (06) | DRG 948 ==
LOC: MADMS 12:31
PROVIDERS: ADMIT Family Medicine; ATTEND Family Medicine
DX: R53.1 Weakness (principal); N18.4 Chronic kidney disease, stage 4 (severe); I13.0 Hypertensive heart and chronic kidney disease with heart failure and stage 1 through stage 4 chronic kidney disease, or unspecified chronic kidney disease; I50.20 Unspecified systolic (congestive) heart failure; I25.10 Atherosclerotic heart disease of native coronary artery without angina pectoris; E78.5 Hyperlipidemia, unspecified; M19.90 Unspecified osteoarthritis, unspecified site; E11.22 Type 2 diabetes mellitus with diabetic chronic kidney disease; F32.A Depression, unspecified; Z66 Do not resuscitate; I25.119 Atherosclerotic heart disease of native coronary artery with unspecified angina pectoris; I48.0 Paroxysmal atrial fibrillation; D63.1 Anemia in chronic kidney disease; I25.5 Ischemic cardiomyopathy; Z95.1 Presence of aortocoronary bypass graft; I25.2 Old myocardial infarction; Z95.5 Presence of coronary angioplasty implant and graft; Z86.718 Personal history of other venous thrombosis and embolism; Z79.01 Long term (current) use of anticoagulants; Z86.73 Personal history of transient ischemic attack (TIA), and cerebral infarction without residual deficits; Z88.5 Allergy status to narcotic agent; Z88.1 Allergy status to other antibiotic agents; Z79.899 Other long term (current) drug therapy; Z79.82 Long term (current) use of aspirin; Z98.890 Other specified postprocedural states; Z91.81 History of falling
CPT/HCPCS: 36415; 80053; 81001; 82550; 82553; 83880; 84484; 85025; 85027

== ENCOUNTER 2024-03-02 10:57 | Emergency (ER) | payer MEDICARE ==
[2024-03-02] MEDS ORDERED: Sodium Chloride 0.9% 1,000 ML ONE (11:25)
[2024-03-02] MEDS ORDERED: cefTRIAXone (ROCEPHIN) 1 GM VIAL ONE (11:35)
[2024-03-02] MEDS ORDERED: Sodium Chloride 0.9% 100 ML ONE (11:37)
[2024-03-02 12:07] LABS: ALT (SGPT) 16 U/L (8-55); AST (SGOT) 27 U/L (5-34); Albumin 2.8 g/dL (3.4-4.8); Alkaline Phosphatase 52 U/L (40-110); Anion Gap 22 mmol/L (10-20); BUN (Urea Nitrogen) 56 mg/dL (8.4-25.7); Bilirubin, Total 0.5 mg/dL (0.2-1.2); Calc. Creatinine Clearance 0 mL/min (70-130); Carbon Dioxide 16 mmol/L (23-31); Chloride 97 mmol/L (98-107); Estimated GFR 9; Globulin 3.3 g/dL (2.4-3.5); Glucose 184 mg/dL (83-110); Lipase 59 U/L (8-78); Magnesium 2.1 mg/dL (1.6-2.6); Potassium 4.2 mmol/L (3.5-5.1); Protein, Total 6.1 g/dL (5.8-8.1); Sodium 131 mmol/L (136-145)
[2024-03-02 12:14] LABS: Anisocytosis SLIGHT = 6-15 cells (100X) (0-5/hpf); Band 12 % (5-11); Hematocrit 28.1 % (42.0-52.0); Hemoglobin 8.3 g/dL (14.0-18.0); Hypochromia SLIGHT = 6-15 cells (100X) (0-5/hpf); Lymphocytes 6 % (21-51); MDiff Complete? YES; Mean Corpuscular HGB CONC 29.7 g/dL (32.0-36.0); Mean Corpuscular Hemoglobin 30.1 pg (27.0-31.0); Mean Corpuscular Volume 101.3 fl (78.0-98.0); Mean Platelet Volume 6.1 fL (7.4-10.4); Monocytes 5 % (0-10); Neutrophil 77 % (42-75); Platelet Count 262 10x3/uL (130-400); RBC Distribution Width 14.2 % (11.5-14.5); Red Blood Cell (RBC) Count 2.77 mill/uL (4.70-6.10); White Blood Cell (WBC) Count 22.2 10x3/uL (4.8-10.8)
[2024-03-02] MEDS ORDERED: fentaNYL 50 mcg/mL 1 mL Vial ONE (12:16)
[2024-03-02 12:25] LABS: Influenza A by NAA Not Detected (NotDetected); Influenza B by NAA Not Detected (NotDetected); SARS-CoV-2 NAA Rapid Test Not Detected (NotDetected)
[2024-03-02 12:26] LABS: Critical Call Chem-Lactate nur.aw2@1226
[2024-03-02] MEDS ORDERED: HUM PROTHROMBIN CPLX(PCC) 1,000 UNITS VIAL ONE (13:16)
== END 2024-03-02 14:15 | disposition short-term general hospital (02) ==
LOC: MADERS 10:57
DX: S37.011A Minor contusion of right kidney, initial encounter (principal); I95.9 Hypotension, unspecified; D64.9 Anemia, unspecified; N17.9 Acute kidney failure, unspecified; R55 Syncope and collapse; E78.00 Pure hypercholesterolemia, unspecified; I12.9 Hypertensive chronic kidney disease with stage 1 through stage 4 chronic kidney disease, or unspecified chronic kidney disease; N18.9 Chronic kidney disease, unspecified; F17.220 Nicotine dependence, chewing tobacco, uncomplicated; Z79.82 Long term (current) use of aspirin; Z79.01 Long term (current) use of anticoagulants; Z79.899 Other long term (current) drug therapy; W18.30XA Fall on same level, unspecified, initial encounter
CPT/HCPCS: 0240U; 36430; 74176; 83605; 83690; 83735; 83880; 86850; 86900; 86901; 86920; 87040; 93005; J2597; J7168; P9016; 80053; 84443; 85025; 96361; 96374; 96375; J0696; J3010; J3490; J7050